=== PATIENT | female | born 1960 | race African-American/Black ===

== ENCOUNTER 2016-07-14 07:58 | Day surgery (SDC) | payer OTHER ==
[2016-07-14 08:46] LABS: BASOPHIL 0.7 % (0-2.0); EOSINOPHIL 5.3 % (0-4.5); MCH 37.6 pg (25.7-33.7); MCHC 36.9 g/dl (32.0-36.0); MEAN PLT VOLUME 8.5 fl (7.5-11.1); NEUTROPHILS 62.5 % (42.8-82.8); PLATELET COUNT 287 K/MM3 (134-434); RDW 28.5 % (11.6-15.6)
[2016-07-14 09:20] LABS: ALBUMIN 3.9 g/dl (3.4-5.0); BILIRUBIN,DIRECT 0.5 mg/dL (0.0-0.2); CALCIUM 9.2 mg/dL (8.5-10.1); CREATININE 0.9 mg/dL (0.55-1.02); TOT PROT 7.9 g/dl (6.4-8.2)
[2016-07-14 13:10] LABS: ANISOCYTOSIS 3+; MICROCYTOSIS 1+; POIKILOCYTOSIS 4+; POLYCHROMASIA 2+; TARGET CELLS 4+
--- NOTE | 2016-07-14 13:50 | HP ---
Satellite [facility] - Chief Complaint Chief Complaint: Here for f/u of sickkle cell. 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) Heme/Onc: Yes: Sickle Cell Disease Endocrine: Yes: Hypothyroidism - Current Medications Current Medications: Home Medications Medication Instructions Recorded Folic Acid - 1 mg PO DAILY 02/19/12 Levothyroxine [Synthroid -] 25 mcg PO DAILY 02/19/12 Ramipril [Altace] 5 mg PO DAILY 04/05/12 Spironolactone [Aldactone -] 25 mg PO DAILY 04/05/12 Hydroxyurea [Hydrea 500Mg Capsule 500 mg PO BID 04/18/13 -] Lansoprazole [Prevacid] 30 mg PO DAILY 08/29/13 Metoprolol Tartrate [Lopressor -] 50 mg PO BID 06/18/15 Oxycodone HCl/Acetaminophen 1 tab PO Q6H PRN #60 tablet 07/09/15 [Percocet 5-325 mg Tablet] Satellite Physical Exam - Physical Examination General Appearance: Well Nourished, Well Developed Lung: Clear to auscultation Heart: Regular rate & rhythm, Normal S1 Abdomen: No tenderness, Normal bowel sounds Extremities: No edema Neurological: Intact Satellite Impression/Plan - Impression/Plan Impression: Sickle cell anemia. will transfuse 2 unit PRBCs over 4hrs.- 8hrs. check CXR. start ceftin. If no improvement emmanuelle sheriff to ENT
--- NOTE | 2016-07-14 16:07 | CON.CARD ---
Consult Consult Specialty:: Cardiology Referred by:: Dr. Rodarte Reason for Consultation:: Resolved cardiomyopathy, palpitations - History of Present Illness Chief Complaint: Hoarse voice, anemia History of Present Illness: Patient is a 56 year old female with underlying history of nonischemic dilated cardiomyopathy with improvement in LV systolic function, in addition to sickle cell disease followed by Dr. Jaffe, left ankle fracture post repair, presented with hoarse voice, anemia planned for 2 U PRBC transfusion. She remains asymptomatic from CV-standpoint and denies chest pain, SOB or palpitations, near or true syncope, palpitations, PND, LE edema or orthopnea. 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) Endocrine: Yes: Hypothyroidism - Alcohol/Substance Use Hx Alcohol Use: No History of Substance Use: reports: None - Smoking History Smoking history: Never smoked Have you smoked in the past 12 months: No Aproximately how many cigarettes per day: 0 - Social History History of Recent Travel: No Home Medications - Allergies Allergies/Adverse Reactions: Allergies Allergy/AdvReac Type Severity Reaction Status Date / Time codeine [Codeine] Allergy Verified 10/01/15 08:49 - Home Medications Home Medications: Ambulatory Orders Folic Acid - 1 mg PO DAILY 02/19/12 Levothyroxine [Synthroid -] 25 mcg PO DAILY 02/19/12 Ramipril [Altace] 5 mg PO DAILY 04/05/12 Spironolactone [Aldactone -] 25 mg PO DAILY 04/05/12 Hydroxyurea [Hydrea 500Mg Capsule -] 500 mg PO BID 04/18/13 Lansoprazole [Prevacid] 30 mg PO DAILY 08/29/13 Metoprolol Tartrate [Lopressor -] 50 mg PO BID 06/18/15 Oxycodone HCl/Acetaminophen [Percocet 5-325 mg Tablet] 1 tab PO Q6H PRN #60 tablet 07/09/15 Review of Systems - Review of Systems HENT: reports: Other (Hoarse voice) Constitutional: Yes: No Distress, Calm Neck: Yes: Supple Respiratory: Yes: Regular, CTA Bilaterally Gastrointestinal: Yes: Normal Bowel Sounds, Soft Cardiovascular: Yes: Regular Rate and Rhythm JVD: No Carotid Bruit: No Heart Sounds: Yes: S1, S2 Edema: No - Other Data Labs, Other Data: CBC, BMP 07/14/16 08:35 07/14/16 08:35 Ejection Fraction %: LVEF > or = 40 % Problem List - Problems (1) Dilated cardiomyopathy Code(s): I42.0 - DILATED CARDIOMYOPATHY (2) Hypertension Code(s): I10 - ESSENTIAL (PRIMARY) HYPERTENSION Qualifiers: Hypertension type: essential hypertension Qualified Code(s): I10 - Essential (primary) hypertension (3) Hypothyroidism Code(s): E03.9 - HYPOTHYROIDISM, UNSPECIFIED Qualifiers: Hypothyroidism type: unspecified Qualified Code(s): E03.9 - Hypothyroidism, unspecified (4) Sickle cell anemia Code(s): D57.1 - SICKLE-CELL DISEASE WITHOUT CRISIS Qualifiers: Sickle-cell associated disorders: without crisis Qualified Code(s): D57.1 - Sickle-cell disease without crisis Assessment/Plan 1. Sickle cell disease with severe anemia 2. History of nonischemic dilated cardiomyopathy since resolved 3. Hypothyroidism PLAN: 1. Planned for transfusion with PRBC. Follow CBC 2. Continue Metoprolol ER 50 bid, Altace 5 qd, Aldactone 25 qd 3. Consider ENT referral as outpatient to [facility] if hoarse voice persists despite conservative therapy 4. Thank you for consultative opportunity, she has f/u to see me in ry
[2016-07-14] MEDS ORDERED: CEFUROXIME AXETIL 500 MG TABLET PO SCH ×2 (16:30→22:00)
[2016-07-14] MEDS ORDERED: FUROSEMIDE 40 MG/4 ML INJECTABLE VIAL IVPB ONE (16:48)
[2016-07-14 16:57] VITALS: BP 117/61; PULSE 91; TEMP 98.2; BMI 22.8
[2016-07-14] MEDS ORDERED: FUROSEMIDE 40 MG/4 ML INJECTABLE VIAL ONE (19:36)
== END 2016-07-14 22:28 | disposition home or self-care (01) ==
LOC: JBLOOD 07:58 → J7W 07:59 → JBLOOD 22:28
PROVIDERS: ATTEND Internal Medicine Hematology & Oncology
PROC: 30233N1 Transfusion of Nonautologous Red Blood Cells into Peripheral Vein, Percutaneous Approach (ICD-10-PCS; principal; 2016-07-14)
DX: D57.1 Sickle-cell disease without crisis (principal); E03.9 Hypothyroidism, unspecified; I50.9 Heart failure, unspecified; I10 Essential (primary) hypertension
CPT/HCPCS: 36415; 36430; 71010-TC; 80048; 80076; 85025; 86850; 86900; 86901; 86922; P9058

== ENCOUNTER 2016-08-25 08:23 | Day surgery (SDC) | payer OTHER ==
[2016-08-25 09:51] LABS: BASOPHIL 1.3 % (0-2.0); EOSINOPHIL 3.9 % (0-4.5); MCH 35.3 pg (25.7-33.7); MCHC 33.9 g/dl (32.0-36.0); MEAN CELL VOLUME 104.1 fl (80-96); MEAN PLT VOLUME 8.4 fl (7.5-11.1); NEUTROPHILS 71.9 % (42.8-82.8); PLATELET COUNT 504 K/MM3 (134-434); RDW 28.1 % (11.6-15.6); WHITE BLOOD COUNT 12.4 K/mm3 (4.0-10.0)
[2016-08-25 10:23] LABS: INR 1.07 (0.82-1.09); PROTHROMBIN TIME (PATIENT) 11.8 SEC (9.98-11.88)
[2016-08-25 11:46] LABS: ANISOCYTOSIS 4+; HYPOCHROMIA 2+; MICROCYTOSIS FEW; POIKILOCYTOSIS 2+; POLYCHROMASIA 4+
[2016-08-25 11:47] LABS: TEAR DROP CELLS FEW
--- NOTE | 2016-08-25 11:58 | PN ---
Progress Note (short form) - Note Progress Note: Initial Hospital Visit 56 year old with Sickle cell disease in for blood transfusion. On Hydrea- 500 mg daily. Transfusion dependent. Recent URI and trial of steroids for persistent cough resulted to increase bone pains. History of left ankle surgery with persistent pains. ROS No headaches, diplopia, epistaxis, dysphagia, SOB, GOLDEN , no nausea, emesis, diarrhea, melena, diffuse myalgias, arthralgias, left ankle pains Meds- Prednisone recently discontinued Hydrea-500 mg daily Last Vital Signs Temp Pulse Resp BP Pulse Ox 98.1 F 71 18 116/63 08/25/16 10:27 08/25/16 10:27 08/25/16 10:27 08/25/16 10:27 HEENT: TIANA, EOM Intact Oropharynx: No thrush, No mucositis Neck: Supple Nodes: Without adenopathy Cor: RSR, systolic murmur Lungs: Clear to P&A Abd: Soft, Normal bowel sounds, No organomegaly Ext:No significant edema Skin: No rashes, Integument intact CBC, BMP 08/25/16 09:22 Current Medications Generic Name Dose Route Start Last Admin Trade Name Freq PRN Reason Stop Dose Admin Furosemide 40 mg 08/25/16 13:00 Lasix - PO 08/25/16 13:01 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 Made aware that patient will still have significant anemia after one unit. Nonetheless requests only the one unit.
[2016-08-25] MEDS ORDERED: FUROSEMIDE 40 MG TABLET (FP) PO ONE ×2 (13:00→15:30)
[2016-08-25] MEDS ORDERED: POTASSIUM CHLORIDE TABS 20 MEQ TABLET.ER (FP) PO ONE ×2 (13:00→15:30)
[2016-08-25 15:45] VITALS: BP 130/78; PULSE 77; TEMP 97.1
== END 2016-08-25 15:48 | disposition home or self-care (01) ==
LOC: JBLOOD 08:23 → J7W 08:29 → JBLOOD 15:48
PROVIDERS: ATTEND Internal Medicine Hematology & Oncology
PROC: 30233N1 Transfusion of Nonautologous Red Blood Cells into Peripheral Vein, Percutaneous Approach (ICD-10-PCS; principal; 2016-08-25)
DX: D57.80 Other sickle-cell disorders without crisis (principal)
CPT/HCPCS: 36415; 36430; 83735; 85025; 85027; 85610; 86850; 86900; 86901; 86922; P9038; P9058

== ENCOUNTER 2016-09-21 08:48 | Emergency (ER) | payer OTHER ==
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
[2016-09-21] MEDS ORDERED: METOCLOPRAMIDE HCL INJECTION 10 MG/2 ML VIAL ONE (09:11)
[2016-09-21] MEDS ORDERED: morphine CARPU-JECT 2 MG/1 ML DISP.SYRIN ONE (09:12)
[2016-09-21] MEDS: METOCLOPRAMIDE HCL INJECTION 10 MG/2 ML VIAL IVPUSH ONE (09:18)
[2016-09-21] MEDS: morphine CARPU-JECT 2 MG/1 ML DISP.SYRIN IVPUSH ONE (09:18)
[2016-09-21 10:13] VITALS: BMI 22.8
[2016-09-21 10:27] LABS: BASOPHIL 0.6 % (0-2.0); EOSINOPHIL 1.7 % (0-4.5); MCH 35.1 pg (25.7-33.7); MCHC 34.1 g/dl (32.0-36.0); MEAN CELL VOLUME 102.9 fl (80-96); MEAN PLT VOLUME 8.6 fl (7.5-11.1); NEUTROPHILS 77.1 % (42.8-82.8); PLATELET COUNT 229 K/MM3 (134-434); RDW 27.3 % (11.6-15.6); WHITE BLOOD COUNT 17.2 K/mm3 (4.0-10.0)
[2016-09-21] MEDS ORDERED: levETIRAcetam 500 MG/5 ML INJECTION VIAL IVPB ONE (10:30)
[2016-09-21] MEDS ORDERED: morphine CARPU-JECT 4 MG/1 ML DISP.SYRIN ONE (10:30)
[2016-09-21] MEDS: morphine CARPU-JECT 4 MG/1 ML DISP.SYRIN IVPUSH ONE (10:38)
[2016-09-21] MEDS: levETIRAcetam 500 MG/5 ML INJECTION VIAL IVPB ONE (10:40)
[2016-09-21 10:48] LABS: ALBUMIN 4.1 g/dl (3.4-5.0); ALK PHOS 119 U/L (45-117); ANION GAP 10 (8-16); BILIRUBIN,TOTAL 4.9 mg/dL (0.2-1.0); CALCIUM 8.6 mg/dL (8.5-10.1); CO2 23 mmol/L (21-32); COCKROFT - GAULT 81.685; CREATININE 0.8 mg/dL (0.55-1.02); GLUCOSE,RANDOM 136 mg/dL (74-106); SGOT/AST 54 U/L (15-37); SGPT/ALT 28 U/L (12-78); TOT PROT 7.9 g/dl (6.4-8.2)
[2016-09-21 10:53] LABS: INR 1.12 (0.82-1.09); PROTHROMBIN TIME (PATIENT) 12.3 SEC (9.98-11.88)
[2016-09-21 11:04] VITALS: BP 149/71
[2016-09-21 11:23] VITALS: PULSE 71; TEMP 98.2
--- NOTE | 2016-09-21 11:35 | EKG ---
Test Reason : Blood Pressure : / mmHG Vent. Rate : 085 BPM Atrial Rate : 085 BPM P-R Int : 146 ms QRS Dur : 090 ms QT Int : 364 ms P-R-T Axes : 078 065 083 degrees QTc Int : 433 ms NORMAL SINUS RHYTHM NORMAL ECG WHEN COMPARED WITH ECG OF 08-JUL-2015 10:21, PREMATURE VENTRICULAR COMPLEXES ARE NO LONGER PRESENT NONSPECIFIC T WAVE ABNORMALITY NOW EVIDENT IN LATERAL LEADS Confirmed by GEORGE BELL, JATINDER ([id number]) on 09/21/2016 11:35:24 AM Referred By: Confirmed By:JATINDER VAZQUEZ MD
[2016-09-21 13:46] LABS: ANISOCYTOSIS 3+; MICROCYTOSIS FEW; POIKILOCYTOSIS 4+; TARGET CELLS 1+
[2016-09-21 13:47] LABS: POLYCHROMASIA 2+
== END 2016-09-21 11:23 | disposition short-term general hospital (02) ==
LOC: JER 08:48
DX: I60.8 Other nontraumatic subarachnoid hemorrhage (principal); I25.10 Atherosclerotic heart disease of native coronary artery without angina pectoris; I11.0 Hypertensive heart disease with heart failure; E03.9 Hypothyroidism, unspecified; D57.1 Sickle-cell disease without crisis; V47.5XXA Car driver injured in collision with fixed or stationary object in traffic accident, initial encounter; Y92.414 Local residential or business street as the place of occurrence of the external cause; W22.11XA Striking against or struck by driver side automobile airbag, initial encounter; Y93.89 Activity, other specified; Y99.8 Other external cause status
CPT/HCPCS: 36415; 70450-TC; 72125-TC; 80053; 85025; 85610; 86850; 86900; 86901; 93005; 93010; 99285-25

== ENCOUNTER 2016-12-22 08:08 | Day surgery (SDC) | payer OTHER ==
[2016-12-22 08:42] LABS: MCH 35.1 pg (25.7-33.7); MCHC 35.6 g/dl (32.0-36.0); MEAN CELL VOLUME 98.5 fl (80-96); MEAN PLT VOLUME 8.4 fl (7.5-11.1); PLATELET COUNT 288 K/MM3 (134-434); RDW 33.3 % (11.6-15.6); WHITE BLOOD COUNT 13.6 K/mm3 (4.0-10.0)
[2016-12-22] MEDS ORDERED: FUROSEMIDE 40 MG/4 ML INJECTABLE VIAL IVPUSH ONE (09:00)
[2016-12-22 09:05] LABS: ALBUMIN 3.8 g/dl (3.4-5.0); ALK PHOS 131 U/L (45-117); ANION GAP 7 (8-16); BILIRUBIN,TOTAL 4.7 mg/dL (0.2-1.0); CALCIUM 8.7 mg/dL (8.5-10.1); CO2 22 mmol/L (21-32); CREATININE 1.1 mg/dL (0.55-1.02); GLUCOSE,RANDOM 87 mg/dL (74-106); SGOT/AST 67 U/L (15-37); SGPT/ALT 42 U/L (12-78); TOT PROT 7.5 g/dl (6.4-8.2)
[2016-12-22 11:40] LABS: ANISOCYTOSIS 3+; PLATELET ESTIMATE ADEQUATE (NORMAL)
[2016-12-22 12:41] VITALS: TEMP 98.6
--- NOTE | 2016-12-22 13:37 | HP ---
Satellite [facility] - Chief Complaint Chief Complaint: Satellite visit for PRBC transfusion History of Present Illness: is a 56 year old Female with Sickle cell Disease On hydrea. She is transfusion dependent. She is here for transfusion of PRBC.She denies any complains. She feels well. She also has H/O cardiomyopathy , she follows up with Cardiology as an OP History Source: Patient Limitations to Obtaining History: No Limitations - Past Medical History Allergies/Adverse Reactions: Allergies Allergy/AdvReac Type Severity Reaction Status Date / Time codeine [Codeine] Allergy Verified 09/21/16 09:08 SENIOR PROJECT COORDINATOR: No: Peripheral Neuropathy, Syncope Cardiovascular: Yes: CHF, HTN, Other (Nonischemic dilated cardiomyopathy now with normal LV function) Pulmonary: No: Asthma Gastrointestinal: No: Ascites Hepatobiliary: No: Cirrhosis, Cholelithiasis, Cholecystitis Heme/Onc: Yes: Sickle Cell Disease Endocrine: Yes: Hypothyroidism - Current Medications Current Medications: Home Medications Medication Instructions Recorded Folic Acid - 1 mg PO DAILY 02/19/12 Levothyroxine [Synthroid -] 25 mcg PO DAILY 02/19/12 Ramipril [Altace] 5 mg PO DAILY 04/05/12 Spironolactone [Aldactone -] 25 mg PO DAILY 04/05/12 Hydroxyurea [Hydrea 500Mg Capsule 500 mg PO BID 04/18/13 -] Lansoprazole [Prevacid] 30 mg PO DAILY 08/29/13 Metoprolol Tartrate [Lopressor -] 50 mg PO BID 06/18/15 Satellite Physical Exam - Physical Examination Vital Signs: Vital Signs Period Temp Pulse Resp BP Sys/Avila Pulse Ox Last 24 Hr 98.0 F-98.6 F 64-64 18-20 99-108/64-69 96 General Appearance: Well Nourished, Well Developed, Alert & Oriented x3 ENT: No Discharge Lung: Clear to auscultation Heart: Regular rate & rhythm Abdomen: Soft, No tenderness Extremities: No edema Satellite Impression/Plan - Impression/Plan Impression: Sickle cell anemia. will transfuse 1 unit PRBC. Hyper Kalemia of 5.3 - given kayexalate and also lasic ordered. Patient has follow-up with of Cardiology
[2016-12-22] MEDS ORDERED: FUROSEMIDE 40 MG/4 ML INJECTABLE VIAL ONE (14:57)
[2016-12-22 16:34] VITALS: BP 117/56; PULSE 67
[2016-12-22 17:06] LABS: MCH 32.7 pg (25.7-33.7); MCHC 34.7 g/dl (32.0-36.0); MEAN CELL VOLUME 94.2 fl (80-96); MEAN PLT VOLUME 8.7 fl (7.5-11.1); PLATELET COUNT 298 K/MM3 (134-434); RDW 31.5 % (11.6-15.6); WHITE BLOOD COUNT 11.4 K/mm3 (4.0-10.0)
== END 2016-12-22 16:37 | disposition home or self-care (01) ==
LOC: JONCBLOOD 08:08 → J7W 08:10 → JONCBLOOD 16:37
PROVIDERS: ATTEND Internal Medicine Hematology & Oncology
PROC: 30233N1 Transfusion of Nonautologous Red Blood Cells into Peripheral Vein, Percutaneous Approach (ICD-10-PCS; principal; 2016-12-22)
PROC: 3E033GC Introduction of Other Therapeutic Substance into Peripheral Vein, Percutaneous Approach (ICD-10-PCS; 2016-12-22)
DX: D57.80 Other sickle-cell disorders without crisis (principal)
CPT/HCPCS: 36415; 36430; 80053; 85025; 85027; 85044; 86850; 86900; 86901; 86922; P9038; P9058

== ENCOUNTER 2017-02-02 08:07 | Day surgery (SDC) | payer OTHER ==
[2017-02-02 09:16] LABS: MCHC 35.9 g/dl (32.0-36.0); MEAN CELL VOLUME 103.1 fl (80-96); MEAN PLT VOLUME 8.4 fl (7.5-11.1); PLATELET COUNT 316 K/MM3 (134-434); RDW 29.7 % (11.6-15.6); WHITE BLOOD COUNT 11.2 K/mm3 (4.0-10.0)
[2017-02-02 10:26] LABS: ANISOCYTOSIS 3+; POLYCHROMASIA 2+
[2017-02-02 10:27] LABS: MACROCYTOSIS 2+; MICROCYTOSIS FEW; TARGET CELLS 2+
--- NOTE | 2017-02-02 14:41 | HP ---
Satellite [facility] - Chief Complaint Chief Complaint: PAtient seen and examined. 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) Heme/Onc: Yes: Sickle Cell Disease Endocrine: Yes: Hypothyroidism - Current Medications Current Medications: Home Medications Medication Instructions Recorded Folic Acid - 1 mg PO DAILY 02/19/12 Levothyroxine [Synthroid -] 25 mcg PO DAILY 02/19/12 Ramipril [Altace] 5 mg PO DAILY 04/05/12 Spironolactone [Aldactone -] 25 mg PO DAILY 04/05/12 Hydroxyurea [Hydrea 500Mg Capsule 500 mg PO BID 04/18/13 -] Lansoprazole [Prevacid] 30 mg PO DAILY 08/29/13 Metoprolol Tartrate [Lopressor -] 50 mg PO BID 06/18/15 Satellite Physical Exam - Physical Examination Vital Signs: Vital Signs Period Temp Pulse Resp BP Sys/Avila Pulse Ox Last 24 Hr 97.2 F 63 16 127/67 General Appearance: Well Nourished, Alert & Oriented x3 Lung: Clear to auscultation, Normal air movement Heart: Regular rate & rhythm, Normal S1, Normal S2 Abdomen: Soft, No tenderness Extremities: No edema Neurological: Intact Satellite Impression/Plan - Impression/Plan Impression: Sickle cell anemia. transfuse 1 unit PRBCs
[2017-02-02 16:21] VITALS: BP 140/68; PULSE 80; TEMP 98.6
[2017-02-02 16:46] LABS: MCH 36.6 pg (25.7-33.7); MCHC 36.2 g/dl (32.0-36.0); MEAN CELL VOLUME 101.2 fl (80-96); MEAN PLT VOLUME 8.8 fl (7.5-11.1); PLATELET COUNT 316 K/MM3 (134-434); RDW 27.4 % (11.6-15.6); WHITE BLOOD COUNT 10.2 K/mm3 (4.0-10.0)
[2017-02-02 17:37] LABS: ANISOCYTOSIS 3+; MACROCYTOSIS 1+; PLATELET ESTIMATE ADEQUATE (NORMAL); POIKILOCYTOSIS 1+; POLYCHROMASIA 1+
[2017-02-02 17:38] LABS: TARGET CELLS 1+
[2017-02-02 17:42] LABS: HOWELL-JOLLY BODIES SEEN
== END 2017-02-02 16:22 | disposition home or self-care (01) ==
LOC: J7W 08:07 → JONCBLOOD 08:07
PROVIDERS: ATTEND Internal Medicine Hematology & Oncology
PROC: 30233N1 Transfusion of Nonautologous Red Blood Cells into Peripheral Vein, Percutaneous Approach (ICD-10-PCS; principal; 2017-02-02)
DX: D57.80 Other sickle-cell disorders without crisis (principal)
CPT/HCPCS: 36415; 36430; 85027; 86850; 86900; 86901; 86922; P9038; P9058

== ENCOUNTER 2017-03-16 08:14 | Day surgery (SDC) | payer OTHER ==
[2017-03-16 08:59] LABS: BASOPHIL 1.1 % (0-2.0); EOSINOPHIL 7.5 % (0-4.5); MCH 37.7 pg (25.7-33.7); MCHC 34.9 g/dl (32.0-36.0); MEAN PLT VOLUME 8.4 fl (7.5-11.1); NEUTROPHILS 73.1 % (42.8-82.8); PLATELET COUNT 302 K/MM3 (134-434); RDW 29.3 % (11.6-15.6); WHITE BLOOD COUNT 11.6 K/mm3 (4.0-10.0)
[2017-03-16 09:15] LABS: ALBUMIN 3.7 g/dl (3.4-5.0); ALK PHOS 131 U/L (45-117); ANION GAP 9 (8-16); BILIRUBIN,TOTAL 4.9 mg/dL (0.2-1.0); CALCIUM 8.8 mg/dL (8.5-10.1); CO2 23 mmol/L (21-32); CREATININE 0.8 mg/dL (0.55-1.02); GLUCOSE,RANDOM 84 mg/dL (74-106); SGOT/AST 50 U/L (15-37); SGPT/ALT 29 U/L (12-78); TOT PROT 7.5 g/dl (6.4-8.2)
[2017-03-16 10:53] VITALS: BMI 23.2
[2017-03-16 12:57] LABS: MACROCYTOSIS 2+; POLYCHROMASIA 2+
[2017-03-16 12:58] LABS: ANISOCYTOSIS 2+; MICROCYTOSIS 1+; OVALOCYTE 2+; TARGET CELLS 2+
--- NOTE | 2017-03-16 14:53 | HP ---
Satellite [facility] - Chief Complaint Chief Complaint: Patient here for f/u of sickle cell disease. 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) Heme/Onc: Yes: Sickle Cell Disease Endocrine: Yes: Hypothyroidism - Current Medications Current Medications: Home Medications Medication Instructions Recorded Folic Acid - 1 mg PO DAILY 02/19/12 Levothyroxine [Synthroid -] 25 mcg PO DAILY 02/19/12 Ramipril [Altace] 5 mg PO DAILY 04/05/12 Spironolactone [Aldactone -] 25 mg PO DAILY 04/05/12 Hydroxyurea [Hydrea 500Mg Capsule 500 mg PO BID 04/18/13 -] Lansoprazole [Prevacid] 30 mg PO DAILY 08/29/13 Metoprolol Tartrate [Lopressor -] 50 mg PO BID 06/18/15 Satellite Physical Exam - Physical Examination Vital Signs: Vital Signs Period Temp Pulse Resp BP Sys/Avila Pulse Ox Last 24 Hr 98.5 F 68 18 123/65 General Appearance: Well Nourished, Alert & Oriented x3 Lung: Clear to auscultation, Normal air movement Heart: Regular rate & rhythm, Normal S1, Normal S2 Abdomen: Soft, No tenderness Extremities: No edema Neurological: Intact Satellite Impression/Plan - Impression/Plan Impression: Sickle cell disease. Here for blood transfusion. discontinue Kayexalate. K4.6. to f/u with Dr. Swanson after reepeat CMP next week
[2017-03-16 15:41] VITALS: BP 128/75; PULSE 61; TEMP 98.4
== END 2017-03-16 15:55 | disposition home or self-care (01) ==
LOC: JONCBLOOD 08:14 → J7W 08:15 → JONCBLOOD 15:55
PROVIDERS: ATTEND Internal Medicine Hematology & Oncology
PROC: 30233N1 Transfusion of Nonautologous Red Blood Cells into Peripheral Vein, Percutaneous Approach (ICD-10-PCS; principal; 2017-03-16)
DX: D57.80 Other sickle-cell disorders without crisis (principal)
CPT/HCPCS: 36415; 36430; 80053; 83735; 85025; 86850; 86900; 86901; 86922; P9038; P9058

== ENCOUNTER 2017-06-14 08:04 | Day surgery (SDC) | payer OTHER ==
--- NOTE | 2017-06-14 09:15 | HP ---
Satellite [facility] - Chief Complaint Chief Complaint: Patient with sickle cell anemia. 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) Heme/Onc: Yes: Sickle Cell Disease Endocrine: Yes: Hypothyroidism - Current Medications Current Medications: Home Medications Medication Instructions Recorded Folic Acid - 1 mg PO DAILY 02/19/12 Levothyroxine [Synthroid -] 25 mcg PO DAILY 02/19/12 Ramipril [Altace] 5 mg PO DAILY 04/05/12 Spironolactone [Aldactone -] 25 mg PO DAILY 04/05/12 Hydroxyurea [Hydrea 500Mg Capsule 500 mg PO BID 04/18/13 -] Lansoprazole [Prevacid] 30 mg PO DAILY 08/29/13 Metoprolol Tartrate [Lopressor -] 50 mg PO BID 06/18/15 Aspirin [Aspirin EC] 81 mg PO 03/16/17 Clopidogrel Bisulfate [Plavix -] 75 mg PO DAILY 03/16/17 Satellite Physical Exam - Physical Examination General Appearance: Well Nourished, Alert & Oriented x3 Lung: Clear to auscultation, Normal air movement Heart: Regular rate & rhythm, Normal S1, Normal S2 Abdomen: Soft, No tenderness, Normal bowel sounds Extremities: No edema Neurological: Intact Satellite Impression/Plan - Impression/Plan Impression: 57 y/o patient with sickle cell anemia. Here for elective blood transfusion. Getting 1 unit Packed Red blood Cells over 4 hrs. check CBC prior to transfusion. for cerebral angiogam at [facility] on 06/19
[2017-06-14 10:04] LABS: ALBUMIN 3.8 g/dl (3.4-5.0); ALK PHOS 125 U/L (45-117); ANION GAP 7 (8-16); BILIRUBIN,DIRECT 0.7 mg/dL (0.0-0.2); BILIRUBIN,TOTAL 6.7 mg/dL (0.2-1.0); BLOOD UREA NITROGEN 12 mg/dL (7-18); CALCIUM 8.5 mg/dL (8.5-10.1); CHLORIDE 112 mmol/L (98-107); CO2 24 mmol/L (21-32); CREATININE 0.9 mg/dL (0.55-1.02); GLUCOSE,RANDOM 86 mg/dL (74-106); POTASSIUM 4.4 mmol/L (3.5-5.1); SGOT/AST 66 U/L (15-37); SGPT/ALT 45 U/L (12-78); SODIUM 143 mmol/L (136-145); TOT PROT 7.3 g/dl (6.4-8.2)
[2017-06-14 10:20] LABS: BASO % 1.1 % (0-2.0); EOS % 5.2 % (0-4.5); HEMATOCRIT 18.4 % (32.4-45.2); MCHC 35.4 g/dl (32.0-36.0); MEAN CELL VOLUME 107.6 fl (80-96); MEAN PLT VOLUME 9.1 fl (7.5-11.1); MONO % 8.3 % (3.8-10.2); NEUT % 70.4 % (42.8-82.8); PLATELET COUNT 243 K/MM3 (134-434); RBC 1.71 M/mm3 (3.60-5.2); RDW 29.4 % (11.6-15.6); WHITE BLOOD COUNT 8.8 K/mm3 (4.0-10.0)
[2017-06-14 10:30] LABS: HEMOGLOBIN 6.5 GM/dL (10.7-15.3)
[2017-06-14 13:58] VITALS: TEMP 98
[2017-06-14 15:59] VITALS: BP 138/79; PULSE 76
== END 2017-06-14 15:45 | disposition home or self-care (01) ==
LOC: JONCBLOOD 08:04 → J7W 08:51 → JONCBLOOD 15:45
PROVIDERS: ATTEND Internal Medicine Hematology & Oncology
PROC: 30233N1 Transfusion of Nonautologous Red Blood Cells into Peripheral Vein, Percutaneous Approach (ICD-10-PCS; principal; 2017-06-14)
DX: D57.80 Other sickle-cell disorders without crisis (principal)
CPT/HCPCS: 36415; 36430; 80053; 80076; 85025; 86850; 86900; 86901; 86922; P9038; P9058

== ENCOUNTER 2017-08-02 08:12 | Day surgery (SDC) | payer OTHER ==
[2017-08-02 09:11] LABS: HEMATOCRIT 18.4 % (32.4-45.2); MEAN CELL VOLUME 109.6 fl (80-96); MEAN PLT VOLUME 8.7 fl (7.5-11.1); PLATELET COUNT 299 K/MM3 (134-434); RBC 1.68 M/mm3 (3.60-5.2); RDW 26.9 % (11.6-15.6); WHITE BLOOD COUNT 9.7 K/mm3 (4.0-10.0)
[2017-08-02 09:18] LABS: MCH 40.5 pg (25.7-33.7)
[2017-08-02 09:20] LABS: HEMOGLOBIN 6.8 GM/dL (10.7-15.3)
[2017-08-02 09:35] LABS: ALBUMIN 3.9 g/dl (3.4-5.0); ANION GAP 5 (8-16); BILIRUBIN,TOTAL 7.2 mg/dL (0.2-1.0); BLOOD UREA NITROGEN 13 mg/dL (7-18); CALCIUM 8.3 mg/dL (8.5-10.1); CHLORIDE 111 mmol/L (98-107); CO2 25 mmol/L (21-32); CREATININE 0.7 mg/dL (0.55-1.02); GLUCOSE,RANDOM 94 mg/dL (74-106); POTASSIUM 4.3 mmol/L (3.5-5.1); SGOT/AST 65 U/L (15-37); SGPT/ALT 41 U/L (12-78); SODIUM 141 mmol/L (136-145); TOT PROT 7.5 g/dl (6.4-8.2)
[2017-08-02 09:36] LABS: ALK PHOS 155 U/L (45-117)
--- NOTE | 2017-08-02 12:40 | HP ---
Satellite [facility] - Chief Complaint History of Present Illness: Here for PRBCs. pt seen and examined. 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) Heme/Onc: Yes: Sickle Cell Disease Endocrine: Yes: Hypothyroidism - Current Medications Current Medications: Home Medications Medication Instructions Recorded Folic Acid - 1 mg PO DAILY 02/19/12 Levothyroxine [Synthroid -] 25 mcg PO DAILY 02/19/12 Ramipril [Altace] 5 mg PO DAILY 04/05/12 Spironolactone [Aldactone -] 25 mg PO DAILY 04/05/12 Hydroxyurea [Hydrea 500Mg Capsule 500 mg PO BID 04/18/13 -] Lansoprazole [Prevacid] 30 mg PO DAILY 08/29/13 Metoprolol Tartrate [Lopressor -] 50 mg PO BID 06/18/15 Aspirin [Aspirin EC] 81 mg PO 03/16/17 Clopidogrel Bisulfate [Plavix -] 75 mg PO DAILY 03/16/17 Satellite Physical Exam - Physical Examination General Appearance: Well Nourished, Well Developed, Alert & Oriented x3, No Distress Lung: Clear to auscultation, Normal air movement Heart: Regular rate & rhythm, Normal S1, Normal S2 Abdomen: Soft, No tenderness, No masses Extremities: No edema Neurological: Alert, Oriented Satellite Impression/Plan - Impression/Plan Impression: Hgb6.8. for one unit of PRBC
[2017-08-02 16:33] LABS: HEMATOCRIT 21.8 % (32.4-45.2); MCH 37.8 pg (25.7-33.7); MCHC 36.8 g/dl (32.0-36.0); MEAN CELL VOLUME 102.8 fl (80-96); MEAN PLT VOLUME 9.2 fl (7.5-11.1); PLATELET COUNT 290 K/MM3 (134-434); RBC 2.12 M/mm3 (3.60-5.2); RDW 27.8 % (11.6-15.6); WHITE BLOOD COUNT 8.1 K/mm3 (4.0-10.0)
[2017-08-02 16:47] LABS: ADD RBC MORPHOLOGY YES
[2017-08-02 17:06] VITALS: BP 117/62; PULSE 75; TEMP 98
[2017-08-02 17:16] LABS: ANISOCYTOSIS 3+; OVALOCYTE 2+
== END 2017-08-02 17:08 | disposition home or self-care (01) ==
LOC: JONCBLOOD 08:12 → J7W 08:26 → JONCBLOOD 17:08
PROVIDERS: ATTEND Internal Medicine Hematology & Oncology
PROC: 30233N1 Transfusion of Nonautologous Red Blood Cells into Peripheral Vein, Percutaneous Approach (ICD-10-PCS; principal; 2017-08-02)
DX: D57.1 Sickle-cell disease without crisis (principal); I10 Essential (primary) hypertension; I50.9 Heart failure, unspecified; E03.9 Hypothyroidism, unspecified
CPT/HCPCS: 36415; 36430; 36511; 80048; 80076; 85027; 86850; 86900; 86901; 86922; P9054

== ENCOUNTER 2017-08-21 20:07 | Emergency (ER) | payer OTHER ==
[2017-08-21 20:17] VITALS: BP 155/81; PULSE 95; TEMP 98.4; BMI 23.2
--- NOTE | 2017-08-21 20:19 | PDOC ---
Rapid Medical Evaluation Chief Complaint: Toothache Time Seen by Provider: 08/21/17 20:15 Medical Evaluation: Allergies Allergy/AdvReac Type Severity Reaction Status Date / Time codeine [Codeine] Allergy Verified 09/21/16 09:08 08/21/17 20:15 57 year old female with history of SCD on hydroxyurea, cerebral aneurysm/SAH stroke s/p coiling at [facility] 2017 who presents with right jaw pain and swelling. No fevers/chills. No dental pain. -To FT for further evaluation.
--- NOTE | 2017-08-21 20:40 | PDOC ---
History of Present Illness <Bebe Odom - Last Filed: 08/21/17 21:22> - History of Present Illness Initial Comments: 08/21/17 21:48 The patient is a 57F, with PMHx of sickle cell disease, hypothyroidism, CHF, HTN , 9.5 cm ruptured aneurysm (September 2016), who presents with right jaw pain and swelling since earlier today. Patient states that last night she was chewing and she felt a pop in her jaw. She states that she didnt think much of it until this morning when she noticed some pain and swelling to the area. She went to urgent care and was referred to the ER. She denies any bleeding or purulent discharge from the mouth/gums. She denies any recent changes in soaps or perfumes. She describes her pain as a tingling feeling that is painful to the touch. PCP: Dickson Au World Language Teacher: Slava Jaffe <Fior Jay - Last Filed: 08/21/17 21:53> - General Chief Complaint: Pain Stated Complaint: PAIN Time Seen by Provider: 08/21/17 20:15 Past History - Past Medical History Anemia: Yes (sickle cell) Asthma: No Cancer: No Cardiac Disorders: Yes (CARDIOMYOPATHY) CVA: No COPD: No CHF: Yes Dementia: No Diabetes: No GI Disorders: No Disorders: No HTN: Yes Hypercholesterolemia: No Liver Disease: No Seizures: No Thyroid Disease: Yes (HYPOTHYROIDISM) - Surgical History Abdominal Surgery: No Appendectomy: No Cardiac Surgery: No Cholecystectomy: No Lung Surgery: No Neurologic Surgery: No Orthopedic Surgery: Yes (fracture of left ankle) - Suicide/Smoking/Psychosocial Hx Smoking Status: No Smoking History: Never smoked Have you smoked in the past 12 months: No Number of Cigarettes Smoked Daily: 0 Information on smoking cessation initiated: No Hx Alcohol Use: No Drug/Substance Use Hx: No Substance Use Type: None Hx Substance Use Treatment: No <Bebe Odom - Last Filed: 08/21/17 21:22> <Fior Jay - Last Filed: 08/21/17 21:53> - Past Medical History Allergies/Adverse Reactions: Allergies Allergy/AdvReac Type Severity Reaction Status Date / Time codeine [Codeine] Allergy Verified 08/21/17 20:17 Home Medications: Ambulatory Orders Folic Acid - 1 mg PO DAILY 02/19/12 Levothyroxine [Synthroid -] 25 mcg PO DAILY 02/19/12 Ramipril [Altace] 5 mg PO DAILY 04/05/12 Spironolactone [Aldactone -] 25 mg PO DAILY 04/05/12 Hydroxyurea [Hydrea 500Mg Capsule -] 500 mg PO BID 04/18/13 Lansoprazole [Prevacid] 30 mg PO DAILY 08/29/13 Metoprolol Tartrate [Lopressor -] 50 mg PO BID 06/18/15 Aspirin [Aspirin EC] 81 mg PO ASDIR 03/16/17 Clopidogrel Bisulfate [Plavix -] 75 mg PO DAILY 03/16/17 Amoxicillin/Potassium Clav [Augmentin 875-125 Tablet] 1 each PO BID #14 tablet 08/21/17 Review of Systems - Review of Systems Comments:: 08/21/17 21:49 GENERAL/CONSTITUTIONAL: No fever or chills. No weakness. HEAD, EYES, EARS, NOSE AND THROAT: No change in vision. No ear pain or discharge. No sore throat. GASTROINTESTINAL: No nausea, vomiting, diarrhea or constipation. GENITOURINARY: No dysuria, frequency, or change in urination. CARDIOVASCULAR: No chest pain or shortness of breath. RESPIRATORY: No cough, wheezing, or hemoptysis. MUSCULOSKELETAL: + right sided jaw pain and swelling. No neck or back pain. SKIN: No rash NEUROLOGIC: No headache, vertigo, loss of consciousness, or change in strength/ sensation. ENDOCRINE: No increased thirst. No abnormal weight change. ALLERGIC/IMMUNOLOGIC: No hives or skin allergy. <Fior Jay - Last Filed: 08/21/17 21:53> *Physical Exam - Vital Signs Last Vital Signs Temp Pulse Resp BP Pulse Ox 98.4 F 95 H 19 155/81 93 L 08/21/17 20:15 08/21/17 20:15 08/21/17 20:15 08/21/17 20:15 08/21/17 20:15 <Bebe Odom - Last Filed: 08/21/17 21:22> - Vital Signs Last Vital Signs Temp Pulse Resp BP Pulse Ox 98.4 F 95 H 19 155/81 93 L 08/21/17 20:15 08/21/17 20:15 08/21/17 20:15 08/21/17 20:15 08/21/17 20:15 - Physical Exam Comments: 08/21/17 21:50 GENERAL: Awake, alert, and fully oriented, in no acute distress HEAD: No signs of trauma. Right sided non-pulsating swelling on chin, no errythema, some flucatant. No gum infections. EYES: PERRLA, EOMI, sclera anicteric, conjunctiva clear ENT: Auricles normal inspection, hearing grossly normal, nares patent, oropharynx clear without exudates. Moist mucosa NECK: Normal ROM, supple, no lymphadenopathy, JVD. LUNGS: Breath sounds equal, clear to auscultation bilaterally. No wheezes, and no crackles HEART: Regular rate and rhythm, normal S1 and S2, no murmurs, rubs or gallops ABDOMEN: Soft, nontender, normoactive bowel sounds. No guarding, no rebound. No masses EXTREMITIES: Normal range of motion, no edema. No clubbing or cyanosis. No cords, erythema, or tenderness NEUROLOGICAL: Cranial nerves II through XII grossly intact. Normal speech, normal gait SKIN: Warm, Dry, normal turgor, no rashes or lesions noted. <Fior Jay - Last Filed: 08/21/17 21:53> ED Treatment Course - Medications Given in the ED: ED Medications Discontinued Medications Generic Name Dose Route Start Last Admin Trade Name Freq PRN Reason Stop Dose Admin Acetaminophen 650 mg 08/21/17 20:57 08/21/17 21:05 Tylenol - PO 08/21/17 20:58 Not Given ONCE ONE Amoxicillin/Clavulanate Potassium 1 tab 08/21/17 21:40 08/21/17 21:42 Augmentin - 875mg Tablet PO 08/21/17 21:41 1 tab ONCE ONE Administration <Fior Jay - Last Filed: 08/21/17 21:53> Medical Decision Making - Medical Decision Making 08/21/17 20:57 A portion of this note was documented by scribe services under my direction. I have reviewed the details of the note, within reason, and agree with the documentation with the following case summary and management plan written by me. Patient is a 57-year-old female past medical history of SCD, aneurysm status post repair 2017, who presents to the emergency department today with swelling to her right chin/jaw. Patient states that she felt a pop yesterday and the swelling happened overnight. She states that the swelling has not changed in size she noticed it. It is nonpulsating. Possible early infection. X-ray obtained of the mandible with no obvious evidence of osteomyelitis on wet read. We'll discharge home on antibiotics. Instructed patient to take her tramadol. Patient is to follow-up with her primary care doctor tomorrow. Strict return precautions given. Patient understands all discharge instructions and all questions were answered. <Bebe Odom - Last Filed: 08/21/17 21:22> *DC/Admit/Observation/Transfer - Discharge Dispostion Admit: No <Bebe Odom - Last Filed: 08/21/17 21:22> - Attestations Scribe Attestion: 08/21/17 21:52 Documentation prepared by Fior Jay, acting as medical appliance maker for JARVIS Hanna. <Fior Jay - Last Filed: 08/21/17 21:53> Diagnosis at time of Disposition: Swelling of gums - Discharge Dispostion Disposition: HOME - Prescriptions Prescriptions: Amoxicillin/Potassium Clav [Augmentin 875-125 Tablet] 1 each PO BID #14 tablet - Referrals Referrals: Dickson Au MD [Primary Care Provider] - - Patient Instructions Printed Discharge Instructions: DI for Tooth Abscess Additional Instructions: You have swelling to your chin and gums. Please take the Augmentin twice a day for one week as prescribed. Please continue to follow-up with your primary care doctor on Sunday. You may use warm water gargles to help with the swelling. Please take the tramadol as prescribed for your pain. Return to the emergency department immediately if the swelling gets worse, if the pain gets worse, if he noticed redness around the site, if you cannot swallow, or if you have any changes in your symptoms. - Post Discharge Activity
[2017-08-21] MEDS ORDERED: ACETAMINOPHEN 325 MG TABLET (FP) PO ONE (20:57)
[2017-08-21] MEDS ORDERED: ACETAMINOPHEN 325 MG TABLET (FP) ONE (20:57)
[2017-08-21] MEDS ORDERED: AMOX TR/POT CLAV 875MG/125MG TABLETS (FP) PO ONE (21:40)
[2017-08-21] MEDS ORDERED: AMOX TR/POT CLAV 875MG/125MG TABLETS (FP) ONE (21:42)
== END 2017-08-21 21:51 | disposition home or self-care (01) ==
LOC: JERFT 20:07
DX: K06.8 Other specified disorders of gingiva and edentulous alveolar ridge (principal); I25.10 Atherosclerotic heart disease of native coronary artery without angina pectoris; I11.0 Hypertensive heart disease with heart failure; E03.9 Hypothyroidism, unspecified; D57.1 Sickle-cell disease without crisis; Z86.73 Personal history of transient ischemic attack (TIA), and cerebral infarction without residual deficits
CPT/HCPCS: 70100-TC-FY; 99281-25

== ENCOUNTER 2017-09-20 07:33 | Day surgery (SDC) | payer OTHER ==
[2017-09-20] MEDS ORDERED: FUROSEMIDE 20 MG TABLET (FP) PO SCH (08:45)
[2017-09-20 09:22] LABS: HEMATOCRIT 17.8 % (32.4-45.2); MCH 39.7 pg (25.7-33.7); MCHC 36.9 g/dl (32.0-36.0); MEAN CELL VOLUME 107.6 fl (80-96); MEAN PLT VOLUME 8.8 fl (7.5-11.1); PLATELET COUNT 257 K/MM3 (134-434); RBC 1.65 M/mm3 (3.60-5.2); RDW 25.8 % (11.6-15.6); WHITE BLOOD COUNT 9.2 K/mm3 (4.0-10.0)
[2017-09-20 09:29] LABS: HEMOGLOBIN 6.6 GM/dL (10.7-15.3)
[2017-09-20 09:53] LABS: ALBUMIN 3.6 g/dl (3.4-5.0); ANION GAP 6 (8-16); BILIRUBIN,TOTAL 5.8 mg/dL (0.2-1.0); BLOOD UREA NITROGEN 10 mg/dL (7-18); CALCIUM 8.4 mg/dL (8.5-10.1); CHLORIDE 111 mmol/L (98-107); CO2 25 mmol/L (21-32); CREATININE 0.7 mg/dL (0.55-1.02); GLUCOSE,RANDOM 84 mg/dL (74-106); MAGNESIUM 1.5 mg/dL (1.8-2.4); POTASSIUM 4.2 mmol/L (3.5-5.1); SGOT/AST 61 U/L (15-37); SGPT/ALT 37 U/L (12-78); SODIUM 142 mmol/L (136-145); TOT PROT 7.3 g/dl (6.4-8.2)
[2017-09-20 09:54] LABS: ALK PHOS 138 U/L (45-117); LDH 909 U/L (84-246)
--- NOTE | 2017-09-20 10:20 | HP ---
Satellite [facility] - Chief Complaint History of Present Illness: Sickle cell disease, here for elective PRBCs transfusion. pt seen and examined. 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 (cerebral aneurysm repair) Cardiovascular: Yes: CHF, HTN, Other (Nonischemic dilated cardiomyopathy now with normal LV function) Heme/Onc: Yes: Sickle Cell Disease Endocrine: Yes: Hypothyroidism - Current Medications Current Medications: Home Medications Medication Instructions Recorded Folic Acid - 1 mg PO DAILY 02/19/12 Levothyroxine [Synthroid -] 25 mcg PO DAILY 02/19/12 Ramipril [Altace] 5 mg PO DAILY 04/05/12 Spironolactone [Aldactone -] 25 mg PO DAILY 04/05/12 Hydroxyurea [Hydrea 500Mg Capsule 500 mg PO BID 04/18/13 -] Lansoprazole [Prevacid] 30 mg PO DAILY 08/29/13 Metoprolol Tartrate [Lopressor -] 50 mg PO BID 06/18/15 Aspirin [Aspirin EC] 81 mg PO ASDIR 03/16/17 Clopidogrel Bisulfate [Plavix -] 75 mg PO DAILY 03/16/17 Amoxicillin/Potassium Clav 1 each PO BID #14 tablet 08/21/17 [Augmentin 875-125 Tablet] Satellite Physical Exam - Physical Examination General Appearance: Well Nourished, Well Developed, Alert & Oriented x3 Lung: Clear to auscultation Heart: Regular rate & rhythm Abdomen: No tenderness Extremities: No edema Satellite Impression/Plan - Impression/Plan Impression: for PRBCs. to f/u in office post d/c
[2017-09-20] MEDS ORDERED: MAGNESIUM SULFATE IN WATER 2 GM/50 ML IVPB IVPB ONE (11:15)
[2017-09-20 16:49] LABS: HEMATOCRIT 20.8 % (32.4-45.2); HEMOGLOBIN 7.5 GM/dL (10.7-15.3); MCHC 36.2 g/dl (32.0-36.0); MEAN PLT VOLUME 9.1 fl (7.5-11.1); PLATELET COUNT 270 K/MM3 (134-434); RBC 2.04 M/mm3 (3.60-5.2); RDW 27.6 % (11.6-15.6); WHITE BLOOD COUNT 8.3 K/mm3 (4.0-10.0)
[2017-09-20 17:10] VITALS: TEMP 98.4
[2017-09-20 17:12] VITALS: BP 128/71; PULSE 77
== END 2017-09-20 16:00 | disposition home or self-care (01) ==
LOC: JONCBLOOD 07:33 → J7W 08:12 → JONCBLOOD 16:00
PROVIDERS: ATTEND Internal Medicine Hematology & Oncology
PROC: 30233N1 Transfusion of Nonautologous Red Blood Cells into Peripheral Vein, Percutaneous Approach (ICD-10-PCS; principal; 2017-09-20)
DX: D57.1 Sickle-cell disease without crisis (principal)
CPT/HCPCS: 36415; 36430; 80053; 83615; 83735; 85027; 85044; 86850; 86900; 86901; 86922; P9058

== ENCOUNTER 2017-11-01 08:11 | Day surgery (SDC) | payer OTHER ==
[2017-11-01 09:26] LABS: EOS % 5.5 % (0-4.5); HEMATOCRIT 15.1 % (32.4-45.2); LYMPH % 15.6 % (8-40); MCH 36.3 pg (25.7-33.7); MCHC 34.8 g/dl (32.0-36.0); MEAN CELL VOLUME 104.2 fl (80-96); MEAN PLT VOLUME 8.9 fl (7.5-11.1); MONO % 11.5 % (3.8-10.2); NEUT % 66.4 % (42.8-82.8); PLATELET COUNT 644 K/MM3 (134-434); RBC 1.45 M/mm3 (3.60-5.2); RDW 24.9 % (11.6-15.6); WHITE BLOOD COUNT 10.7 K/mm3 (4.0-10.0)
[2017-11-01 09:31] LABS: HEMOGLOBIN 5.2 GM/dL (10.7-15.3)
[2017-11-01 09:55] LABS: ALBUMIN 3.3 g/dl (3.4-5.0); ALK PHOS 252 U/L (45-117); ANION GAP 10 (8-16); BLOOD UREA NITROGEN 15 mg/dL (7-18); CALCIUM 8.5 mg/dL (8.5-10.1); CHLORIDE 112 mmol/L (98-107); CO2 19 mmol/L (21-32); CREATININE 0.9 mg/dL (0.55-1.02); GLUCOSE,RANDOM 89 mg/dL (74-106); MAGNESIUM 1.6 mg/dL (1.8-2.4); POTASSIUM 3.7 mmol/L (3.5-5.1); SGOT/AST 55 U/L (15-37); SGPT/ALT 44 U/L (12-78); SODIUM 141 mmol/L (136-145); TOT PROT 8.3 g/dl (6.4-8.2)
[2017-11-01 10:45] VITALS: TEMP 97.6
[2017-11-01] MEDS ORDERED: FUROSEMIDE 100 MG/10 ML INJECTABLE VIAL IVPUSH ONE (10:45)
--- NOTE | 2017-11-01 11:34 | HP ---
Satellite [facility] - Chief Complaint History of Present Illness: Here for PRBCs. ROS+fatigue. weakness. feelscold. 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) Cardiovascular: Yes: CHF, HTN, Other (Nonischemic dilated cardiomyopathy now with normal LV function) Heme/Onc: Yes: Sickle Cell Disease Endocrine: Yes: Hypothyroidism - Current Medications Current Medications: Home Medications Medication Instructions Recorded Folic Acid - 1 mg PO DAILY 02/19/12 Levothyroxine [Synthroid -] 25 mcg PO DAILY 02/19/12 Ramipril [Altace] 5 mg PO DAILY 04/05/12 Spironolactone [Aldactone -] 25 mg PO DAILY 04/05/12 Hydroxyurea [Hydrea 500Mg Capsule 500 mg PO BID 04/18/13 -] Lansoprazole [Prevacid] 30 mg PO DAILY 08/29/13 Metoprolol Tartrate [Lopressor -] 50 mg PO BID 06/18/15 Aspirin [Aspirin EC] 81 mg PO ASDIR 03/16/17 Clopidogrel Bisulfate [Plavix -] 75 mg PO DAILY 03/16/17 Amoxicillin/Potassium Clav 1 each PO BID #14 tablet 08/21/17 [Augmentin 875-125 Tablet] Satellite Physical Exam - Physical Examination Vital Signs: Vital Signs Period Temp Pulse Resp BP Sys/Avila Pulse Ox Last 24 Hr 97.6 F 69 16 113/57 General Appearance: Well Developed, Alert & Oriented x3 Lung: Clear to auscultation Heart: Regular rate & rhythm Abdomen: Soft Extremities: No edema Neurological: Alert, Oriented Satellite Impression/Plan - Impression/Plan Impression: CBC reviewed today. for 2U PRBCS. lasix in between. discussed with pt. close monitoring of vitals
[2017-11-01] MEDS ORDERED: FUROSEMIDE 40 MG/4 ML INJECTABLE VIAL ONE (14:44)
[2017-11-01 18:21] VITALS: BP 122/68; PULSE 80
== END 2017-11-01 18:22 | disposition home or self-care (01) ==
LOC: JONCBLOOD 08:11 → J7W 08:13 → JONCBLOOD 18:22
PROVIDERS: ATTEND Internal Medicine Hematology & Oncology
PROC: 30233N1 Transfusion of Nonautologous Red Blood Cells into Peripheral Vein, Percutaneous Approach (ICD-10-PCS; principal; 2017-11-01)
DX: D57.1 Sickle-cell disease without crisis (principal); I10 Essential (primary) hypertension; I50.9 Heart failure, unspecified; E03.9 Hypothyroidism, unspecified
CPT/HCPCS: 36415; 36430; 80053; 83735; 85025; 86850; 86900; 86901; 86922; P9038; P9058

== ENCOUNTER 2018-01-10 07:32 | Day surgery (SDC) | payer OTHER ==
[2018-01-10 17:29] VITALS: BP 134/76; PULSE 77; TEMP 98.6
[2018-01-10 17:30] LABS: HEMATOCRIT 19.8 % (32.4-45.2); HEMOGLOBIN 7.1 GM/dL (10.7-15.3); MCH 35.2 pg (25.7-33.7); MEAN CELL VOLUME 97.8 fl (80-96); MEAN PLT VOLUME 8.5 fl (7.5-11.1); PLATELET COUNT 443 K/MM3 (134-434); RBC 2.03 M/mm3 (3.60-5.2); WHITE BLOOD COUNT 12.7 K/mm3 (4.0-10.0)
== END 2018-01-10 17:00 | disposition home or self-care (01) ==
LOC: JONCBLOOD 07:32 → J7W 08:03 → JONCBLOOD 17:00
PROVIDERS: ATTEND Internal Medicine Hematology & Oncology
PROC: 30233N1 Transfusion of Nonautologous Red Blood Cells into Peripheral Vein, Percutaneous Approach (ICD-10-PCS; principal; 2018-01-10)
DX: D57.1 Sickle-cell disease without crisis (principal)
CPT/HCPCS: 36415; 36430; 85027; 86850; 86900; 86901; 86922; P9038; P9058

== ENCOUNTER 2018-03-07 07:28 | Day surgery (SDC) | payer OTHER ==
[2018-03-07 08:47] LABS: BASO % 0.7 % (0-2.0); EOS % 6.8 % (0-4.5); HEMATOCRIT 17.3 % (32.4-45.2); LYMPH % 8.5 % (8-40); MCH 32.4 pg (25.7-33.7); MEAN CELL VOLUME 95.3 fl (80-96); MEAN PLT VOLUME 8.4 fl (7.5-11.1); PLATELET COUNT 574 K/MM3 (134-434); RBC 1.81 M/mm3 (3.60-5.2); RDW 21.9 % (11.6-15.6); WHITE BLOOD COUNT 17.9 K/mm3 (4.0-10.0)
[2018-03-07 08:54] LABS: HEMOGLOBIN 5.9 GM/dL (10.7-15.3)
[2018-03-07 09:12] LABS: ALBUMIN 3.1 g/dl (3.4-5.0); ALK PHOS 224 U/L (45-117); ANION GAP 6 MMOL/L (8-16); BILIRUBIN,TOTAL 2.6 mg/dL (0.2-1); BLOOD UREA NITROGEN 17 mg/dL (7-18); CALCIUM 8.7 mg/dL (8.5-10.1); CHLORIDE 107 mmol/L (98-107); CO2 24 mmol/L (21-32); CREATININE 0.9 mg/dL (0.55-1.3); GLUCOSE,RANDOM 98 mg/dL (74-106); POTASSIUM 4.1 mmol/L (3.5-5.1); SGOT/AST 55 U/L (15-37); SGPT/ALT 36 U/L (13-61); SODIUM 136 mmol/L (136-145); TOT PROT 9.6 g/dl (6.4-8.2)
[2018-03-07 11:52] LABS: ANISOCYTOSIS 1+; MACROCYTOSIS 1+; TARGET CELLS 1+
[2018-03-07] MEDS ORDERED: FUROSEMIDE 40 MG/4 ML INJECTABLE VIAL IVPUSH SCH (12:15)
[2018-03-07 15:23] VITALS: TEMP 97.7
[2018-03-07 18:23] LABS: HEMOGLOBIN 8.6 GM/dL (10.7-15.3); MCH 31.7 pg (25.7-33.7); MCHC 34.2 g/dl (32.0-36.0); MEAN CELL VOLUME 92.8 fl (80-96); PLATELET COUNT 549 K/MM3 (134-434); RDW 17.8 % (11.6-15.6); WHITE BLOOD COUNT 14.7 K/mm3 (4.0-10.0)
[2018-03-07 18:50] VITALS: BP 151/79; PULSE 72
== END 2018-03-07 18:52 | disposition home or self-care (01) ==
LOC: JONCBLOOD 07:28 → J7W 07:53 → JONCBLOOD 18:52
PROVIDERS: ATTEND Internal Medicine Hematology & Oncology
PROC: 30233N1 Transfusion of Nonautologous Red Blood Cells into Peripheral Vein, Percutaneous Approach (ICD-10-PCS; principal; 2018-03-07)
DX: D57.1 Sickle-cell disease without crisis (principal)
CPT/HCPCS: 36415; 36430; 80053; 85025; 85027; 86850; 86900; 86901; 86922; P9038; P9058

== ENCOUNTER 2018-04-20 08:55 | Day surgery (SDC) | payer OTHER ==
[2018-04-20] MEDS ORDERED: FUROSEMIDE 20 MG TABLET (FP) PO ONE ×2 (10:00→16:15)
[2018-04-20 10:04] LABS: BASO % 0.9 % (0-2.0); EOS % 5.7 % (0-4.5); HEMATOCRIT 16.7 % (32.4-45.2); LYMPH % 7.7 % (8-40); MCH 32.7 pg (25.7-33.7); MCHC 34.8 g/dl (32.0-36.0); MEAN PLT VOLUME 8.5 fl (7.5-11.1); MONO % 8.6 % (3.8-10.2); NEUT % 77.1 % (42.8-82.8); PLATELET COUNT 650 K/MM3 (134-434); RBC 1.77 M/mm3 (3.60-5.2); RDW 19.7 % (11.6-15.6)
[2018-04-20 10:29] LABS: HEMOGLOBIN 5.8 GM/dL (10.7-15.3)
[2018-04-20 10:48] LABS: ALBUMIN 2.7 g/dl (3.4-5.0); ALK PHOS 214 U/L (45-117); ANION GAP 8 MMOL/L (8-16); BLOOD UREA NITROGEN 19 mg/dL (7-18); CALCIUM 8.4 mg/dL (8.5-10.1); CHLORIDE 105 mmol/L (98-107); CO2 20 mmol/L (21-32); CREATININE 0.9 mg/dL (0.55-1.3); GLUCOSE,RANDOM 80 mg/dL (74-106); LDH 303 U/L (84-246); POTASSIUM 4.8 mmol/L (3.5-5.1); SGOT/AST 32 U/L (15-37); SGPT/ALT 23 U/L (13-61); SODIUM 133 mmol/L (136-145); TOT PROT 9.7 g/dl (6.4-8.2); URIC ACID 7.1 mg/dL (2.6-7.2)
[2018-04-20 16:20] VITALS: BP 118/70; PULSE 73; TEMP 98.5
[2018-04-20 17:11] LABS: EOS % 5.9 % (0-4.5); HEMATOCRIT 19.5 % (32.4-45.2); LYMPH % 9.9 % (8-40); MCH 33.2 pg (25.7-33.7); MCHC 35.5 g/dl (32.0-36.0); MEAN CELL VOLUME 93.6 fl (80-96); MEAN PLT VOLUME 8.5 fl (7.5-11.1); MONO % 9.5 % (3.8-10.2); NEUT % 73.7 % (42.8-82.8); PLATELET COUNT 630 K/MM3 (134-434); RBC 2.08 M/mm3 (3.60-5.2); RDW 17.6 % (11.6-15.6); WHITE BLOOD COUNT 17.2 K/mm3 (4.0-10.0)
[2018-04-20 17:18] LABS: HEMOGLOBIN 6.9 GM/dL (10.7-15.3)
== END 2018-04-20 16:26 | disposition home or self-care (01) ==
LOC: J7W 08:55 → JONCBLOOD 08:55
PROVIDERS: ATTEND Internal Medicine Hematology & Oncology
PROC: 30233N1 Transfusion of Nonautologous Red Blood Cells into Peripheral Vein, Percutaneous Approach (ICD-10-PCS; principal; 2018-04-20)
DX: D57.1 Sickle-cell disease without crisis (principal)
CPT/HCPCS: 36415; 36430; 80053; 83615; 84550; 85025; 86850; 86900; 86901; 86922; P9038; P9058

== ENCOUNTER 2018-05-29 08:51 | Emergency (ER) | payer OTHER ==
[2018-05-29 09:02] VITALS: BP 150/70; PULSE 73; TEMP 98.4; BMI 22.6
[2018-05-29] MEDS ORDERED: KETOROLAC TROMETHAMINE 60 MG/2 ML VIAL IM ONE (09:33)
[2018-05-29] MEDS ORDERED: KETOROLAC TROMETHAMINE 60 MG/2 ML VIAL ONE (09:36)
--- NOTE | 2018-05-29 09:42 | PDOC ---
History of Present Illness - General Chief Complaint: Back Pain Stated Complaint: BACK PAIN Time Seen by Provider: 05/29/18 09:24 History Source: Patient Exam Limitations: No Limitations - History of Present Illness Initial Comments: 05/29/18 09:47 58 yr female with low back pain after helping lift her elderly mother off the floor last night. Pt states she pulled her low back and now "feels stuck" . pt denies numbness or tingling , neg urine or bowel dysfunction. Past History - Past Medical History Allergies/Adverse Reactions: Allergies Allergy/AdvReac Type Severity Reaction Status Date / Time codeine [Codeine] Allergy Verified 05/29/18 09:02 Home Medications: Ambulatory Orders Folic Acid - 1 mg PO DAILY 02/19/12 Levothyroxine [Synthroid -] 25 mcg PO DAILY 02/19/12 Ramipril [Altace] 5 mg PO DAILY 04/05/12 Spironolactone [Aldactone -] 25 mg PO DAILY 04/05/12 Hydroxyurea [Hydrea 500Mg Capsule -] 500 mg PO BID 04/18/13 Lansoprazole [Prevacid] 30 mg PO DAILY 08/29/13 Metoprolol Tartrate [Lopressor -] 50 mg PO BID 06/18/15 Aspirin [Aspirin EC] 81 mg PO ASDIR 03/16/17 Diazepam [Valium] 5 mg PO Q8H PRN #12 tablet MDD 15mg 05/29/18 Oxycodone HCl/Acetaminophen [Percocet 5-325 mg Tablet] 1 tab PO Q6H PRN #12 tablet MDD 4 tabs 05/29/18 Anemia: Yes (sickle cell) Asthma: No Cancer: No Cardiac Disorders: Yes (CARDIOMYOPATHY) CVA: No COPD: No CHF: Yes Dementia: No Diabetes: No GI Disorders: No Disorders: No HTN: Yes Hypercholesterolemia: No Liver Disease: No Seizures: No Thyroid Disease: Yes (HYPOTHYROIDISM) - Surgical History Abdominal Surgery: No Appendectomy: No Cardiac Surgery: No Cholecystectomy: No Lung Surgery: No Neurologic Surgery: No Orthopedic Surgery: Yes (fracture of left ankle) - Suicide/Smoking/Psychosocial Hx Smoking Status: No Smoking History: Never smoked Have you smoked in the past 12 months: No Number of Cigarettes Smoked Daily: 0 Information on smoking cessation initiated: No Hx Alcohol Use: No Drug/Substance Use Hx: No Substance Use Type: None Hx Substance Use Treatment: No *Physical Exam - Vital Signs Last Vital Signs Temp Pulse Resp BP Pulse Ox 98.4 F 73 18 150/70 98 05/29/18 08:59 05/29/18 08:59 05/29/18 08:59 05/29/18 08:59 05/29/18 08:59 - Physical Exam General Appearance: Yes: Nourished, Appropriately Dressed HEENT: positive: EOMI, WIN Neck: positive: Supple. negative: Tender Respiratory/Chest: positive: Lungs Clear, Normal Breath Sounds Cardiovascular: positive: Regular Rhythm, Regular Rate Musculoskeletal: positive: Normal Inspection, Muscle Spasm, Other (lumbar paraspinal soft tissue ttp ). negative: CVA Tenderness, CVA Tenderness (R), CVA Tenderness (L), Decreased Range of Motion, Vertebral Tenderness Extremity: positive: Normal Capillary Refill, Normal Inspection, Other (left side at 45 degrees ) Integumentary: positive: Normal Color, Dry, Warm. negative: Rash Neurologic: positive: Fully Oriented, Alert, Normal Mood/Affect, Normal Response , Motor Strength 5/5. negative: Numbness, Sensory Deficit, Babinski Moderate Sedation - Procedure Monitoring Vital Signs: Procedure Monitoring Vital Signs Temperature 98.4 F 05/29/18 08:59 Pulse Rate 73 05/29/18 08:59 Respiratory Rate 18 05/29/18 08:59 Blood Pressure 150/70 05/29/18 08:59 O2 Sat by Pulse Oximetry (%) 98 05/29/18 08:59 Medical Decision Making - Medical Decision Making 05/29/18 14:00 cc: low back pain for 2 days after lifting her mother up from the floor felt a pop to low back pt states she was stuck in one position non radiating no urine or bowel dysfunction neg abd pain neg saddle anesthesia, neg numbness or tingling pt ambulating with limp will give toradol now dc with percocet and valium, pt states she takes ASA daily is not on plavix at this time. dc inst verbally discussed *DC/Admit/Observation/Transfer Diagnosis at time of Disposition: Muscle spasm of back - Discharge Dispostion Disposition: HOME Condition at time of disposition: Good - Prescriptions Prescriptions: Diazepam [Valium] 5 mg PO Q8H PRN #12 tablet MDD 15mg PRN Reason: Muscle Spasms Oxycodone HCl/Acetaminophen [Percocet 5-325 mg Tablet] 1 tab PO Q6H PRN #12 tablet MDD 4 tabs PRN Reason: Back Pain - Referrals Referrals: Dickson Au MD [Primary Care Provider] - - Patient Instructions Printed Discharge Instructions: DI for Back Spasm Additional Instructions: follow with your orthopedist call today to make appointment take the medications as prescribed DO NOT TAKE THE PERCOCET AND VALIUM TOGETHER apply heating pad to lower back every 3-4hrs for 20 minutes - Post Discharge Activity Forms/Work/School Notes: Back to Work
== END 2018-05-29 09:52 | disposition home or self-care (01) ==
LOC: JERFT 08:51
PROC: 3E0233Z Introduction of Anti-inflammatory into Muscle, Percutaneous Approach (ICD-10-PCS; principal; 2018-05-29)
DX: M62.830 Muscle spasm of back (principal)
CPT/HCPCS: 99281-25

== ENCOUNTER 2018-06-22 09:22 | Day surgery (SDC) | payer OTHER ==
[2018-06-22] MEDS ORDERED: FUROSEMIDE 40 MG/4 ML INJECTABLE VIAL IVPUSH SCH (10:00)
[2018-06-22 10:35] LABS: BASO % 0.9 % (0-2.0); EOS % 11.3 % (0-4.5); HEMATOCRIT 17.8 % (32.4-45.2); LYMPH % 13.3 % (8-40); MCH 37.7 pg (25.7-33.7); MCHC 34.2 g/dl (32.0-36.0); MEAN CELL VOLUME 110.3 fl (80-96); MEAN PLT VOLUME 8.2 fl (7.5-11.1); MONO % 8.2 % (3.8-10.2); NEUT % 66.3 % (42.8-82.8); PLATELET COUNT 389 K/MM3 (134-434); RBC 1.62 M/mm3 (3.60-5.2); RDW 28.5 % (11.6-15.6); RETICULOCYTES 13.08 % (0.5-1.5)
[2018-06-22 10:40] LABS: HEMOGLOBIN 6.1 GM/dL (10.7-15.3)
[2018-06-22 11:09] LABS: ALK PHOS 171 U/L (45-117); ANION GAP 6 MMOL/L (8-16); BILIRUBIN,TOTAL 3.7 mg/dL (0.2-1); BLOOD UREA NITROGEN 19 mg/dL (7-18); CALCIUM 8.7 mg/dL (8.5-10.1); CHLORIDE 111 mmol/L (98-107); CO2 23 mmol/L (21-32); CREATININE 0.9 mg/dL (0.55-1.3); GLUCOSE,RANDOM 83 mg/dL (74-106); POTASSIUM 4.6 mmol/L (3.5-5.1); SGOT/AST 60 U/L (15-37); SGPT/ALT 23 U/L (13-61); SODIUM 140 mmol/L (136-145); TOT PROT 8.8 g/dl (6.4-8.2)
[2018-06-22 11:34] LABS: ANISOCYTOSIS 2+; MACROCYTOSIS 1+; PLATELET ESTIMATE NORMAL; ROULEAU 1+; SICKELED CELLS 3+; WHITE BLOOD COUNT 14.2 K/mm3 (4.0-10.0)
[2018-06-22 11:35] LABS: CORRECTED WBC 12.57 K/mm3
[2018-06-22 18:06] VITALS: BP 132/74; PULSE 81; TEMP 98.5
== END 2018-06-22 17:40 | disposition home or self-care (01) ==
LOC: JONCBLOOD 09:22 → J7W 09:29 → JONCBLOOD 17:40
PROVIDERS: ATTEND Internal Medicine Hematology & Oncology
PROC: 30233N1 Transfusion of Nonautologous Red Blood Cells into Peripheral Vein, Percutaneous Approach (ICD-10-PCS; principal; 2018-06-22)
DX: D57.1 Sickle-cell disease without crisis (principal)
CPT/HCPCS: 36415; 36430; 36511; 80053; 85025; 85044; 86850; 86900; 86901; 86922; P9038; P9058

== ENCOUNTER 2018-08-03 08:26 | Day surgery (SDC) | payer OTHER ==
[2018-08-03 12:54] VITALS: BP 133/64; PULSE 75
[2018-08-03 14:54] VITALS: TEMP 98.2
[2018-08-03 15:15] LABS: BASO % 1.3 % (0-2.0); EOS % 7.8 % (0-4.5); HEMATOCRIT 18.1 % (32.4-45.2); LYMPH % 14.5 % (8-40); MCHC 36.8 g/dl (32.0-36.0); MEAN PLT VOLUME 8.7 fl (7.5-11.1); MONO % 10.1 % (3.8-10.2); NEUT % 66.3 % (42.8-82.8); PLATELET COUNT 377 K/MM3 (134-434); RBC 1.62 M/mm3 (3.60-5.2); RDW 23.9 % (11.6-15.6); WHITE BLOOD COUNT 12.7 K/mm3 (4.0-10.0)
[2018-08-03 15:19] LABS: MCH 41.2 pg (25.7-33.7)
[2018-08-03 15:22] LABS: HEMOGLOBIN 6.7 GM/dL (10.7-15.3)
[2018-08-03] MEDS ORDERED: oxyCODONE HCL 5 MG TABLET PO PRN (15:24)
[2018-08-03] MEDS ORDERED: FUROSEMIDE 20 MG TABLET (FP) PO ONE (15:30)
[2018-08-03 17:09] LABS: ANISOCYTOSIS 3+; OVALOCYTE 2+; SICKELED CELLS 2+; TARGET CELLS 1+
[2018-08-03 17:10] LABS: PLATELET ESTIMATE ADEQUATE
[2018-08-03 17:18] LABS: BASO % 1.4 % (0-2.0); EOS % 9.8 % (0-4.5); HEMATOCRIT 22.5 % (32.4-45.2); HEMOGLOBIN 8.3 GM/dL (10.7-15.3); LYMPH % 18.5 % (8-40); MCH 39.2 pg (25.7-33.7); MCHC 36.8 g/dl (32.0-36.0); MEAN CELL VOLUME 106.6 fl (80-96); MEAN PLT VOLUME 8.6 fl (7.5-11.1); MONO % 13.1 % (3.8-10.2); NEUT % 57.2 % (42.8-82.8); PLATELET COUNT 397 K/MM3 (134-434); RBC 2.11 M/mm3 (3.60-5.2); WHITE BLOOD COUNT 11.6 K/mm3 (4.0-10.0)
[2018-08-03 17:50] LABS: ALK PHOS 210 U/L (45-117); ANION GAP 4 MMOL/L (8-16); BILIRUBIN,TOTAL 3.8 mg/dL (0.2-1); BLOOD UREA NITROGEN 20 mg/dL (7-18); CHLORIDE 108 mmol/L (98-107); CO2 26 mmol/L (21-32); CREATININE 0.9 mg/dL (0.55-1.3); GLUCOSE,RANDOM 96 mg/dL (74-106); POTASSIUM 4.6 mmol/L (3.5-5.1); SGOT/AST 66 U/L (15-37); SGPT/ALT 28 U/L (13-61); SODIUM 138 mmol/L (136-145); TOT PROT 8.5 g/dl (6.4-8.2)
== END 2018-08-03 17:00 | disposition home or self-care (01) ==
LOC: JONCBLOOD 08:26 → J7W 08:27 → JONCBLOOD 17:00
PROVIDERS: ATTEND Internal Medicine Hematology & Oncology
PROC: 30233N1 Transfusion of Nonautologous Red Blood Cells into Peripheral Vein, Percutaneous Approach (ICD-10-PCS; principal; 2018-08-03)
DX: D57.1 Sickle-cell disease without crisis (principal)
CPT/HCPCS: 36415; 36430; 36511; 80053; 85025; 86850; 86900; 86901; 86922; P9038; P9058

== ENCOUNTER 2018-09-07 08:35 | Day surgery (SDC) | payer OTHER ==
[2018-09-07 09:48] LABS: BASO % 0.6 % (0-2.0); EOS % 9.6 % (0-4.5); HEMATOCRIT 17.1 % (32.4-45.2); LYMPH % 13.9 % (8-40); MCH 38.7 pg (25.7-33.7); MCHC 35.6 g/dl (32.0-36.0); MEAN CELL VOLUME 108.6 fl (80-96); MEAN PLT VOLUME 9.2 fl (7.5-11.1); MONO % 8.9 % (3.8-10.2); PLATELET COUNT 444 K/MM3 (134-434); RBC 1.58 M/mm3 (3.60-5.2); RDW 27.2 % (11.6-15.6)
[2018-09-07 09:59] LABS: HEMOGLOBIN 6.1 GM/dL (10.7-15.3)
[2018-09-07 10:07] LABS: ALK PHOS 165 U/L (45-117); ANION GAP 7 MMOL/L (8-16); BILIRUBIN,TOTAL 3.1 mg/dL (0.2-1); BLOOD UREA NITROGEN 15 mg/dL (7-18); CALCIUM 8.6 mg/dL (8.5-10.1); CHLORIDE 111 mmol/L (98-107); CO2 21 mmol/L (21-32); CREATININE 0.9 mg/dL (0.55-1.3); GLUCOSE,RANDOM 111 mg/dL (74-106); MAGNESIUM 2.1 mg/dL (1.8-2.4); POTASSIUM 4.3 mmol/L (3.5-5.1); SGOT/AST 42 U/L (15-37); SGPT/ALT 22 U/L (13-61); SODIUM 139 mmol/L (136-145); TOT PROT 8.4 g/dl (6.4-8.2)
[2018-09-07 13:13] LABS: ANISOCYTOSIS 2+; HOWELL-JOLLY BODIES 2+; MACROCYTOSIS 1+; PLATELET ESTIMATE NORMAL; TARGET CELLS 2+; TEAR DROP CELLS 1+
[2018-09-07 13:44] LABS: CORRECTED WBC 13.81 K/mm3; WHITE BLOOD COUNT 18.5 K/mm3 (4.0-10.0)
[2018-09-07 15:39] VITALS: BP 137/76; PULSE 72; TEMP 98.2
[2018-09-07 16:57] LABS: BASO % 0.9 % (0-2.0); EOS % 9.5 % (0-4.5); HEMATOCRIT 20.6 % (32.4-45.2); HEMOGLOBIN 7.1 GM/dL (10.7-15.3); LYMPH % 15.7 % (8-40); MCH 35.4 pg (25.7-33.7); MCHC 34.4 g/dl (32.0-36.0); MEAN PLT VOLUME 8.9 fl (7.5-11.1); MONO % 10.7 % (3.8-10.2); NEUT % 63.2 % (42.8-82.8); PLATELET COUNT 459 K/MM3 (134-434); RDW 27.1 % (11.6-15.6)
[2018-09-07 19:14] LABS: ANISOCYTOSIS 2+; MACROCYTOSIS 1+; PLATELET ESTIMATE NORMAL; SICKELED CELLS 1+; TARGET CELLS 1+
[2018-09-07 19:41] LABS: WHITE BLOOD COUNT 17.4 K/mm3 (4.0-10.0)
[2018-09-07 19:42] LABS: CORRECTED WBC 11.52 K/mm3
== END 2018-09-07 16:02 | disposition home or self-care (01) ==
LOC: JONCBLOOD 08:35 → J7W 08:36 → JONCBLOOD 16:02
PROVIDERS: ATTEND Internal Medicine Hematology & Oncology
PROC: 30233N1 Transfusion of Nonautologous Red Blood Cells into Peripheral Vein, Percutaneous Approach (ICD-10-PCS; principal; 2018-09-07)
DX: D57.1 Sickle-cell disease without crisis (principal)
CPT/HCPCS: 36415; 36430; 36511; 80053; 83735; 85025; 86850; 86900; 86901; 86922; P9038; P9058

== ENCOUNTER 2018-10-27 08:26 | Emergency (ER) | payer OTHER ==
[2018-10-27 08:32] VITALS: BP 149/66; PULSE 82; TEMP 97.9; BMI 22.4
--- NOTE | 2018-10-27 08:40 | PDOC ---
History of Present Illness - General Chief Complaint: Back Pain Stated Complaint: BACK PAIN Time Seen by Provider: 10/27/18 08:38 History Source: Patient Exam Limitations: No Limitations Past History - Travel Traveled outside of the country in the last 30 days: No Close contact w/someone who was outside of country & ill: No - Past Medical History Allergies/Adverse Reactions: Allergies Allergy/AdvReac Type Severity Reaction Status Date / Time codeine [Codeine] Allergy Verified 10/27/18 08:32 Home Medications: Ambulatory Orders Folic Acid - 1 mg PO DAILY 02/19/12 Levothyroxine [Synthroid -] 25 mcg PO DAILY 02/19/12 Ramipril [Altace] 5 mg PO DAILY 04/05/12 Spironolactone [Aldactone -] 25 mg PO DAILY 04/05/12 Hydroxyurea [Hydrea 500Mg Capsule -] 500 mg PO BID 04/18/13 Lansoprazole [Prevacid] 30 mg PO DAILY 08/29/13 Metoprolol Tartrate [Lopressor -] 50 mg PO BID 06/18/15 Aspirin [Aspirin EC] 81 mg PO ASDIR 03/16/17 Diazepam [Valium] 5 mg PO Q8H PRN #12 tablet MDD 15mg 05/29/18 Oxycodone HCl/Acetaminophen [Percocet 5-325 mg Tablet] 1 tab PO Q6H PRN #12 tablet MDD 4 tabs 05/29/18 Cyclobenzaprine HCl [Flexeril -] 10 mg PO HS #10 tablet 10/27/18 Ibuprofen 600 mg PO Q6H #30 tablet 10/27/18 Oxycodone HCl/Acetaminophen [Percocet 5-325 mg Tablet] 1 tab PO Q6H #10 tablet MDD 4 10/27/18 Anemia: Yes (sickle cell) Asthma: No Cancer: No Cardiac Disorders: Yes (CARDIOMYOPATHY) CVA: No COPD: No CHF: Yes Dementia: No Diabetes: No GI Disorders: No Disorders: No HTN: Yes Hypercholesterolemia: No Liver Disease: No Seizures: No Thyroid Disease: Yes (HYPOTHYROIDISM) Other medical history: L 5 compression fx - Surgical History Abdominal Surgery: No Appendectomy: No Cardiac Surgery: No Cholecystectomy: No Lung Surgery: No Neurologic Surgery: No Orthopedic Surgery: Yes (fracture of left ankle) - Suicide/Smoking/Psychosocial Hx Smoking Status: No Smoking History: Never smoked Have you smoked in the past 12 months: No Number of Cigarettes Smoked Daily: 0 Hx Alcohol Use: No Drug/Substance Use Hx: No Substance Use Type: None Hx Substance Use Treatment: No Review of Systems - Review of Systems Able to Perform ROS?: Yes Comments:: 10/27/18 08:39 CONSTITUTIONAL: Absent: fever, chills, diaphoresis, generalized weakness, malaise, loss of appetite GASTROINTESTINAL: Absent: abdominal pain, abdominal distension, nausea, vomiting, diarrhea, constipation, melena, hematochezia GENITOURINARY: Absent: dysuria, frequency, urgency, hesitancy, hematuria, flank pain, genital pain MUSCULOSKELETAL: Present: upper back pain Absent: arthralgia, joint swelling SKIN: Absent: rash, itching, pallor NEUROLOGIC: Absent: headache, focal weakness or paresthesias, dizziness, unsteady gait, seizure, mental status changes, bladder or bowel incontinence PSYCHIATRIC: Absent: anxiety, depression, suicidal or homicidal ideation, hallucinations. Is the patient limited Slovak proficient: No *Physical Exam - Vital Signs Last Vital Signs Temp Pulse Resp BP Pulse Ox 97.9 F 82 18 149/66 99 10/27/18 08:29 10/27/18 08:29 10/27/18 08:29 10/27/18 08:29 10/27/18 08:29 - Physical Exam Comments: 10/27/18 08:40 GENERAL: Well developed, well nourished. Awake and alert. No acute distress. NECK: Supple. Full ROM. No JVD. Carotid pulses 2+ and symmetric, without bruits. No thyromegaly. No lymphadenopathy. PULMONARY: No evidence of respiratory distress. Lungs clear to auscultation bilaterally. No wheezing, rales or rhonchi. MUSCULOSKELETAL TTP of the paraspinous muscles Normal range of motion at all joints. No bony deformities or tenderness. No CVA tenderness. EXTREMITIES: No cyanosis. No clubbing. No edema. No calf tenderness. SKIN: Warm and dry. Normal capillary refill. No rashes. No jaundice. NEUROLOGICAL: Alert, awake, appropriate. Cranial nerves 2-12 intact. No deficits to light touch and temperature in face, upper extremities and lower extremities. No motor deficits in the in face, upper extremities and lower extremities. Normoreflexic in the upper and lower extremities. Normal speech. Toes are down- going bilaterally. Gait is normal without ataxia. Medical Decision Making - Medical Decision Making 10/27/18 08:40 -Pt with TTP of the L paraspinous muscles, L5-S1, with palpable knot consistent with muscle spasm. (+/-) straight leg raise. -No trauma, or fever. No saddle anesthesia or bladder/bowel incontinence. No CVA tenderness. -Pt is neurologically intact on exam with no focal findings. -Toradol given with relief of symptoms -DC home. Pt to f/u with her PCP. Ortho referral given. -I discussed the physical exam findings, ancillary test results and final diagnoses with the patient. I answered all of the patient's questions. The patient was satisfied with the care received and felt comfortable with the discharge plan and treatment plan. The Patient agrees to follow up with the primary care physician/specialist within 24-72 hours. Return precautions were given. *DC/Admit/Observation/Transfer Diagnosis at time of Disposition: Muscle spasm of back - Discharge Dispostion Disposition: HOME Condition at time of disposition: Stable Decision to Admit order: No - Prescriptions Prescriptions: Cyclobenzaprine HCl [Flexeril -] 10 mg PO HS #10 tablet Ibuprofen 600 mg PO Q6H #30 tablet Oxycodone HCl/Acetaminophen [Percocet 5-325 mg Tablet] 1 tab PO Q6H #10 tablet MDD 4 - Referrals Referrals: Hans Delacruz MD, FA[facility] [Staff Physician] - - Patient Instructions Printed Discharge Instructions: DI for Thoracic Back Pain Additional Instructions: You were evaluated for your mid back pain today. It is most likely due to a muscle spasm Please take the Motrin as directed Take the percocet as needed for break through pain as directed. Do not drink or drive after taking this medication as it may make you drowsy Take the Flexeril every 8 hours the first day. Then take the medication at night only. Do not drink or drive after taking this medication as it may make you drowsy. You may apply warm compresses to the area. Please follow up with orthopedics if your symptoms do not improve this week; a referral has been provided to you Return to the ER for worsening pain despite treatment, numbness/weakness down the extremities, changes in the way you walk, numbness/tingling to the groin, if you have bladder/bowel incontinence, or if you have any changes in your symptoms. - Post Discharge Activity
[2018-10-27] MEDS ORDERED: CYCLOBENZAPRINE HCL 10 MG TABLET (FP) PO ONE (08:52)
[2018-10-27] MEDS ORDERED: KETOROLAC TROMETHAMINE 30 MG/1 ML VIAL IM ONE (08:52)
[2018-10-27] MEDS ORDERED: LIDOCAINE 5% TOPICAL PATCH TP ONE (08:52)
[2018-10-27] MEDS ORDERED: KETOROLAC TROMETHAMINE 30 MG/1 ML VIAL ONE (08:55)
[2018-10-27] MEDS ORDERED: LIDOCAINE 5% TOPICAL PATCH ONE (08:55)
[2018-10-27] MEDS ORDERED: LIDOCAINE PATCH REMOVAL MC SCH (22:00)
== END 2018-10-27 09:08 | disposition home or self-care (01) ==
LOC: JERFT 08:26
DX: M62.830 Muscle spasm of back (principal); I11.0 Hypertensive heart disease with heart failure; I50.9 Heart failure, unspecified; I42.8 Other cardiomyopathies; E03.9 Hypothyroidism, unspecified
CPT/HCPCS: 99281-25

== ENCOUNTER 2018-11-02 08:02 | Day surgery (SDC) | payer OTHER | END 2018-11-02 17:12 | disposition home or self-care (01) | LOC: JONCBLOOD 08:02 → J7W 08:27 → JONCBLOOD 17:12 ==

== ENCOUNTER 2018-12-21 08:11 | Day surgery (SDC) | payer OTHER ==
[2018-12-21] MEDS ORDERED: FUROSEMIDE 20 MG TABLET (FP) PO ONE (15:00)
[2018-12-21 16:15] LABS: BASO % 0.5 % (0-2.0); EOS % 2.7 % (0-4.5); HEMATOCRIT 21.8 % (32.4-45.2); HEMOGLOBIN 7.7 GM/dL (10.7-15.3); LYMPH % 3.6 % (8-40); MCH 36.8 pg (25.7-33.7); MCHC 35.5 g/dl (32.0-36.0); MEAN CELL VOLUME 103.4 fl (80-96); MEAN PLT VOLUME 8.3 fl (7.5-11.1); MONO % 0.9 % (3.8-10.2); NEUT % 92.3 % (42.8-82.8); PLATELET COUNT 324 K/MM3 (134-434); RDW 23.1 % (11.6-15.6); WHITE BLOOD COUNT 16.9 K/mm3 (4.0-10.0)
[2018-12-21 17:33] LABS: ANISOCYTOSIS 3+; MACROCYTOSIS 2+; SICKELED CELLS 2+; TARGET CELLS 1+
[2018-12-21 18:13] VITALS: TEMP 98
[2018-12-21 18:14] VITALS: BP 127/86; PULSE 66
== END 2018-12-21 15:30 | disposition home or self-care (01) ==
LOC: JONCBLOOD 08:11 → J7W 08:13 → JONCBLOOD 15:30
PROVIDERS: ATTEND Internal Medicine Hematology & Oncology
PROC: 30233N1 Transfusion of Nonautologous Red Blood Cells into Peripheral Vein, Percutaneous Approach (ICD-10-PCS; principal; 2018-12-21)
DX: D57.1 Sickle-cell disease without crisis (principal)
CPT/HCPCS: 36415; 36430; 36511; 85025; 86850; 86900; 86901; 86922; P9038; P9058

== ENCOUNTER 2019-02-22 07:51 | Day surgery (SDC) | payer OTHER ==
[2019-02-22 12:28] LABS: BASO % 0.9 % (0-2.0); EOS % 10.3 % (0-4.5); HEMATOCRIT 15.9 % (32.4-45.2); LYMPH % 16.5 % (8-40); MCH 39.8 pg (25.7-33.7); MCHC 36.5 g/dl (32.0-36.0); MEAN CELL VOLUME 109.1 fl (80-96); MEAN PLT VOLUME 9.2 fl (7.5-11.1); MONO % 8.9 % (3.8-10.2); NEUT % 63.4 % (42.8-82.8); PLATELET COUNT 263 K/MM3 (134-434); RBC 1.46 M/mm3 (3.60-5.2); RDW 25.8 % (11.6-15.6); RETICULOCYTES 9.03 % (0.5-1.5)
[2019-02-22 12:42] LABS: HEMOGLOBIN 5.8 GM/dL (10.7-15.3)
[2019-02-22 13:39] LABS: ANISOCYTOSIS 2+; MACROCYTOSIS 1+; OVALOCYTE 1+; PLATELET ESTIMATE NORMAL; SICKELED CELLS 2+
[2019-02-22 16:56] VITALS: BP 136/88; PULSE 75; TEMP 98.6
== END 2019-02-22 18:04 | disposition home or self-care (01) ==
LOC: JONCBLOOD 07:51 → J7W 08:02 → JONCBLOOD 18:04
PROVIDERS: ATTEND Internal Medicine Hematology & Oncology
PROC: 30233N1 Transfusion of Nonautologous Red Blood Cells into Peripheral Vein, Percutaneous Approach (ICD-10-PCS; principal; 2019-02-22)
DX: D57.1 Sickle-cell disease without crisis (principal)
CPT/HCPCS: 36415; 36430; 36511; 85025; 85044; 86850; 86900; 86901; 86922; P9038; P9058

== ENCOUNTER 2019-03-21 07:40 | Day surgery (SDC) | payer OTHER ==
[2019-03-21 09:51] LABS: BASO % 0.9 % (0-2.0); EOS % 7.2 % (0-4.5); LYMPH % 16.1 % (8-40); MCH 36.6 pg (25.7-33.7); MCHC 35.8 g/dl (32.0-36.0); MEAN CELL VOLUME 102.2 fl (80-96); MEAN PLT VOLUME 9.2 fl (7.5-11.1); MONO % 10.6 % (3.8-10.2); NEUT % 65.2 % (42.8-82.8); PLATELET COUNT 307 K/MM3 (134-434); RBC 1.66 M/mm3 (3.60-5.2); RDW 30.1 % (11.6-15.6)
[2019-03-21 10:04] LABS: WHITE BLOOD COUNT 12.5 K/mm3 (4.0-10.0)
[2019-03-21 10:06] LABS: HEMOGLOBIN 6.1 GM/dL (10.7-15.3)
[2019-03-21 10:08] LABS: ALBUMIN 3.7 g/dl (3.4-5.0); BLOOD UREA NITROGEN 24.7 mg/dL (7-18); CALCIUM 8.4 mg/dL (8.5-10.1); CREATININE 1.1 mg/dL (0.55-1.3); POTASSIUM 4.7 mmol/L (3.5-5.1)
--- NOTE | 2019-03-21 15:51 | HP ---
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) Heme/Onc: Yes: Sickle Cell Disease Endocrine: Yes: Hypothyroidism - Smoking History Smoking history: Never smoked Have you smoked in the past 12 months: No Aproximately how many cigarettes per day: 0 - Alcohol/Substance Use Hx Alcohol Use: No History of Substance Use: reports: None - Social History History of Recent Travel: No Home Medications - Allergies Allergies/Adverse Reactions: Allergies Allergy/AdvReac Type Severity Reaction Status Date / Time codeine [Codeine] Allergy Verified 10/27/18 08:32 - Home Medications Home Medications: Ambulatory Orders Folic Acid - 1 mg PO DAILY 02/19/12 Levothyroxine [Synthroid -] 25 mcg PO DAILY 02/19/12 Ramipril [Altace] 5 mg PO DAILY 04/05/12 Spironolactone [Aldactone -] 25 mg PO DAILY 04/05/12 Hydroxyurea [Hydrea 500Mg Capsule -] 500 mg PO BID 04/18/13 Lansoprazole [Prevacid] 30 mg PO DAILY 08/29/13 Metoprolol Tartrate [Lopressor -] 50 mg PO BID 06/18/15 Aspirin [Aspirin EC] 81 mg PO ASDIR 03/16/17 Diazepam [Valium] 5 mg PO Q8H PRN #12 tablet MDD 15mg 05/29/18 Oxycodone HCl/Acetaminophen [Percocet 5-325 mg Tablet] 1 tab PO Q6H PRN #12 tablet MDD 4 tabs 05/29/18 Cyclobenzaprine HCl [Flexeril -] 10 mg PO HS #10 tablet 10/27/18 Ibuprofen 600 mg PO Q6H #30 tablet 10/27/18 Oxycodone HCl/Acetaminophen [Percocet 5-325 mg Tablet] 1 tab PO Q6H #10 tablet MDD 4 10/27/18 Physical Examination Vital Signs: Vital Signs Temperature 98.1 F 03/21/19 13:19 Pulse Rate 94 H 03/21/19 13:19 Respiratory Rate 18 03/21/19 13:19 Blood Pressure 140/86 03/21/19 13:19 O2 Sat by Pulse Oximetry (%) Labs: CBC, BMP 03/21/19 08:45 03/21/19 08:45 Assessment/Plan 58 year old with sickle cell disease admitted for transfusion Hb-6.1, HCT - 17% ON HYDREA. TRANSFUSION DEPENDENT, Has cardomyopathy - so receives only one unit of p.c. History of cerebral aneurysm s/p repair Last Vital Signs Temp Pulse Resp BP Pulse Ox 98.1 F 94 H 18 140/86 03/21/19 13:19 03/21/19 13:19 03/21/19 13:19 03/21/19 13:19 HEENT: TIANA, EOM Intact Oropharynx: No thrush, No mucositis Cor: RSR, No murmurs, No gallops Lungs: Clear to P&A Abd: Soft, Normal bowel sounds, No organomegaly Ext:No significant edema Skin: No rashes, Integument intact CBC, BMP 03/21/19 08:45 03/21/19 08:45 Impression SS disease Symptomatic anemia Plan- transfuse -1 packed cells.
[2019-03-21 17:45] LABS: BASO % 1.6 % (0-2.0); EOS % 7.7 % (0-4.5); HEMATOCRIT 21.9 % (32.4-45.2); HEMOGLOBIN 7.6 GM/dL (10.7-15.3); LYMPH % 17.7 % (8-40); MCH 33.5 pg (25.7-33.7); MCHC 34.7 g/dl (32.0-36.0); MEAN CELL VOLUME 96.7 fl (80-96); MEAN PLT VOLUME 9.3 fl (7.5-11.1); MONO % 9.9 % (3.8-10.2); NEUT % 63.1 % (42.8-82.8); PLATELET COUNT 315 K/MM3 (134-434); RBC 2.26 M/mm3 (3.60-5.2); RDW 29.8 % (11.6-15.6); WHITE BLOOD COUNT 11.1 K/mm3 (4.0-10.0)
[2019-03-21 18:39] LABS: ANISOCYTOSIS 2+; MACROCYTOSIS 1+; OVALOCYTE 1+; PLATELET ESTIMATE NORMAL
[2019-03-21 18:54] VITALS: BP 141/78; PULSE 82; TEMP 99
== END 2019-03-21 18:25 | disposition home or self-care (01) ==
LOC: JONCBLOOD 07:40 → J7W 07:44 → JONCBLOOD 17:45
PROVIDERS: ATTEND Internal Medicine Hematology & Oncology
CPT/HCPCS: 36415; 36430; 36511; 80053; 83735; 85025; 86850; 86900; 86901; 86922; P9038; P9058

== ENCOUNTER 2019-04-26 08:18 | Day surgery (SDC) | payer OTHER ==
[2019-04-26] MEDS ORDERED: oxyCODONE HCL 5 MG TABLET PO PRN (08:48)
[2019-04-26 10:19] LABS: PLATELET COUNT 250 K/MM3 (134-434)
[2019-04-26 10:51] LABS: ALBUMIN 3.4 g/dl (3.4-5.0); BILIRUBIN,TOTAL 6.1 mg/dL (0.2-1); BLOOD UREA NITROGEN 13.9 mg/dL (7-18); CALCIUM 8.8 mg/dL (8.5-10.1); CREATININE 0.9 mg/dL (0.55-1.3); MAGNESIUM 1.9 mg/dL (1.8-2.4); POTASSIUM 4.5 mmol/L (3.5-5.1); TOT PROT 7.5 g/dl (6.4-8.2); URIC ACID 9.7 mg/dL (2.6-7.2)
[2019-04-26 11:28] LABS: BASO % 0.9 % (0-2.0); EOS % 6.5 % (0-4.5); HEMATOCRIT 18.2 % (32.4-45.2); LYMPH % 12.8 % (8-40); MCH 36.7 pg (25.7-33.7); MCHC 36.5 g/dl (32.0-36.0); MEAN CELL VOLUME 100.6 fl (80-96); MEAN PLT VOLUME 8.6 fl (7.5-11.1); MONO % 12.2 % (3.8-10.2); NEUT % 67.6 % (42.8-82.8); PLATELET COUNT 260 K/MM3 (134-434); RBC 1.81 M/mm3 (3.60-5.2); RDW 33.3 % (11.6-15.6)
[2019-04-26 11:58] LABS: ERYTHROCYTE SEDIMENTATION RATE 25 mm/hr (0-30)
[2019-04-26 12:09] LABS: PLATELET ESTIMATE NORMAL
[2019-04-26 12:21] LABS: HEMOGLOBIN 6.7 GM/dL (10.7-15.3)
[2019-04-26 12:22] LABS: CORRECTED WBC 9.03 K/mm3; WHITE BLOOD COUNT 10.2 K/mm3 (4.0-10.0)
[2019-04-26 12:23] LABS: ADD RBC MORPHOLOGY YES
[2019-04-26 15:49] VITALS: BP 130/75; PULSE 75; TEMP 98
[2019-04-26 16:55] LABS: HEMOGLOBIN 8.1 GM/dL (10.7-15.3); MCHC 35.2 g/dl (32.0-36.0); MEAN CELL VOLUME 96.6 fl (80-96); MEAN PLT VOLUME 9.4 fl (7.5-11.1); PLATELET COUNT 268 K/MM3 (134-434); RBC 2.38 M/mm3 (3.60-5.2); RDW 32.2 % (11.6-15.6); WHITE BLOOD COUNT 9.9 K/mm3 (4.0-10.0)
== END 2019-04-26 15:09 | disposition home or self-care (01) ==
LOC: JINFUSION 08:18 → J7W 08:21 → JINFUSION 15:09
PROVIDERS: ATTEND Internal Medicine Hematology & Oncology
PROC: 30233N1 Transfusion of Nonautologous Red Blood Cells into Peripheral Vein, Percutaneous Approach (ICD-10-PCS; principal; 2019-04-26)
DX: D57.1 Sickle-cell disease without crisis (principal)
CPT/HCPCS: 36415; 36430; 36511; 80053; 83615; 83735; 84550; 85025; 85027; 85032; 85651; 86850; 86900; 86901; 86922; 96365; 96366; P9038; P9058

== ENCOUNTER 2019-06-28 08:06 | Day surgery (SDC) | payer OTHER ==
[2019-06-28 10:40] LABS: BASO % 1.6 % (0-2.0); EOS % 7.4 % (0-4.5); HEMATOCRIT 16.6 % (32.4-45.2); LYMPH % 16.7 % (8-40); MCH 38.2 pg (25.7-33.7); MCHC 35.6 g/dl (32.0-36.0); MEAN CELL VOLUME 107.3 fl (80-96); MEAN PLT VOLUME 8.8 fl (7.5-11.1); MONO % 10.1 % (3.8-10.2); NEUT % 64.2 % (42.8-82.8); PLATELET COUNT 260 K/MM3 (134-434); RBC 1.54 M/mm3 (3.60-5.2); RDW 30.6 % (11.6-15.6)
[2019-06-28 10:54] LABS: HEMOGLOBIN 5.9 GM/dL (10.7-15.3)
[2019-06-28 11:12] LABS: ALBUMIN 3.5 g/dl (3.4-5.0); BILIRUBIN,TOTAL 5.6 mg/dL (0.2-1); BLOOD UREA NITROGEN 15.4 mg/dL (7-18); CALCIUM 8.5 mg/dL (8.5-10.1); CREATININE 0.9 mg/dL (0.55-1.3); POTASSIUM 4.5 mmol/L (3.5-5.1); TOT PROT 7.3 g/dl (6.4-8.2); URIC ACID 9.8 mg/dL (2.6-7.2)
[2019-06-28 15:24] LABS: ANISOCYTOSIS 2+; MACROCYTOSIS 1+; OVALOCYTE 2+; PLATELET ESTIMATE NORMAL
[2019-06-28 15:38] LABS: WHITE BLOOD COUNT 9.8 K/mm3 (4.0-10.0)
[2019-06-28 18:33] VITALS: BP 149/86; PULSE 91; TEMP 98.8
== END 2019-06-28 18:34 | disposition home or self-care (01) ==
LOC: JONCBLOOD 08:06 → J7W 08:07 → JONCBLOOD 18:34
PROVIDERS: ATTEND Internal Medicine Hematology & Oncology
PROC: 30233N1 Transfusion of Nonautologous Red Blood Cells into Peripheral Vein, Percutaneous Approach (ICD-10-PCS; principal; 2019-06-28)
DX: D57.1 Sickle-cell disease without crisis (principal)
CPT/HCPCS: 36415; 36430; 36511; 80053; 83615; 84550; 85025; 86850; 86900; 86901; 86922; P9038; P9058

== ENCOUNTER 2019-08-09 07:15 | Day surgery (SDC) | payer OTHER ==
[2019-08-09 09:59] LABS: HEMATOCRIT 16.9 % (32.4-45.2); MCH 38.5 pg (25.7-33.7); MCHC 35.9 g/dl (32.0-36.0); MEAN CELL VOLUME 107.1 fl (80-96); MEAN PLT VOLUME 8.7 fl (7.5-11.1); PLATELET COUNT 381 K/MM3 (134-434); RBC 1.58 M/mm3 (3.60-5.2); RDW 28.9 % (11.6-15.6)
[2019-08-09 10:11] LABS: HEMOGLOBIN 6.1 GM/dL (10.7-15.3)
[2019-08-09 10:29] LABS: ALBUMIN 3.3 g/dl (3.4-5.0); BILIRUBIN,TOTAL 5.1 mg/dL (0.2-1); BLOOD UREA NITROGEN 18.1 mg/dL (7-18); CALCIUM 8.3 mg/dL (8.5-10.1); CREATININE 0.8 mg/dL (0.55-1.3); MAGNESIUM 1.8 mg/dL (1.8-2.4); POTASSIUM 4.6 mmol/L (3.5-5.1); TOT PROT 7.2 g/dl (6.4-8.2)
[2019-08-09 11:20] LABS: ANISOCYTOSIS 2+; MACROCYTOSIS 1+; PLATELET ESTIMATE NORMAL; SICKELED CELLS 2+
[2019-08-09 11:29] LABS: WHITE BLOOD COUNT 10.5 K/mm3 (4.0-10.0)
[2019-08-09 16:35] VITALS: BP 137/71; PULSE 86; TEMP 98.2
== END 2019-08-09 16:36 | disposition home or self-care (01) ==
LOC: JONCBLOOD 07:15 → J7W 07:16 → JONCBLOOD 16:36
PROVIDERS: ATTEND Internal Medicine Hematology & Oncology
PROC: 30233N1 Transfusion of Nonautologous Red Blood Cells into Peripheral Vein, Percutaneous Approach (ICD-10-PCS; principal; 2019-08-09)
DX: D57.1 Sickle-cell disease without crisis (principal)
CPT/HCPCS: 36415; 36430; 36511; 80053; 83735; 85025; 86850; 86900; 86901; 86922; P9038; P9058

== ENCOUNTER 2019-08-11 17:49 | Emergency (ER) | payer OTHER ==
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
[2019-08-11 18:06] VITALS: BP 149/72; PULSE 88; TEMP 97.5; BMI 20.8
[2019-08-11] MEDS ORDERED: KETOROLAC TROMETHAMINE 30 MG/1 ML VIAL IM ONE (18:37)
[2019-08-11] MEDS ORDERED: KETOROLAC TROMETHAMINE 30 MG/1 ML VIAL ONE (18:37)
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
== END 2019-08-11 18:55 | disposition home or self-care (01) ==
LOC: JERFT 17:49
PROC: 3E0233Z Introduction of Anti-inflammatory into Muscle, Percutaneous Approach (ICD-10-PCS; principal; 2019-08-11)
DX: Z04.1 Encounter for examination and observation following transport accident (principal); M54.5 Low back pain; V49.49XA Driver injured in collision with other motor vehicles in traffic accident, initial encounter; Y92.414 Local residential or business street as the place of occurrence of the external cause; Y93.89 Activity, other specified; Y99.8 Other external cause status; I25.10 Atherosclerotic heart disease of native coronary artery without angina pectoris; I10 Essential (primary) hypertension; I42.9 Cardiomyopathy, unspecified; Z87.39 Personal history of other diseases of the musculoskeletal system and connective tissue; Z86.79 Personal history of other diseases of the circulatory system
CPT/HCPCS: 99284-25

== ENCOUNTER 2020-02-25 05:03 | Day surgery (SDC) | payer OTHER ==
[2020-02-24 09:27] VITALS: BMI 20.5
[~2020-02-25 05:03] MED LIST: ACETAMINOPHEN 325 MG TABLET (FP) PO PRN; BSS (NA/CA/MG/K) BALANCED SALT SOLUTION OPHTH SOLN 15 ML BOTTLE OD ONE; CHONDROITIN SU A/HYALUR SOD 1 KIT IO ONE; EPINEPHrine/PF 1 MG/1 ML (1:1,000) AMPULE SQ ONE; LIDOCAINE HCL 1% PRESERVATIVE FREE - 30ML VIAL IO ONE; PHENYLEPHRINE/KETOROLAC 4 ML VIAL IO ONE; POVIDONE-IODINE 5% OPHTHALMIC PREP 30 ML SOLUTION OD ONE; TETRACAINE 0.5% OPHTH SOLN 2 ML BOTTLE OD ONE
--- OUTSIDE RECORDS SUMMARY | 2020-02-25 05:11 | XMS ---
:1960 Author Organization [facility] Care Team Providers Name Role Phone Dickson Au Unavailable Apmaxi, Eriberto Unavailable Roe, Eriberto Unavailable Apuzzo, Eriberto Unavailable Apuzzo, Eriberto Unavailable Cassiusuzzo, Eriberto Unavailable Apuzzo, Eriberto Unavailable Apuzzo, Eriberto Unavailable Apuzzo, Eriberto Unavailable Apuzzo, Eriberto Unavailable Re-disclosure Warning The records that you are about to access may contain information from federally- assisted alcohol or drug abuse programs. If such information is present, then the following federally mandated warning applies: This information has been disclosed to you from records protected by federal confidentiality rules (42 CFR part 2). The federal rules prohibit you from making any further disclosure of this information unless further disclosure is expressly permitted by the written consent of the person to whom it pertains or as otherwise permitted by 42 CFR part 2. A general authorization for the release of medical or other information is NOT sufficient for this purpose. The Federal rules restrict any use of the information to criminally investigate or prosecute any alcohol or drug abuse patient.The records that you are about to access may contain highly sensitive health information, the redisclosure of which is protected by Article 27-F of the [facility] Public Health law. If you continue you may haveaccess to information: Regarding HIV / AIDS; Provided by facilities licensed or operated by the [facility] Office of Mental Health; or Provided by the [facility] Office for People With Developmental Disabilities. If such information is present, then the following [facility] mandated warning applies: This information has been disclosed to you from confidential records which are protected by state law. State law prohibits you from making any further disclosure of this information without the specific written consent of the person to whom it pertains, or as otherwise permitted by law. Any unauthorized further disclosure in violation of state law may result in a fine or senior living sentence or both. A general authorization for the release of medical or other information is NOT sufficient authorization for further disclosure. Encounters Encounter Providers Location Date Indications Data Source(s ) Attender: Dickson [facility]19[facility]2020 [facility] Attender: Dickson Au 02/19/2020 12:00:00 AM EDT [facility] ([facility]) Office Attender: Dickson Au 02/19/2020 12:00:00 AM EDT [facility] ([facility]) Office Medications Medication Brand Start Product Dose Route Administrative Pharmacy [facility] Indications Reaction Description Data Name Date Form Instructions Instructions Source(s) apixaban 5 ELIQUI 02/19/ TABLET 30 complet ELIQU IS [facility] (St MG Oral S:1364 2019 ed [facility] Tablet 447 12:00: Medical, [Eliquis] 00 AM ) ELIQUIS:136 EDT 4447 tramadol TRAMAD 01/22/ TABLET 60 complet TRAMADO L [facility] (St hydrochlori OL:835 2019 ed [facility] de 50 MG 603 12:00: Medical, Oral Tablet 00 AM ) TRAMADOL:83 EDT 5603 Folic Acid FOLIC 01/11/ TABLET 270 complet FOLIC ACID [facility] (St 1 MG Oral ACID:3 2019 ed [facility] Tablet 94164 12:00: Medical, FOLIC 00 AM PC) ACID:[id number] EDT VOLTAREN 10/29/ 1 complet VOLTAREN [facility] (St TRANSDERMAL 2019 ed TRANSDERMAL J ohn's GEL: 12:00: GEL Medical, 00 AM PC) EDT Betamethaso BETAME 10/12/ CREAM 1 complet BETAM ETHASON [facility] (St ne 0.5 THASON 2019 ed E [facility] MG/ML E 12:00: DIPROPIONATE Medi maya, Topical DIPROP 00 AM PC) Cream IONATE EDT BETAMETHASO :66280 NE 0 DIPROPIONAT E:413329 FLUTICASONE 09/24/ SPRAY 1 complet FLUTICA SONE [facility] (St NASAL:05393 2019 ed NASAL [facility] 07 12:00: Medical, 00 AM PC) EDT Levothyroxi LEVOTH 08/31/ TABLET 90 complet LEVO THYROXIN [facility] (St ne Sodium YROXIN 2019 ed E [facility] 0.025 MG E:9662 12:00: Medical , Oral Tablet 20 00 AM PC) LEVOTHYROXI EDT NE:821517 Ursodiol URSODI 08/31/ TABLET 90 complet URSODIO L [facility] (St 250 MG Oral OL:858 2020 ed [facility] Tablet 751 12:00: Medical, URSODIOL:85 00 AM PC) 8751 EDT Sertraline SERTRA 08/31/ TABLET 90 complet SERTR INDERJIT [facility] (St 50 MG Oral LINE:3 2019 ed [facility] Tablet 56343 12:00: Medical, SERTRALINE: 00 AM PC) [id number] EDT Insurance Providers Payer name Policy type Policy ID Covered Covered libertarian's Policy P lalo / Coverage libertarian ID relationship to Garcia Inf ormation type garcia [facility] MEDICAID [id number] SP [id number] [facility] [id number] 1 [id number] PLANS [facility] HEALTH [id number] SP [id number] CARE PROGRESSIVE [id number] SP [id number] [facility] [id number] SP [id number] PLANS PROGRESSIVE [id number] SP [id number] H STATEFAR [id number] SP [id number] [facility] [id number] SP [id number] [facility] [id number] [place] [id number] PLANS PENDING WC/NF [id number] SP [id number] ONLY MEDICAID [id number] SP [id number] Dental [id number] S [id number]-0 [employer] MKD MVP Medicaid [id number] S [id number] Managed Care [place] [id number] S [id number] Vision MKD [facility] [id number] S [id number] Options MKD Medicaid [id number] S [id number] Regular Clinic Visit Dental [id number] S [id number] [employer] MKD [facility] Medicaid [id number] S [id number] Managed Care [facility] [id number] SP [id number] PLANS [facility] MEDICAID [id number] SP [id number] HMO [facility] MEDICAID [id number] SP [id number] [employer] [facility] [employer] Problems, Conditions, and Diagnoses Code Display Name Description Problem Type Effective Data Sour ce(s) Dates I82.5Y1 Chronic embolism CHRONIC EMBOLISM Problem 02/19/2020 [facility] (St and thrombosis of AND THROMBOSIS OF 12:00:00 AM [facility] unspecified deep UNSPECIFIED DEEP EDT [facility] [place]) veins of right VEINS OF RIGHT proximal lower PROXIMAL LOWER extremity EXTREMITY Z01.818 Encounter for other ENCOUNTER FOR Problem 02/19/2020 [facility] (St preprocedural OTHER 12:00:00 AM [facility] examination PREPROCEDURAL EDT Medical, P C) EXAMINATION D57.1 Sickle-cell disease SICKLE-CELL Problem 10/30/2019 MED[facility] EN (St without crisis DISEASE WITHOUT 12:00:00 AM [facility] CRISIS EDT Medical, PC) M19.119 Post-traumatic POST-TRAUMATIC Problem 10/30/2019 [facility] (St osteoarthritis, OSTEOARTHRITIS, 12:00:00 AM [facility] unspecified UNSPECIFIED EDT Medical, PC) shoulder SHOULDER Surgeries/Procedures Procedure Description Date Indications Data Source(s) Documentation of current 02/19/2020 [facility] ([facility] medications (procedure) 12:00:00 AM EDT [facility] bhakta) OFFICE OUTPATIENT VISIT 02/19/2020 [facility] ([facility] 25 MINUTES 12:00:00 AM [facility], ) ECG ROUTINE ECG W/LEAST 02/19/2020 [facility] ([facility] 12 LDS W/I&R 12:00:00 AM [facility], ) COLLECTION VENOUS BLOOD 02/19/2020 [facility] ([facility] VENIPUNCTURE 12:00:00 AM [facility], ) OFFICE OUTPATIENT VISIT 10/30/2019 [facility] ([facility] 10 MINUTES 12:00:00 AM [facility], ) Results ID Date Data Source [id number] 02/20/2020 05:10:00 PM EDT [facility] Name Value Range Interpretation Description Data Sup porting Code Source(s) Document(s ) SARS [facility] coronavirus 2 RNA This lab was ordered by [facility] and reported by [facility]. ID Date Data Source [id number] 02/19/2020 12:00:00 AM EDT [facility] ([facility], ) Name Value Range Interpretation Description Data Sup porting Code Source(s) Document(s ) Prothrombin 13.5 sec Above high normal [facility] ([facility], ) INR 1.3 Above high normal [facility] ([facility], ) aPTT 30 sec Normal (applies [facility] (St to non-numeric [facility] results) Medical, ) ID Date Data Source [id number] 02/19/2020 12:00:00 AM EDT [facility] ([facility], ) Name Value Range Interpretation Description Data Sup porting Code Source(s) Document(s ) Urea nitrogen 20 mg/dL Normal (applies [facility] (St [Mass/volume] in to non-numeric [facility] Serum or Plasma results) Medical, ) Glucose 97 mg/dL Normal (applies [facility] (St [Mass/volume] in to non-numeric [facility] Urine collected for results) Medical, unspecified ) duration eGFR If NonAfricn 63 Normal (applies [facility] (St Am mL/min/1 to non-numeric [facility] .73 results) Medical, PC) Creatinine 1.00 Normal (applies [facility] (St [Interpretation] in mg/dL to non-numeric [facility] s Urine results) Medical, ) Sodium 140 Normal (applies [facility] (St [Moles/volume] in mmol/L to non-numeric [facility] Serum or Plasma results) Medical, ) eGFR If Africn Am 72 Normal (applies [facility] (St mL/min/1 to non-numeric [facility] .73 results) Medical, PC) BUN/Creatinine 20 Normal (applies [facility] (S t Ratio to non-numeric [facility] results) Medical, ) Potassium 4.4 Normal (applies [facility] (St [Mass/volume] in mmol/L to non-numeric [facility] Blood results) Medical, PC) Chloride 110 Above high [facility] (St [Moles/volume] in mmol/L normal [facility] Serum or Plasma Medical, ) Carbon dioxide, 16 Below low normal [facility] (St total mmol/L [facility] [Moles/volume] in Medical, Serum or Plasma PC) Protein 7.3 g/dL Normal (applies [facility] (St [Mass/volume] in to non-numeric [facility] Serum or Plasma results) Medical, ) Calcium 8.6 Below low normal [facility] (St [Moles/volume] in mg/dL [facility] Urine collected for Medical, unspecified PC) duration A/G Ratio 0.9 Below low normal [facility] ([facility], ) Microalbumin 3.5 g/dL Below low normal [facility] (St [Mass/time] in [facility] Urine collected for Medical, unspecified PC) duration Globulin, Total 3.8 g/dL Normal (applies [facility] ( St to non-numeric [facility] results) Medical, ) Bilirubin.total 7.7 Above high [facility] (St [Mass/volume] in mg/dL normal [facility] Serum or Plasma Medical, ) Alkaline 183 IU/L Above high [facility] (St phosphatase normal [facility] [Enzymatic Medical, activity/volume] in PC) Serum, Plasma or Blood Aspartate 54 IU/L Above high [facility] (St aminotransferase normal [facility] [Enzymatic Medical, activity/volume] in PC) Serum or Plasma Alanine 22 IU/L Normal (applies [facility] (St aminotransferase to non-numeric [facility] [Enzymatic results) Medical, activity/volume] in ) Serum or Plasma ID Date Data Source [id number] 02/19/2020 12:00:00 AM EDT [facility] ([facility], ) Name Value Range Interpretation Description Data Sup porting Code Source(s) Document(s ) Leukocytes 6.5 Normal (applies [facility] (St [#/volume] in x10E3/uL to non-numeric [facility] Blood by results) [facility], ) Automated count Hemoglobin 6.4 g/dL Below lower panic [facility] (St [Mass/volume] in limits [facility] Blood [facility], ) Hematocrit 18.0 % Below absolute [facility] (St [Volume low-off [facility] Fraction] of instrument scale Medical, P C) Blood by Automated count Erythrocytes 1.67 Below lower panic [facility] (S t [#/volume] in x10E6/uL limits [facility] Blood by [facility], ) Automated count MCH 38.3 pg Above high normal [facility] ([facility], ) MCV 108 fL Above high normal [facility] ([facility], ) MCHC 35.6 Normal (applies [facility] (St g/dL to non-numeric [facility] results) [facility], ) Platelets 210 Normal (applies [facility] (St [#/area] in x10E3/uL to non-numeric [facility] Blood by results) [facility], ) Microscopy high power field Lymphs 15 % Normal (applies [facility] (St to non-numeric [facility] results) [facility]) Neutrophils [#] 61 % Normal (applies [facility] ( St in Body fluid by to non-numeric [facility] Manual count results) [facility], ) Eos 3 % Normal (applies [facility] (St to non-numeric [facility] results) [facility]) Monocytes 18 % Normal (applies [facility] (St [#/volume] in to non-numeric [facility] Cord blood results) [facility], ) Basos 3 % Normal (applies [facility] (St to non-numeric [facility] results) [facility]) Lymphs 1.0 Normal (applies [facility] (St (Absolute) x10E3/uL to non-numeric [facility] results) [facility], ) Neutrophils 4.0 Normal (applies [facility] (St (Absolute) x10E3/uL to non-numeric [facility] results) [facility]) Monocytes(Absolu 1.2 Above high normal MEDGE N (St te) x10E3/uL [facility], ) Eos (Absolute) 0.2 Normal (applies [facility] (S t x10E3/uL to non-numeric [facility] results) Medical, ) Baso (Absolute) 0.2 Normal (applies [facility] ( St x10E3/uL to non-numeric [facility] results) [facility], ) NRBC 45 % Above high normal [facility] ([facility], ) Hematology Note: Normal (applies [facility] (St Comments: to non-numeric [facility] results) Medical, ) ID Date Data Source [id number] 12/25/2019 02:47:00 PM EDT [facility] Name Value Range Interpretation Code Description Data Gabby rce(s) Supporting Document(s ) COV2 [facility] This lab was ordered by LISY ramos nd reported by [facility]. Procedure Social History Code Duration Value Status Description Data Source(s ) Smoking 02/20/2020 (-) drugs (-) completed (-) drugs (-) smoke [facility] (St 12:00:00 AM EDT smoke 1-2 1-2 tea/day (-) [facility] Medical, tea/day (-) ETOH ETOH lives alone PC ) lives alone (with demented MOM) (with demented MOM) Smoking 02/20/2020 Unknown if ever completed Unknown if ever MEDG EN (St 12:00:00 AM EDT smoked smoked [facility], ) Vital Signs ID Date Data Source UNK Name Value Range Interpretation Code Description Data Source(s) Body mass index 19.5 kg/m2 19.5 kg/m2 [facility] (S t [facility] (BMI) [Ratio] [facility], ) Diastolic blood 80 mm[Hg] 80 mm[Hg] [facility] (S t [facility] pressure [facility], ) Systolic blood 132 mm[Hg] 132 mm[Hg] [facility] ([facility] pressure [facility], ) Body weight 117 lb 117 lb [facility] ([facility], ) Body height 65 in 65 in [facility] ([facility], )
[2020-02-25] MEDS ORDERED: LIDOCAINE HCL/PF 1% SDV 5ML VIAL ONE (07:21)
[2020-02-25] MEDS ORDERED: POVIDONE-IODINE 5% OPHTHALMIC PREP 30 ML SOLUTION ONE (07:21)
[2020-02-25] MEDS ORDERED: TETRACAINE 0.5% OPHTH SOLN 2 ML BOTTLE ONE (07:21)
[2020-02-25] MEDS ORDERED: CHONDROITIN SU A/HYALUR SOD 1 KIT ONE (07:23)
[2020-02-25] MEDS ORDERED: OFLOXACIN 0.3% OPHTHALMIC SOLUTION 5 ML BOTTLE ONE (08:59)
[2020-02-25] MEDS ORDERED: KETOROLAC TROMETHAMINE 0.5% EYE DROP 1 DROP DROPS ONE (09:00)
[2020-02-25] MEDS ORDERED: TROPICAMIDE 1% OPHTH SOLN 15 ML BOTTLE ONE (09:00)
[2020-02-25] MEDS ORDERED: CYCLOPENTOLATE HCL 1% OPHTH SOLN 2 ML BOTTLE ONE (09:00)
[2020-02-25] MEDS: TROPICAMIDE 1% OPHTH SOLN 15 ML BOTTLE OP SCH ×3 (09:10→09:34)
[2020-02-25] MEDS: CYCLOPENTOLATE HCL 1% OPHTH SOLN 2 ML BOTTLE OP SCH ×3 (09:10→09:35)
[2020-02-25] MEDS: OFLOXACIN 0.3% OPHTHALMIC SOLUTION 5 ML BOTTLE OP SCH ×3 (09:10→09:34)
[2020-02-25] MEDS: PHENYLEPHRINE 2.5% OPHTH SOLN 15 ML BOTTLE OP SCH ×3 (09:10→09:34)
[2020-02-25] MEDS: KETOROLAC TROMETHAMINE 0.5% EYE DROP 1 DROP DROPS OP SCH ×3 (09:10→09:35)
[2020-02-25] MEDS ORDERED: MIDAZOLAM HCL 2 MG/2 ML SINGLE DOSE VIAL ONE (10:52)
[2020-02-25] MEDS ORDERED: TETRACAINE 0.5% OPHTH SOLN 2 ML BOTTLE OD ONE (11:07)
[2020-02-25] MEDS ORDERED: POVIDONE-IODINE 5% OPHTHALMIC PREP 30 ML SOLUTION OD ONE (11:08)
[2020-02-25] MEDS ORDERED: BSS (NA/CA/MG/K) BALANCED SALT SOLUTION OPHTH SOLN 15 ML BOTTLE OD ONE (11:13)
[2020-02-25] MEDS ORDERED: TRYPAN BLUE 0.5 ML DISP.SYRIN IO ONE (11:13)
[2020-02-25] MEDS ORDERED: LIDOCAINE HCL 1% PRESERVATIVE FREE - 30ML VIAL IO ONE (11:13)
[2020-02-25] MEDS ORDERED: CHONDROITIN SU A/HYALUR SOD 1 KIT IO ONE (11:13)
[2020-02-25] MEDS ORDERED: PHENYLEPHRINE/KETOROLAC 4 ML VIAL IO ONE ×2 (11:15→11:22)
[2020-02-25 12:03] VITALS: TEMP 98
--- NOTE | 2020-02-25 12:18 | SPEC ---
DATE OF OPERATION: 02/25/2020 OPERATION: Phacoemulsification of right cataract, capsular staining with Trypan blue and intraocular lens implantation, lens used [id number], 15.0 Diopter power, Serial No. [id number]. PREOPERATIVE DIAGNOSIS: Cataract right eye. POSTOPERATIVE DIAGNOSIS: Combined cataract right eye. SURGEON: Aisha Sandhu M.D. ANESTHESIA: Topical MAC. COMPLICATIONS: None. PROCEDURE: The patient was brought to the operating room and correctly identified along with the operative site as well as correct intraocular lens reid. The patient was then prepped and draped in the usual sterile fashion including 5% Betadine solution in the conjunctival sac and an eyelid drape. An eyelid speculum was then placed into the operative eye. The eye was inspected and a poor red reflex was noted. A paracentesis port was created and 0.5 mL of intracameral preservative-free lidocaine 1% was given. Beneath an air bubble, the capsule was then stained with Trypan blue. The Trypan blue was then irrigated from the eye with balanced salt solution (BBS). Viscoelastic was injected to inflate the anterior chamber. A temporal clear corneal wound was created. A continuous circular capsulorrhexis was performed. The nucleus was then hydro-dissected and hydro-delineated was BSS and removed with phacoemulsification via [id number] approach. The remaining cortical material was irrigated and aspirated from the eye. Viscoelastic was injected in the anterior chamber to inflate the capsular bag. The intraocular lens was then injected into the bag. The Viscoelastic was irrigated and aspirated from the eye. All wounds were tested and found to be watertight. No suture was placed. The intraocular lens was noted to be well centered and covered by the anterior capsular border. Topical Vancomycin was given. The eye was patched and shielded. The patient was discharged from the operating room in stable condition. AISHA SANDHU M.D. HERMAN/[id number]
[2020-02-25 15:19] VITALS: BP 122/66; PULSE 74
== END 2020-02-25 15:20 | disposition home or self-care (01) ==
LOC: JASU-SURG 05:03
PROVIDERS: ATTEND Ophthalmology
PROC: 08RJ3JZ Replacement of Right Lens with Synthetic Substitute, Percutaneous Approach (ICD-10-PCS; principal; 2020-02-25 11:00)
DX: H26.8 Other specified cataract (principal)
CPT/HCPCS: J1097

== ENCOUNTER 2020-03-17 07:30 | Day surgery (SDC) | payer OTHER ==
--- OUTSIDE RECORDS SUMMARY | 2020-03-12 19:28 | XMS ---
:1960 Author Organization [facility] Care Team Providers Name Role Phone Dickson uA Unavailable Apuzzo, Eriberto Unavailable Apuzzo, Eriberto Unavailable [...] is protected by Article 27-F of the [facility] Public Health law. If you continue you may haveaccess to information: Regarding HIV / AIDS; Provided by facilities licensed or operated by the [facility] Office of Mental Health; or Provided by the [facility] Office for People With Developmental Disabilities. If such information is present, then the following [facility] mandated warning applies: This information has [...] law may result in a fine or alf sentence or both. A general authorization for the release of medical or other information is NOT sufficient authorization for further disclosure. Encounters Encounter Providers Location Date Indications Data Source(s ) Attender: Dickson 02/19/2020 MEDGEN ( [facility] 12:00:00 AM [facility]) Office Attender: Dickson Au 02/19/2020 12:00:00 AM EDT MEDGEN ([facility]) Office Attender: Dickson Au 02/19/2020 12:00:00 AM EDT MEDGEN ([facility]) Office Medications Medication Brand Start Product Dose Route Administrative Pharmacy [facility] Indications Reaction Description Data Name [...] ) TRAMADOL:83 EDT 5603 Folic Acid FOLIC 08/03/ TABLET 270 complet FOLIC ACID MEDGEN (St 1 MG Oral ACID:3 2019 ed [facility] Tablet 30300 12:00: Medical, FOLIC 00 AM PC) ACID:[id number] EDT VOLTAREN 10/29/ 1 complet VOLTAREN ME DGEN (St TRANSDERMAL 2019 ed TRANSDERMAL J ohn's GEL: 12:00: GEL Medical, 00 AM PC) EDT Betamethaso BETAME 10/12/ CREAM 1 complet BETAM ETHASON MEDGEN (St ne 0.5 THASON 2019 ed E [facility] MG/ML E 12:00: DIPROPIONATE Medi maya, Topical DIPROP 00 AM PC) Cream IONATE EDT BETAMETHASO :15363 NE 0 DIPROPIONAT E:547478 FLUTICASONE 09/24/ SPRAY 1 complet FLUTICA SONE MEDGEN (St NASAL:98373 2019 ed NASAL [facility] 07 12:00: Medical, 00 AM PC) EDT Levothyroxi LEVOTH 08/31/ TABLET 90 complet LEVO THYROXIN MEDGEN (St ne Sodium YROXIN 2019 ed E [facility] 0.025 MG E:9662 12:00: Medical , Oral Tablet 20 00 AM PC) LEVOTHYROXI EDT NE:484335 Ursodiol URSODI 08/31/ TABLET 90 complet URSODIO L MEDGEN (St 250 MG Oral OL:858 2019 ed [facility] Tablet 751 12:00: Medical, URSODIOL:85 00 AM PC) 8751 EDT Sertraline SERTRA 08/31/ TABLET 90 complet SERTR INDERJIT MEDGEN (St 50 MG Oral LINE:3 2019 ed [facility] Tablet 16333 12:00: Medical, SERTRALINE: 00 AM PC) 139250 EDT Insurance Providers Payer name Policy type Policy ID Covered Covered alliance party's Policy P lalo / Coverage alliance party ID relationship to Garcia Inf ormation type garcia [facility] MEDICAID [id number] SP [id number] [facility] [id number] 1 [id number] PLANS [facility] HEALTH [id number] SP [id number] CARE PROGRESSIVE [id number] SP [id number] [facility] [id number] SP [id number] PLANS PROGRESSIVE [id number] SP [id number] H STATEFAR [id number] SP [id number] [facility] [id number] SP [id number] [facility] [id number] SP [id number] PLANS PENDING WC/NF [id number] SP [id number] 222 ONLY MEDICAID [id number] SP [id number] Dental [id number] S [id number] M-0 [employer] MKD MVP Medicaid [id number] S [id number] Managed Care [place] [id number] S [id number] 300 Vision MKD [place] [facility] [id number] S [id number] Options MKD Medicaid 4013 [id number] S [id number] Regular Clinic Visit Dental [id number] S [id number] 300 [employer] D [facility] Medicaid [id number] S [id number] Managed Care [facility] [id number] SP [id number] PLANS [facility] MEDICAID [id number] SP [id number] HMO [facility] MEDICAID [id number] SP [id number] [facility] [place] [place] Problems, Conditions, and Diagnoses Code Display Name Description Problem Type Effective Data Sour ce(s) Dates I82.5Y1 Chronic embolism CHRONIC EMBOLISM Problem 02/19/2020 ME DGEN (St and thrombosis of AND THROMBOSIS OF 12:00:00 AM [facility] unspecified deep UNSPECIFIED DEEP EDT Fl vivian PC) veins of right VEINS OF RIGHT proximal [...] MEDG EN ([facility] 25 MINUTES 12:00:00 AM [facility], ) ECG ROUTINE ECG W/LEAST 02/19/2020 MEDG EN ([facility] 12 LDS W/I&R 12:00:00 AM [facility], ) COLLECTION VENOUS BLOOD 02/19/2020 MEDG EN ([facility] VENIPUNCTURE 12:00:00 AM [facility], ) OFFICE OUTPATIENT VISIT 10/30/2019 MEDG EN ([facility] 10 MINUTES 12:00:00 AM [facility], ) Results ID Date Data Source [id number] 02/20/2020 05:10:00 PM EDT [facility] Name Value Range Interpretation Description Data Sup porting Code Source(s) Document(s ) SARS [facility] coronavirus 2 RNA This lab was ordered by [facility] and reported by [facility]. ID Date Data Source [id number] 02/19/2020 12:00:00 AM EDT [facility] ) Name Value Range Interpretation Description Data Sup porting Code Source(s) Document(s ) Prothrombin 13.5 sec Above high normal MEDGEN ([facility] [place], ) INR 1.3 Above high normal MEDGEN ([facility], ) aPTT 30 sec Normal (applies MEDGEN (St to non-numeric [facility] results) [facility], ) ID Date Data Source [id number] 02/19/2020 12:00:00 AM EDT [facility] ([facility], ) Name Value Range Interpretation Description Data Sup porting Code Source(s) Document(s ) Urea nitrogen 20 mg/dL Normal (applies MEDGEN (St [Mass/volume] in to non-numeric [facility] Serum or Plasma results) Medical, ) Glucose 97 mg/dL Normal (applies MEDGEN (St [Mass/volume] in to non-numeric [facility] Urine collected for results) [facility], unspecified ) duration eGFR If NonAfricn 63 Normal (applies MEDGEN (St Am mL/min/1 to non-numeric [facility]ung's .73 results) Medical, ) Creatinine 1.00 Normal (applies MEDGEN (St [Interpretation] [...] t Ratio to non-numeric Dung's results) Medical, PC) Potassium 4.4 Normal (applies MEDGEN (St [Mass/volume] [...] Ratio 0.9 Below low normal MEDGEN ([facility], ) Microalbumin 3.5 g/dL Below low normal [...] non-numeric [facility] [Enzymatic results) Medical, activity/volume] in PC) Serum or Plasma ID Date Data Source [id number] 02/19/2020 12:00:00 AM EDT [facility] ([facility], ) Name Value Range Interpretation Description Data Sup porting Code Source(s) Document(s ) Leukocytes 6.5 Normal (applies MEDGEN (St [#/volume] in x10E3/uL to non-numeric [facility] Blood by results) [facility], ) Automated count Hemoglobin 6.4 g/dL Below lower panic MEDGEN (St [Mass/volume] in limits [facility] Blood [facility], ) Hematocrit 18.0 % Below absolute MEDGEN (St [Volume low-off Dung's Fraction] of instrument scale Medical, P C) Blood by Automated count Erythrocytes 1.67 Below lower panic MEDGEN (S t [#/volume] in x10E6/uL limits [facility] Blood by [facility], ) Automated count MCH 38.3 pg Above high normal MEDGEN ([facility], ) MCV 108 fL Above high normal MEDGEN ([facility], ) MCHC 35.6 Normal (applies MEDGEN (St g/dL to non-numeric [facility]ung's results) [facility], ) Platelets 210 Normal (applies MEDGEN (St [#/area] in x10E3/uL to non-numeric [facility] Blood by results) [facility], ) Microscopy high power field Lymphs 15 % Normal (applies MEDGEN (St to non-numeric [facility]ung's results) [facility]) Neutrophils [#] 61 % Normal (applies MEDGEN ( St in Body fluid by to non-numeric [facility] Manual count results) [facility]) Eos 3 % Normal (applies MEDGEN (St to non-numeric [facility]ung's results) [facility]) Monocytes 18 % Normal (applies MEDGEN (St [#/volume] in to non-numeric [facility]'s Cord blood results) [facility], ) Basos 3 % Normal (applies MEDGEN (St to non-numeric Dung's results) [facility]) Lymphs 1.0 Normal (applies MEDGEN (St (Absolute) x10E3/uL to non-numeric Dung's results) [facility], ) Neutrophils 4.0 Normal (applies MEDGEN (St (Absolute) x10E3/uL to non-numeric Dung's results) [facility]) Monocytes(Absolu 1.2 Above high normal MEDGE N (St te) x10E3/uL [facility], ) Eos (Absolute) 0.2 Normal (applies MEDGEN (S t x10E3/uL to non-numeric [facility]ung's results) [facility], ) Baso (Absolute) 0.2 Normal (applies MEDGEN ( St x10E3/uL to non-numeric [facility]'s results) [facility], ) NRBC 45 % Above high normal MEDGEN ([place], ) Hematology Note: Normal (applies MEDGEN (St Comments: to non-numeric [facility]ung's results) Medical, ) ID Date Data Source [id number] 12/25/2019 02:47:00 PM EDT [facility] Name Value Range Interpretation Code Description Data Gabby rce(s) Supporting Document(s ) COV2 [facility] This lab was ordered by LISY ramos nd reported by [facility]. Procedure Social History Code Duration Value Status [...] 12:00:00 AM EDT smoked smoked [facility] Me [facility], ) Vital Signs ID Date Data Source UNK Name Value Range Interpretation Code Description Data Source(s) Body mass index 19.5 kg/m2 19.5 kg/m2 MEDGEN (S t [facility] (BMI) [Ratio] [facility], ) Diastolic blood 80 mm[Hg] 80 mm[Hg] MEDGEN (S t [facility] pressure [facility], ) Systolic blood 132 mm[Hg] 132 mm[Hg] MEDGEN ([facility] pressure [facility], ) Body weight 117 lb 117 lb MED[facility] ([facility], ) Body height 65 in 65 in MEDGEN ([facility], )
[2020-03-16 19:05] VITALS: BMI 20.8
[~2020-03-17 07:30] MED LIST changes: -BSS (NA/CA/MG/K) BALANCED SALT SOLUTION OPHTH SOLN 15 ML BOTTLE OD ONE; +BSS (NA/CA/MG/K) BALANCED SALT SOLUTION OPHTH SOLN 15 ML BOTTLE OS ONE; +CYCLOPENTOLATE HCL 1% OPHTH SOLN 2 ML BOTTLE OP SCH; -EPINEPHrine/PF 1 MG/1 ML (1:1,000) AMPULE SQ ONE; +KETOROLAC TROMETHAMINE 0.5% EYE DROP 1 DROP DROPS OP SCH; +OFLOXACIN 0.3% OPHTHALMIC SOLUTION 5 ML BOTTLE OP SCH; +PHENYLEPHRINE 2.5% OPHTH SOLN 15 ML BOTTLE OP SCH; -POVIDONE-IODINE 5% OPHTHALMIC PREP 30 ML SOLUTION OD ONE; -TETRACAINE 0.5% OPHTH SOLN 2 ML BOTTLE OD ONE; +TROPICAMIDE 1% OPHTH SOLN 15 ML BOTTLE OP SCH; +TRYPAN BLUE 0.5 ML DISP.SYRIN IO ONE
[2020-03-17] MEDS ORDERED: CYCLOPENTOLATE HCL 1% OPHTH SOLN 2 ML BOTTLE OS ONE ×3 (07:40→08:00)
[2020-03-17] MEDS ORDERED: TROPICAMIDE 1% OPHTH SOLN 15 ML BOTTLE OS ONE ×3 (07:40→08:00)
[2020-03-17] MEDS ORDERED: PHENYLEPHRINE 2.5% OPHTH SOLN 15 ML BOTTLE OS ONE ×3 (07:40→08:00)
[2020-03-17] MEDS ORDERED: KETOROLAC TROMETHAMINE 0.5% EYE DROP 1 DROP DROPS OS ONE ×3 (07:40→08:00)
[2020-03-17] MEDS ORDERED: OFLOXACIN 0.3% OPHTHALMIC SOLUTION 5 ML BOTTLE OS ONE ×3 (07:40→08:00)
--- OUTSIDE RECORDS SUMMARY | 2020-03-17 08:27 | XMS ---
:1960 Author Organization [facility] Care Team Providers Name Role Phone Dickson Au Unavailable Apuzzo, Eriberto Unavailable Apfaustoo, Eribetro Unavailable Apuzzo, Eriberto Unavailable Apuzzo, Eriberto Unavailable [...] is protected by Article 27-F of the [facility] Public Health law. If you continue you may haveaccess to information: Regarding HIV / AIDS; Provided by facilities licensed or operated by the [facility] Office of Mental Health; or Provided by the [facility] Office for People With Developmental Disabilities. If such information is present, then the following [facility] mandated warning applies: This information has been [...] law may result in a fine or detention sentence or both. A general authorization for the release of medical or other information is NOT sufficient authorization for further disclosure. Encounters Encounter Providers Location Date Indications Data Source(s ) Attender: Dickson 02/19/2020 MEDGEN ( [facility] 12:00:00 AM [facility]) Office Attender: Dickson Au 02/19/2020 12:00:00 AM EDT MEDGEN ([facility]) Office Attender: Dickson Au 02/19/2020 12:00:00 AM EDT MEDGEN ([facility]) Office Medications Medication Brand Start Product Dose Route Administrative Pharmacy [facility] Indications Reaction Description Data Name [...] MG Oral ACID:3 2019 ed [facility] Tablet 59043 12:00: Medical, FOLIC 00 AM PC) ACID:[id number] EDT VOLTAREN 10/29/ 1 complet VOLTAREN ME DGEN (St TRANSDERMAL 2019 ed TRANSDERMAL J ohn's GEL: 12:00: GEL Medical, 00 AM PC) EDT Betamethaso BETAME 10/12/ CREAM 1 complet BETAM ETHASON MEDGEN (St ne 0.5 THASON 2019 ed E [facility] MG/ML E 12:00: DIPROPIONATE Medi maya, Topical DIPROP 00 AM PC) Cream IONATE EDT BETAMETHASO :11682 NE 0 DIPROPIONAT E:596792 FLUTICASONE 09/24/ SPRAY 1 complet FLUTICA SONE MEDGEN (St NASAL:54622 2019 ed NASAL [facility] 07 12:00: Medical, 00 AM PC) EDT Levothyroxi LEVOTH 08/31/ TABLET 90 complet LEVO THYROXIN MEDGEN (St ne Sodium YROXIN 2019 ed E [facility] 0.025 MG E:9662 12:00: Medical , Oral Tablet 20 00 AM PC) LEVOTHYROXI EDT NE:263143 Ursodiol URSODI 08/31/ TABLET 90 complet URSODIO L MEDGEN (St 250 MG Oral OL:858 2019 ed [facility] Tablet 751 12:00: Medical, URSODIOL:85 00 AM PC) 8751 EDT Sertraline SERTRA 08/31/ TABLET 90 complet SERTR INDERJIT MEDGEN (St 50 MG Oral LINE:3 2019 ed [facility] Tablet 43412 12:00: Medical, SERTRALINE: 00 AM PC) [id number] EDT Insurance Providers Payer name Policy type Policy ID Covered Covered constitution party's Policy P lalo / Coverage constitution party ID relationship to Garcia Inf ormation type garcia [facility] MEDICAID [id number] SP [id number] [facility] [id number] SP [id number] PLANS [facility] MEDICAID [id number] SP [id number] [facility] [id number] 1 [id number] PLANS [facility] [id number] SP [id number] CARE PROGRESSIVE [id number] SP [id number] PROGRESSIVE [id number] SP [id number] H [facility] [id number] SP [id number] [facility] [id number] SP [id number] [facility] [id number] SP [id number] PLANS PENDING WC/NF [id number] SP [id number] 222 ONLY MEDICAID [id number] SP [id number] Dental [id number] S [id number] M-0 [employer] MKD MVP Medicaid [id number] S [id number] Managed Care [place] [id number] S [id number] 300 Vision MKD [place] [facility] [id number] S [id number] Options MKD Medicaid [id number] S [id number] Regular Clinic Visit Dental [id number] S [id number] 300 [employer] MKD [facility] Medicaid [id number] S [id number] Managed Care [facility] [id number] SP [id number] PLANS [facility] MEDICAID [id number] SP [id number] O [facility] MEDICAID [id number] SP [id number] [facility] Problems, Conditions, and Diagnoses Code Display Name Description Problem Type Effective Data Sour ce(s) Dates I82.5Y1 Chronic embolism CHRONIC EMBOLISM Problem 02/19/2020 ME DGEN (St and thrombosis of AND THROMBOSIS OF 12:00:00 AM [facility] unspecified deep UNSPECIFIED DEEP EDT Ms vivian, PC) veins of right VEINS OF RIGHT [...] GEN ([facility] medications (procedure) 12:00:00 AM EDT livia PC) OFFICE OUTPATIENT VISIT 02/19/2020 MEDG EN ([facility] 25 MINUTES 12:00:00 AM [facility], ) ECG ROUTINE ECG W/LEAST 02/19/2020 MEDG EN ([facility] 12 LDS W/I&R 12:00:00 AM [facility], ) COLLECTION VENOUS BLOOD 02/19/2020 MEDG EN ([facility] VENIPUNCTURE 12:00:00 AM [facility], ) OFFICE OUTPATIENT VISIT 10/30/2019 MEDG EN ([facility] 10 MINUTES 12:00:00 AM [facility], ) Results ID Date Data Source [id number] 03/12/2020 12:30:00 PM EDT [facility] Name Value Range Interpretation Description Data Sup porting Code Source(s) Document(s ) SARS [facility] coronavirus 2 RNA This lab was ordered by [facility] and reported by [facility]. ID Date Data Source [id number] 02/20/2020 05:10:00 PM EDT [facility] Name Value Range Interpretation Description Data Sup porting Code Source(s) Document(s ) SARS [facility] coronavirus 2 RNA This lab was ordered by [facility] and reported by [facility]. ID Date Data Source [id number] 02/19/2020 12:00:00 AM EDT MEDGEN ([facility], ) Name Value Range Interpretation Description Data Sup porting Code Source(s) Document(s ) Prothrombin 13.5 sec Above high normal MEDGEN ([facility], ) INR 1.3 Above high normal MEDGEN ([facility], ) aPTT 30 sec Normal (applies MEDGEN (St to non-numeric [facility]ung's results) [facility], ) ID Date Data Source [id number] 02/19/2020 12:00:00 AM EDT MEDGEN ([facility], ) Name Value Range Interpretation Description Data Sup porting Code Source(s) Document(s ) Urea nitrogen 20 mg/dL Normal (applies MEDGEN (St [Mass/volume] in to non-numeric [facility]ung's Serum or Plasma results) Medical, PC) Glucose 97 mg/dL Normal (applies MEDGEN (St [Mass/volume] in to non-numeric [facility]ung's Urine collected for results) Medical, unspecified PC) duration eGFR If NonAfricn 63 Normal (applies MEDGEN (St Am mL/min/1 to non-numeric [facility]'s .73 results) Medical, PC) Creatinine 1.00 Normal (applies MEDGEN (St [Interpretation] in mg/dL to non-numeric Dung' s Urine results) Medical, PC) Sodium 140 Normal (applies MEDGEN (St [Moles/volume] in mmol/L to non-numeric [facility] Serum or Plasma results) Medical, PC) eGFR If Africn Am 72 Normal (applies [...] mg/dL normal [facility] Serum or Plasma Medical, PC) Alkaline 183 IU/L Above high MEDGEN (St phosphatase normal [facility] [Enzymatic Medical, activity/volume] in PC) Serum, Plasma or Blood Aspartate 54 IU/L Above high MEDGEN (St aminotransferase normal [facility] [Enzymatic Medical, activity/volume] in PC) Serum or Plasma Alanine 22 IU/L Normal (applies MEDGEN (St aminotransferase to non-numeric [facility]ung's [Enzymatic results) Medical, activity/volume] in ) Serum or Plasma ID Date Data Source [id number] 02/19/2020 12:00:00 AM EDT MEDGEN ([facility], ) Name Value Range Interpretation Description Data Sup porting Code Source(s) Document(s ) Leukocytes 6.5 Normal (applies MEDGEN (St [#/volume] in x10E3/uL to non-numeric [facility] Blood by results) Medical, ) Automated count Hemoglobin 6.4 g/dL Below lower panic MEDGEN (St [Mass/volume] in limits [facility] Blood [facility], ) Hematocrit 18.0 % Below absolute MEDGEN (St [Volume low-off Dung's Fraction] of instrument scale Medical, P C) Blood by Automated count Erythrocytes 1.67 Below lower panic MEDGEN (S t [#/volume] in x10E6/uL limits [facility]ung[facility] Blood by [facility], ) Automated count MCH 38.3 pg Above high normal MEDGEN ([facility], ) MCV 108 fL Above high normal MEDGEN ([facility], ) MCHC 35.6 Normal (applies MEDGEN (St g/dL to non-numeric [facility]ung's results) [facility], ) Platelets 210 Normal (applies MEDGEN (St [#/area] in x10E3/uL to non-numeric [facility] Blood by results) Medical, ) Microscopy high power field Lymphs 15 % Normal (applies MEDGEN (St to non-numeric [facility]ung's results) Medical, ) Neutrophils [#] 61 % Normal (applies MEDGEN ( St in Body fluid by to non-numeric [facility]'s Manual count results) Medical, ) Eos 3 % Normal (applies MEDGEN (St to non-numeric [facility]'s results) Medical, ) Monocytes 18 % Normal (applies MEDGEN (St [#/volume] in to non-numeric [facility]'s Cord blood results) Medical, ) Basos 3 % Normal (applies MEDGEN (St to non-numeric [facility]'s results) Medical, ) Lymphs 1.0 Normal (applies MEDGEN (St (Absolute) x10E3/uL to non-numeric Dung's results) Medical, ) Neutrophils 4.0 Normal (applies MEDGEN (St (Absolute) x10E3/uL to non-numeric Dung's results) Medical, ) Monocytes(Absolu 1.2 Above high normal MEDGE N (St te) x10E3/uL [facility], ) Eos (Absolute) 0.2 Normal (applies MEDGEN (S t x10E3/uL to non-numeric [facility]ung's results) Medical, ) Baso (Absolute) 0.2 Normal (applies MEDGEN ( St x10E3/uL to non-numeric [facility]'s results) [facility], ) NRBC 45 % Above high normal MEDGEN ([facility], ) Hematology Note: Normal (applies MEDGEN (St Comments: to non-numeric [facility]ung[facility] results) [facility], ) ID Date Data Source [id number] 12/25/2019 02:47:00 PM EDT [facility] Name Value Range Interpretation Code Description Data Gabby rce(s) Supporting Document(s ) COV2 [facility] This lab was ordered by LISY ramos nd reported by [facility]. Procedure Social History Code Duration Value [...] 12:00:00 AM EDT smoked smoked [facility] Me [facility], ) Vital Signs ID Date Data Source UNK Name Value Range Interpretation Code Description Data Source(s) Body mass index 19.5 kg/m2 19.5 kg/m2 MEDGEN (S t [facility] (BMI) [Ratio] [facility], ) Diastolic blood 80 mm[Hg] 80 mm[Hg] MEDGEN (S t [facility] pressure [facility], ) Systolic blood 132 mm[Hg] 132 mm[Hg] MEDGEN ([facility] pressure [facility], ) Body weight 117 lb 117 lb MEDGEN ([facility], ) Body height 65 in 65 in MED ([facility], PC)
[2020-03-17] MEDS ORDERED: MIDAZOLAM HCL 2 MG/2 ML SINGLE DOSE VIAL ONE (09:00)
[2020-03-17] MEDS ORDERED: TETRACAINE 0.5% OPHTH SOLN 2 ML BOTTLE OS ONE (09:04)
[2020-03-17] MEDS ORDERED: POVIDONE-IODINE 5% OPHTHALMIC PREP 30 ML SOLUTION OS ONE (09:05)
[2020-03-17] MEDS ORDERED: TRYPAN BLUE 0.5 ML DISP.SYRIN IO ONE (09:10)
[2020-03-17] MEDS ORDERED: LIDOCAINE HCL 1% PRESERVATIVE FREE - 30ML VIAL IO ONE (09:10)
[2020-03-17] MEDS ORDERED: BSS (NA/CA/MG/K) BALANCED SALT SOLUTION OPHTH SOLN 15 ML BOTTLE OS ONE (09:10)
[2020-03-17] MEDS ORDERED: CHONDROITIN SU A/HYALUR SOD 1 KIT IO ONE (09:10)
[2020-03-17] MEDS ORDERED: PHENYLEPHRINE/KETOROLAC 4 ML VIAL IO ONE (09:22)
--- NOTE | 2020-03-17 12:08 | SPEC ---
DATE OF OPERATION: 03/17/2020 OPERATION: Phacoemulsification of left cataract, capsular staining with trypan blue and intraocular lens implantation, lens used [id number], 14.5 diopter power, serial number [id number]. PREOPERATIVE DIAGNOSIS: Cataract left eye. POSTOPERATIVE DIAGNOSIS: Cataract left eye. SURGEON: Rojas Darling M.D. ANESTHESIA: Topical MAC. COMPLICATIONS: None. PROCEDURE: The patient was brought to the operating room and correctly identified along with the operative site as well as correct intraocular lens reid. The patient was then prepped and draped in the usual sterile fashion including 5% Betadine solution in the conjunctival sac and an eyelid drape. An eyelid speculum was then placed into the operative eye. The eye was inspected and a poor red reflex was noted. A paracentesis port was created and 0.5 mL of intracameral preservative-free lidocaine 1% was given. Beneath an air bubble, the capsule was then stained with trypan blue. The trypan blue was then irrigated from the eye with balanced salt solution (BBS). Viscoelastic was injected to inflate the anterior chamber. A temporal clear corneal wound was created. A continuous circular capsulorrhexis was performed. The nucleus was then hydrodissected and hydrodelineated was BSS and removed with phacoemulsification via [id number] approach. The remaining cortical material was irrigated and aspirated from the eye. Viscoelastic was injected in the anterior chamber to inflate the capsular bag. The intraocular lens was then injected into the bag. The viscoelastic was irrigated and aspirated from the eye. All wounds were tested and found to be watertight. No suture was placed. The intraocular lens was noted to be well centered and covered by the anterior capsular border. Topical vancomycin was given. The eye was patched and shielded. The patient was discharged from the operating room in stable condition. Catia [id number]
[2020-03-17 14:42] VITALS: BP 144/85; PULSE 98; TEMP 97.3
== END 2020-03-17 11:30 | disposition home or self-care (01) ==
LOC: JASU-SURG 07:30
PROVIDERS: ATTEND Ophthalmology
PROC: 08RK3JZ Replacement of Left Lens with Synthetic Substitute, Percutaneous Approach (ICD-10-PCS; principal; 2020-03-17 09:00)
DX: H26.9 Unspecified cataract (principal)
CPT/HCPCS: J1097

== ENCOUNTER 2020-03-19 10:38 | Day surgery (SDC) | payer OTHER ==
--- OUTSIDE RECORDS SUMMARY | 2020-03-19 10:50 | XMS ---
:1960 Author Organization [facility] Care Team Providers Name Role Phone Dickson Au Unavailable Apuzzo, Eriberto Unavailable Freemano, Eriberto Unavailable Apuzzo, Eriberto Unavailable Apuzzo, Eriberto [...] is protected by Article 27-F of the [facility] Public Health law. If you continue you may haveaccess to information: Regarding HIV / AIDS; Provided by facilities licensed or operated by the [facility] Office of Mental Health; or Provided by the [facility] Office for People With Developmental Disabilities. If such information is present, then the following [facility] mandated warning applies: This information has [...] law may result in a fine or prison sentence or both. A general authorization for the release of medical or other information is NOT sufficient authorization for further disclosure. Encounters Encounter Providers Location Date Indications Data Source(s ) Attender: Dickson 03/18/2020 [facility] ( [facility] 12:00:00 AM EDT [facility]) Office Attender: Dickson Au 03/18/2020 12:00:00 AM EDT [facility] ([facility] Office Attender: Dickson Au 03/18/2020 12:00:00 AM EDT [facility] ([facility] Office Attender: Dickson Au 02/19/2020 12:00:00 AM EDT [facility] ([facility] Office Attender: Dickson Au 02/19/2020 12:00:00 AM EDT [facility] ([facility] Office Attender: Dickson Au 02/19/2020 12:00:00 AM EDT [facility] ([facility], ) Office Immunizations Vaccine Date Status Description Data Source(s) New in 2011. IIV4 03/18/2020 12:00:00 completed ME [facility] ([facility] AM EDT [facility], [facility]) Medications Medication Brand Start Product Dose Route Administrative Pharmacy [facility] Indications Reaction Description Data Name Date Form Instructions Instructions Source(s) Furosemide FUROSE 03/18/ TABLET 10 complet FUROS EMIDE [facility] (St 20 MG Oral MIDE:3 2019 ed [facility] Tablet 00272 12:00: Medical, FUROSEMIDE: 00 AM PC) [id number] EDT apixaban 5 ELIQUI 02/19/ TABLET 30 complet ELIQU IS [facility] (St MG Oral S:[id number] ed [facility] Tablet 447 12:00: Medical, [Eliquis] 00 AM PC) ELIQUIS:136 EDT 4447 apixaban 5 ELIQUI 02/19/ TABLET 30 complet ELIQU IS [facility] (St MG Oral S:[id number] ed [facility] Tablet 447 12:00: Medical, [Eliquis] 00 AM PC) ELIQUIS:136 EDT 4447 tramadol TRAMAD /14/ TABLET 60 complet TRAMADO L [facility] (St hydrochlori OL:832019 ed [facility] de 50 MG 603 12:00: Medical, Oral Tablet 00 AM PC) TRAMADOL:83 EDT 5603 tramadol TRAMAD 14/ TABLET 60 complet TRAMADO L [facility] (St hydrochlori OL:832019 ed [facility] de 50 MG 603 12:00: Medical, Oral Tablet 00 AM PC) TRAMADOL:83 EDT 5603 Folic Acid FOLIC 01/11/ TABLET 270 complet FOLIC ACID [facility] (St 1 MG Oral ACID:2019 ed [facility] Tablet 56249 12:00: Medical, FOLIC 00 AM PC) ACID:[id number] EDT Folic Acid FOLIC 01/11/ TABLET 270 complet FOLIC ACID [facility] (St 1 MG Oral ACID:2019 ed [facility] Tablet 20411 12:00: Medical, FOLIC 00 AM PC) ACID:[id number] EDT VOLTAREN complet VOLTAREN [facility] (St TRANSDERMAL 2019 ed TRANSDERMAL J [facility] GEL: 12:00: GEL Medical, 00 AM PC) EDT VOLTAREN complet VOLTAREN [facility] (St TRANSDERMAL 2019 ed TRANSDERMAL J ohn's GEL: 12:00: GEL Medical, 00 AM PC) EDT Betamethaso BETAME 10/12/ CREAM 1 complet BETAM ETHASON [facility] (St ne 0.5 THASON 2020 ed E [facility] MG/ML E 12:00: DIPROPIONATE Medi maya, Topical DIPROP 00 AM PC) Cream IONATE EDT BETAMETHASO :14409 NE 0 DIPROPIONAT E:167507 Betamethaso BETAME 05/04/ CREAM 1 complet BETAM ETHASON [facility] (St ne 0.5 THASON 2020 ed E [facility] MG/ML E 12:00: DIPROPIONATE Medi maya, Topical DIPROP 00 AM PC) Cream IONATE EDT BETAMETHASO :30134 NE 0 DIPROPIONAT E:[id number] FLUTICASONE 16/ SPRAY 1 complet FLUTICA SONE [facility] (St NASAL:2019 ed NASAL [facility] 07 12:00: Medical, 00 AM PC) EDT FLUTICASONE 16/ SPRAY 1 complet FLUTICA SONE [facility] (St NASAL:2019 ed NASAL [facility] 07 12:00: Medical, 00 AM PC) EDT Levothyroxi LEVOTH 08/31/ TABLET 90 complet LEVO THYROXIN [facility] (St ne Sodium YROXIN 2019 ed E [facility] 0.025 MG E:9662 12:00: Medical , Oral Tablet 20 00 AM PC) LEVOTHYROXI EDT NE:961021 Ursodiol URSODI 08/31/ TABLET 90 complet URSODIO L [facility] (St 250 MG Oral OL:2019 ed [facility] Tablet 751 12:00: Medical, URSODIOL:85 00 AM PC) 8751 EDT Levothyroxi LEVOTH 23/ TABLET 90 complet LEVO THYROXIN [facility] (St ne Sodium YROXIN 2019 ed E [facility] 0.025 MG E:9662 12:00: Medical , Oral Tablet 20 00 AM PC) LEVOTHYROXI EDT NE:685235 Ursodiol URSODI 23/ TABLET 90 complet URSODIO L [facility] (St 250 MG Oral OL:852019 ed [facility] Tablet 751 12:00: Medical, URSODIOL:85 00 AM PC) 8751 EDT Sertraline SERTRA 08/31/ TABLET 90 complet SERTR INDERJIT [facility] (St 50 MG Oral LINE:3 2019 ed [facility] Tablet 12816 12:00: Medical, SERTRALINE: 00 AM PC) [id number] EDT Sertraline SERTRA 08/31/ TABLET 90 complet SERTR INDERJIT [facility] (St 50 MG Oral LINE:2019 ed [facility] Tablet 65744 12:00: Medical, SERTRALINE: 00 AM PC) [id number] EDT Insurance Providers Payer name Policy type Policy ID Covered Covered democrat's Policy P lalo / Coverage democrat ID relationship to Garcia Inf ormation type garcia [facility] MEDICAID [id number] SP [id number] [facility] MEDICAID [id number] SP [id number] [facility] [id number] SP [id number] PLANS [facility] [id number] 1 [id number] PLANS [facility] [id number] SP [id number] CARE PROGRESSIVE [id number] SP [id number] PROGRESSIVE [id number] SP [id number] H [employer] [id number] SP [id number] STATE[employer]ARM [id number] SP [id number] [facility] [id number] SP [id number] PLANS PENDING WC/NF [id number] SP [id number] ONLY MEDICAID [id number] SP [id number] S [id number] [facility] Medicaid [id number] S [id number] Managed Care [place] [id number] S [id number] Vision [facility] Saltese Hlth [id number] S [id number] Options [facility] Medicaid [id number] S [id number] Regular Clinic Visit Dental [id number] S [id number] 300 [facility] Medicaid [id number] S [id number] Managed Care [facility] [id number] [place] [id number] [facility] MEDICAID [id number] SP [id number] [facility] MEDICAID [id number] SP [id number] [facility] Problems, Conditions, and Diagnoses Code Display Name Description Problem Type Effective Data Sour ce(s) Dates R60.9 Edema, unspecified EDEMA, UNSPECIFIED Problem 0 [facility] (St 12:00:00 AM Celsos [facility] Medical, [place]ON) Z23 Encounter for ENCOUNTER FOR Problem 03/18/2020 MED[facility] ( St immunization IMMUNIZATION 12:00:00 AM [facility] Medical, ) I82.5Y1 Chronic embolism CHRONIC EMBOLISM Problem 02/19/2020 ME [facility] (St and thrombosis of AND THROMBOSIS OF 12:00:00 AM [facility] unspecified deep UNSPECIFIED DEEP EDT Va dical, ) veins of right VEINS OF RIGHT proximal lower PROXIMAL LOWER extremity EXTREMITY Z01.818 Encounter for other ENCOUNTER FOR Problem 02/19/2020 ME [facility] (St preprocedural OTHER 12:00:00 AM [facility] examination PREPROCEDURAL EDT Medical, P C) EXAMINATION I82.5Y1 Chronic embolism CHRONIC EMBOLISM Problem 02/19/2020 ME [facility] (St and thrombosis of AND THROMBOSIS OF 12:00:00 AM [facility] unspecified deep UNSPECIFIED DEEP EDT Va dical, ) veins of right VEINS OF RIGHT proximal lower PROXIMAL LOWER extremity EXTREMITY Z01.818 Encounter for other ENCOUNTER FOR Problem 02/19/2020 ME [facility] (St preprocedural OTHER 12:00:00 AM [facility] examination PREPROCEDURAL EDT Medical, P C) EXAMINATION D57.1 Sickle-cell disease SICKLE-CELL Problem 10/30/2019 MEDG EN (St without crisis DISEASE WITHOUT 12:00:00 AM Dugn 's CRISIS EDT Medical, ) M19.119 Post-traumatic POST-TRAUMATIC Problem 10/30/2019 [facility] (St osteoarthritis, OSTEOARTHRITIS, 12:00:00 AM [facility] unspecified UNSPECIFIED EDT Medical, ) shoulder SHOULDER D57.1 Sickle-cell disease SICKLE-CELL Problem 10/30/2019 MEDG EN (St without crisis DISEASE WITHOUT 12:00:00 AM Dung 's CRISIS EDT Medical, ) M19.119 Post-traumatic POST-TRAUMATIC Problem 10/30/2019 [facility] (St osteoarthritis, OSTEOARTHRITIS, 12:00:00 AM [facility] unspecified UNSPECIFIED EDT Medical, ) shoulder SHOULDER Surgeries/Procedures Procedure Description Date Indications Data Source(s) Documentation of current 03/18/2020 [facility] ([facility] medications (procedure) 12:00:00 AM EDT edical, ) OFFICE OUTPATIENT VISIT 03/18/2020 [facility] EN ([facility] 15 MINUTES 12:00:00 AM EDT Medical, PC) THERAPEUTIC 03/18/2020 [facility] ([facility] PROPHYLACTIC/DX INJECTION 12:00:00 AM EDT Medical, PC) SUBQ/IM INFLUENZA VACCINE SPLT 03/18/2020 MEDGE N ([facility] PRSRV FREE INC ANTIGEN IM 12:00:00 AM [facility]) Documentation of current 02/19/2020 MED [facility] ([facility] medications (procedure) 12:00:00 AM [facility]) OFFICE OUTPATIENT VISIT 02/19/2020 MEDG EN ([facility] 25 MINUTES 12:00:00 AM [facility]) ECG ROUTINE ECG W/LEAST 02/19/2020 MED[facility] EN ([facility] 12 LDS W/I&R 12:00:00 AM [facility]) COLLECTION VENOUS BLOOD 02/19/2020 MED[facility] EN ([facility] VENIPUNCTURE 12:00:00 AM [facility]) Documentation of current 02/19/2020 MED [facility] ([facility] medications (procedure) 12:00:00 AM [facility]) OFFICE OUTPATIENT VISIT 02/19/2020 MED[facility] EN ([facility] 25 MINUTES 12:00:00 AM [facility]) ECG ROUTINE ECG W/LEAST 02/19/2020 MED[facility] EN ([facility] 12 LDS W/I&R 12:00:00 AM [facility]) COLLECTION VENOUS BLOOD 02/19/2020 MED[facility] EN ([facility] VENIPUNCTURE 12:00:00 AM [facility]) OFFICE OUTPATIENT VISIT 10/30/2019 MED[facility] EN ([facility] 10 MINUTES 12:00:00 AM [facility]) OFFICE OUTPATIENT VISIT 10/30/2019 MED[facility] EN ([facility] 10 MINUTES 12:00:00 AM [facility]) Results ID Date Data Source [id number] 03/12/2020 12:30:00 PM EDT [facility] Name Value Range Interpretation Description Data Sup porting Code Source(s) Document(s ) SARS [facility] coronavirus 2 RNA This lab was ordered by [facility] and reported by [facility]. ID Date Data Source [id number] 02/20/2020 05:10:00 PM EDT [facility] Name Value Range Interpretation Description Data Sup porting Code Source(s) Document(s ) SARS [facility] coronavirus 2 RNA This lab was ordered by [facility] and reported by [facility]. ID Date Data Source [id number] 02/19/2020 12:00:00 AM EDT [facility] ([facility]) Name Value Range Interpretation Description Data Sup porting Code Source(s) Document(s ) INR 1.3 Above high normal [facility] ([facility], [facility]) aPTT 30 sec Normal (applies [facility] (St to non-numeric [facility]'s results) Medical, PC) Prothrombin 13.5 sec Above high normal [facility] (St Time [facility], [facility]) ID Date Data Source [id number] 02/19/2020 12:00:00 AM EDT [facility] (St [facility], [facility]) Name Value Range Interpretation Description Data Sup porting Code Source(s) Document(s ) Glucose 97 mg/dL Normal (applies [facility] (St [Mass/volume] in to non-numeric [facility] Urine collected for results) Medical, unspecified PC) duration Urea nitrogen 20 mg/dL Normal (applies [facility] (St [Mass/volume] in to non-numeric [facility] Serum or Plasma results) Medical, PC) eGFR If Africn Am 72 Normal (applies [facility] (St mL/min/1 to non-numeric [facility] .73 results) Medical, PC) Creatinine 1.00 Normal (applies [facility] (St [Interpretation] in mg/dL to non-numeric Dung' s Urine results) Medical, PC) eGFR If NonAfricn 63 Normal (applies [facility] (St Am mL/min/1 to non-numeric [facility] .73 results) Medical, PC) BUN/Creatinine 20 Normal (applies [facility] (S t Ratio to non-numeric [facility] results) Medical, PC) Sodium 140 Normal (applies [facility] (St [Moles/volume] in mmol/L to non-numeric [facility] Serum or Plasma results) Medical, PC) Potassium 4.4 Normal (applies [facility] (St [Mass/volume] in mmol/L to non-numeric [facility] Blood results) Medical, PC) Carbon dioxide, 16 Below low normal [facility] (St total mmol/L [facility] [Moles/volume] in Medical, Serum or Plasma PC) Chloride 110 Above high [facility] (St [Moles/volume] in mmol/L normal [facility] Serum or Plasma Medical, PC) Calcium 8.6 Below low normal [facility] (St [Moles/volume] in mg/dL [facility] Urine collected for Medical, unspecified PC) duration Protein 7.3 g/dL Normal (applies [facility] (St [Mass/volume] in to non-numeric [facility] Serum or Plasma results) Medical, ) Microalbumin 3.5 g/dL Below low normal [facility] (St [Mass/time] in [facility] Urine collected for Medical, unspecified PC) duration Globulin, Total 3.8 g/dL Normal (applies [facility] ( St to non-numeric [facility] results) Medical, ) A/G Ratio 0.9 Below low normal [facility] ([facility], ) Alkaline 183 IU/L Above high [facility] (St phosphatase normal [facility] [Enzymatic Medical, activity/volume] in ) Serum, Plasma or Blood Bilirubin.total 7.7 Above high [facility] (St [Mass/volume] in mg/dL normal [facility] Serum or Plasma [facility], ) Alanine 22 IU/L Normal (applies [facility] (St aminotransferase to non-numeric [facility] [Enzymatic results) Medical, activity/volume] in ) Serum or Plasma Aspartate 54 IU/L Above high [facility] (St aminotransferase normal [facility] [Enzymatic Medical, activity/volume] in ) Serum or Plasma ID Date Data Source [id number] 02/19/2020 12:00:00 AM EDT [facility] ([facility], ) Name Value Range Interpretation Description Data Sup porting Code Source(s) Document(s ) Leukocytes 6.5 Normal (applies [facility] (St [#/volume] in x10E3/uL to non-numeric [facility] Blood by results) Medical, ) Automated count Erythrocytes 1.67 Below lower panic MED[facility] (S t [#/volume] in x10E6/uL limits [facility] by [facility], ) Automated count Hemoglobin 6.4 g/dL Below lower panic [facility] (St [Mass/volume] in limits [facility], ) Hematocrit 18.0 % Below absolute [facility] (St [Volume low-off [facility] Fraction] of instrument scale Medical, P C) Blood by Automated count MCV 108 fL Above high normal [facility] ([facility], ) MCH 38.3 pg Above high normal [facility] ([facility], ) Neutrophils [#] 61 % Normal (applies [facility] ( St in Body fluid by to non-numeric [facility] Manual count results) [facility]) Platelets 210 Normal (applies MED[facility] (St [#/area] in x10E3/uL to non-numeric [facility] Blood by results) [facility]) Microscopy high power field MCHC 35.6 Normal (applies MEDGEN (St g/dL to non-numeric [facility]'s results) [facility]) Monocytes 18 % Normal (applies [facility] (St [#/volume] in to non-numeric [facility] Cord blood results) [facility]) Lymphs 15 % Normal (applies [facility] (St to non-numeric [facility]'s results) [facility]) Basos 3 % Normal (applies [facility] (St to non-numeric [facility]'s results) [facility]) Neutrophils 4.0 Normal (applies MED[facility] (St (Absolute) x10E3/uL to non-numeric [facility]'s results) [facility]) Eos 3 % Normal (applies [facility] (St to non-numeric [facility]'s results) [facility]) Monocytes(Absolu 1.2 Above high normal MEDGE N (St te) x10E3/uL [facility]) Lymphs 1.0 Normal (applies MED[facility] (St (Absolute) x10E3/uL to non-numeric [facility] results) [facility]) Eos (Absolute) 0.2 Normal (applies [facility] (S t x10E3/uL to non-numeric [facility] results) [facility]) Baso (Absolute) 0.2 Normal (applies [facility] ( St x10E3/uL to non-numeric [facility] results) [facility]) NRBC 45 % Above high normal [facility] ([facility], ) Hematology Note: Normal (applies [facility] (St Comments: to non-numeric [facility]ung's results) [facility]) ID Date Data Source [id number] 02/19/2020 12:00:00 AM EDT [facility] ([facility], ) Name Value Range Interpretation Description Data Sup porting Code Source(s) Document(s ) Prothrombin 13.5 sec Above high normal [facility] ([facility], ) INR 1.3 Above high normal [facility] ([facility], ) aPTT 30 sec Normal (applies [facility] (St to non-numeric [facility]'s results) Medical, ) ID Date Data Source [id number] 02/19/2020 12:00:00 AM EDT [facility] ([facility], ) Name Value Range Interpretation Description [...] mmol/L normal [facility] Serum or Plasma Medical, PC) Carbon dioxide, 16 Below low normal [facility] (St total mmol/L [facility] [Moles/volume] in Medical, Serum or Plasma PC) Protein 7.3 g/dL Normal (applies [facility] (St [Mass/volume] in to non-numeric [facility] Serum or Plasma results) Medical, PC) Calcium 8.6 Below low normal [facility] (St [Moles/volume] in mg/dL [facility] Urine collected for Medical, unspecified PC) duration A/G Ratio 0.9 Below low normal [facility] ([facility]) Microalbumin 3.5 g/dL Below low normal [facility] (St [Mass/time] in [facility] Urine collected for Medical, unspecified PC) duration Globulin, Total 3.8 g/dL Normal (applies [facility] ( St to non-numeric [facility] results) [facility], ) Bilirubin.total 7.7 Above high MED[facility] (St [Mass/volume] in mg/dL normal [facility] Serum or Plasma [facility], ) Alkaline 183 IU/L Above high MED[facility] (St phosphatase normal [facility] [Enzymatic Medical, activity/volume] in ) Serum, Plasma or Blood Aspartate 54 IU/L Above high MEDGEN (St aminotransferase normal [facility] [Enzymatic Medical, activity/volume] in ) Serum or Plasma Alanine 22 IU/L Normal (applies MEDGEN (St aminotransferase to non-numeric [facility] [Enzymatic results) Medical, activity/volume] in ) Serum or Plasma ID Date Data Source [id number] 02/19/2020 12:00:00 AM EDT [facility] (St [facility], ) Name Value Range Interpretation Description Data Sup porting Code Source(s) Document(s ) Leukocytes 6.5 Normal (applies MED[facility] (St [#/volume] in x10E3/uL to non-numeric [facility] Blood by results) [facility], ) Automated count Hemoglobin 6.4 g/dL Below lower panic MED[facility] (St [Mass/volume] in limits [facility] Blood [facility], ) Hematocrit 18.0 % Below absolute MED[facility] (St [Volume low-off [facility]'s Fraction] of instrument scale Medical, P C) Blood by Automated count Erythrocytes 1.67 Below lower panic MEDGEN (S t [#/volume] in x10E6/uL limits [facility] Blood by [facility], ) Automated count MCH 38.3 pg Above high normal [facility] ([facility], ) MCV 108 fL Above high normal [facility] ([facility], ) MCHC 35.6 Normal (applies MED[facility] (St g/dL to non-numeric [facility] results) [facility], ) Platelets 210 Normal (applies MEDGEN (St [#/area] in x10E3/uL to non-numeric [facility] Blood by results) [facility], ) Microscopy high power field Lymphs 15 % Normal (applies [facility] (St to non-numeric [facility] results) [facility], ) Neutrophils [#] 61 % Normal (applies MEDGEN ( St in Body fluid by to non-numeric [facility] Manual count results) [facility], ) Eos 3 % Normal (applies [facility] (St to non-numeric [facility] results) [facility], ) Monocytes 18 % Normal (applies [facility] (St [#/volume] in to non-numeric [facility] Cord blood results) [facility], ) Basos 3 % Normal (applies [facility] (St to non-numeric [facility] results) [facility], ) Lymphs 1.0 Normal (applies MEDGEN (St (Absolute) x10E3/uL to non-numeric [facility] results) Medical, ) Neutrophils 4.0 Normal (applies MED[facility] (St (Absolute) x10E3/uL to non-numeric [facility] results) [facility], ) Monocytes(Absolu 1.2 Above high normal MEDGE N (St te) x10E3/uL [facility], ) Eos (Absolute) 0.2 Normal (applies MED[facility] (S t x10E3/uL to non-numeric [facility] results) [facility], ) Baso (Absolute) 0.2 Normal (applies MED[facility] ( St x10E3/uL to non-numeric [facility] results) [facility], ) NRBC 45 % Above high normal [facility] ([facility], ) Hematology Note: Normal (applies [facility] (St Comments: to non-numeric [facility] results) [facility], ) ID Date Data Source [id number] 12/25/2019 02:47:00 PM EDT [facility] Name Value Range Interpretation Code Description Data Gabby rce(s) Supporting Document(s ) COV2 [facility] This lab was ordered by LISY ramos nd reported by [facility]. Procedure Social History Code Duration Value Status Description Data Source(s ) Smoking 03/18/2020 (-) drugs (-) completed (-) drugs (-) smoke ME DGEN (St 12:00:00 AM EDT smoke 1-2 1-2 tea/day (-) [facility], tea/day (-) ETOH ETOH lives alone PC ) lives alone (with demented MOM) (with demented single-no kids MOM) single-no kids Smoking 03/18/2020 Unknown if ever completed Unknown if ever MEDG EN (St 12:00:00 AM EDT smoked smoked [facility] Me dical, PC) Smoking 02/20/2020 (-) drugs (-) completed (-) drugs (-) smoke ME [facility] (St 12:00:00 AM EDT smoke 1-2 1-2 tea/day (-) [facility], tea/day (-) ETOH ETOH lives alone PC ) lives alone (with demented MOM) (with demented MOM) Smoking 02/20/2020 Unknown if ever completed Unknown if ever MEDG EN (St 12:00:00 AM EDT smoked smoked [facility] Me dical, PC) Vital Signs ID Date Data Source UNK Name Value Range Interpretation Code Description Data Source(s) Body mass index 19.5 kg/m2 19.5 kg/m2 [facility] (S t [facility] (BMI) [Ratio] [facility], ) Diastolic blood 80 mm[Hg] 80 mm[Hg] [facility] (S t [facility] pressure [facility], ) Systolic blood 130 mm[Hg] 130 mm[Hg] [facility] ([facility] pressure [facility], ) Body weight 117 lb 117 lb [facility] ([facility], ) Body height 65 in 65 in [facility] ([facility], ) Body mass index 19.5 kg/m2 19.5 kg/m2 MED[facility] (S t [facility] (BMI) [Ratio] [facility], ) Diastolic blood 80 mm[Hg] 80 mm[Hg] MED[facility] (S t [facility] pressure [facility], ) Systolic blood 132 mm[Hg] 132 mm[Hg] [facility] ([facility] pressure [facility], ) Body weight 117 lb 117 lb MED[facility] ([facility], ) Body height 65 in 65 in MED[facility] ([facility], ) Body mass index 19.5 kg/m2 19.5 kg/m2 MED[facility] (S t [facility] (BMI) [Ratio] [facility], ) Diastolic blood 80 mm[Hg] 80 mm[Hg] MED[facility] (S t [facility] pressure [facility], ) Systolic blood 132 mm[Hg] 132 mm[Hg] [facility] ([facility] pressure [facility], ) Body weight 117 lb 117 lb [facility] ([facility], ) Body height 65 in 65 in [facility] ([facility], PC)
[2020-03-19 11:32] LABS: BASO % 0.9 % (0-2.0); CORRECTED WBC 7.61 K/mm3; EOS % 1.8 % (0-4.5); HEMATOCRIT 15.9 % (32.4-45.2); LYMPH % 11.8 % (8-40); MCHC 36.6 g/dl (32.0-36.0); MEAN CELL VOLUME 114.1 fl (80-96); MEAN PLT VOLUME 8.8 fl (7.5-11.1); MONO % 16.8 % (3.8-10.2); NEUT % 68.7 % (42.8-82.8); PLATELET COUNT 194 K/MM3 (134-434); RBC 1.39 M/mm3 (3.60-5.2); RDW 29.8 % (11.6-15.6); WHITE BLOOD COUNT 8.6 K/mm3 (4.0-10.0)
[2020-03-19 11:55] LABS: ALBUMIN 2.8 g/dl (3.4-5.0); BLOOD UREA NITROGEN 19.1 mg/dL (7-18); CALCIUM 8.3 mg/dL (8.5-10.1); CREATININE 0.9 mg/dL (0.55-1.3); POTASSIUM 4.7 mmol/L (3.5-5.1)
[2020-03-19 12:03] LABS: MCH 41.7 pg (25.7-33.7)
[2020-03-19 12:05] LABS: HEMOGLOBIN 5.8 GM/dL (10.7-15.3)
[2020-03-19 12:09] LABS: BILIRUBIN,TOTAL 10.6 mg/dL (0.2-1)
[2020-03-19 14:04] LABS: ANISOCYTOSIS 2+; MACROCYTOSIS 2+; PLATELET ESTIMATE NORMAL
[2020-03-19 15:45] VITALS: BP 142/74; PULSE 86; TEMP 98.4
== END 2020-03-19 16:37 | disposition home or self-care (01) ==
LOC: JONCBLOOD 10:38
PROVIDERS: ATTEND Internal Medicine Hematology & Oncology
PROC: 30233N1 Transfusion of Nonautologous Red Blood Cells into Peripheral Vein, Percutaneous Approach (ICD-10-PCS; principal; 2020-03-19)
DX: D57.1 Sickle-cell disease without crisis (principal)
CPT/HCPCS: 36415; 36430; 80053; 85025; 86850; 86900; 86901; 86922; P9058

== ENCOUNTER 2020-05-13 07:47 | Day surgery (SDC) | payer OTHER ==
[2020-05-13 10:02] LABS: BASO % 1.2 % (0-2.0); EOS % 4.3 % (0-4.5); HEMATOCRIT 17.5 % (32.4-45.2); LYMPH % 11.7 % (8-40); MCHC 36.5 g/dl (32.0-36.0); MEAN CELL VOLUME 113.8 fl (80-96); MEAN PLT VOLUME 8.7 fl (7.5-11.1); MONO % 15.6 % (3.8-10.2); NEUT % 67.2 % (42.8-82.8); PLATELET COUNT 215 K/MM3 (134-434); RBC 1.54 M/mm3 (3.60-5.2); RDW 29.8 % (11.6-15.6); RETICULOCYTES 7.18 % (0.5-1.5)
[2020-05-13 10:05] LABS: MCH 41.6 pg (25.7-33.7)
[2020-05-13 10:06] LABS: CORRECTED WBC 8.73 K/mm3
[2020-05-13 10:13] LABS: HEMOGLOBIN 6.4 GM/dL (10.7-15.3)
[2020-05-13 10:15] LABS: POTASSIUM 4.9 mmol/L (3.5-5.1)
[2020-05-13 10:19] LABS: ALBUMIN 2.7 g/dl (3.4-5.0); BLOOD UREA NITROGEN 32.7 mg/dL (7-18); MAGNESIUM 1.9 mg/dL (1.8-2.4)
[2020-05-13 10:22] LABS: CREATININE 1.1 mg/dL (0.55-1.3)
[2020-05-13 10:24] LABS: BILIRUBIN,TOTAL 9.3 mg/dL (0.2-1); TOT PROT 8.1 g/dl (6.4-8.2)
[2020-05-13] MEDS ORDERED: oxyCODONE HCL 5 MG TABLET PO PRN (11:43)
[2020-05-13] MEDS ORDERED: FUROSEMIDE 20 MG TABLET (FP) PO ONE (12:00)
[2020-05-13 12:52] LABS: ANISOCYTOSIS 2+; MACROCYTOSIS 1+; OVALOCYTE 1+; PLATELET ESTIMATE NORMAL; SICKELED CELLS 2+
[2020-05-13 15:46] VITALS: PULSE 92
[2020-05-13 15:48] VITALS: BP 123/72; TEMP 98.7
[2020-05-13 17:10] LABS: HEMATOCRIT 21.9 % (32.4-45.2); MCH 39.8 pg (25.7-33.7); MCHC 36.4 g/dl (32.0-36.0); MEAN CELL VOLUME 109.3 fl (80-96); MEAN PLT VOLUME 8.9 fl (7.5-11.1); PLATELET COUNT 207 K/MM3 (134-434); RDW 28.7 % (11.6-15.6); WHITE BLOOD COUNT 7.5 K/mm3 (4.0-10.0)
[2020-05-13 17:42] LABS: CORRECTED WBC 5.14 K/mm3
[2020-05-13 17:43] LABS: ADD RBC MORPHOLOGY YES
[2020-05-13 17:46] LABS: ANISOCYTOSIS 3+; MACROCYTOSIS 3+
[2020-05-13 17:47] LABS: SICKELED CELLS 3+; TARGET CELLS 1+
== END 2020-05-13 17:00 | disposition home or self-care (01) ==
LOC: JONCBLOOD 07:47
PROVIDERS: ATTEND Internal Medicine Hematology & Oncology
PROC: 30233N1 Transfusion of Nonautologous Red Blood Cells into Peripheral Vein, Percutaneous Approach (ICD-10-PCS; principal; 2020-05-13)
DX: D57.1 Sickle-cell disease without crisis (principal)
CPT/HCPCS: 36415; 36430; 80053; 83010; 83615; 83735; 85025; 85045; 86705; 86706; 86803; 86850; 86900; 86901; 86922; 87350; P9058

== ENCOUNTER → 2020-07-09 | Day surgery (SDC) | payer OTHER ==
[~2020-07-09] MED LIST changes: -ACETAMINOPHEN 325 MG TABLET (FP) PO PRN; -BSS (NA/CA/MG/K) BALANCED SALT SOLUTION OPHTH SOLN 15 ML BOTTLE OS ONE; -CHONDROITIN SU A/HYALUR SOD 1 KIT IO ONE; -CYCLOPENTOLATE HCL 1% OPHTH SOLN 2 ML BOTTLE OP SCH; +FUROSEMIDE 20 MG TABLET (FP) PO ONE; -KETOROLAC TROMETHAMINE 0.5% EYE DROP 1 DROP DROPS OP SCH; -LIDOCAINE HCL 1% PRESERVATIVE FREE - 30ML VIAL IO ONE; +MAGNESIUM SULFATE IN WATER 2 GM/50 ML IVPB IVPB ONE; -OFLOXACIN 0.3% OPHTHALMIC SOLUTION 5 ML BOTTLE OP SCH; -PHENYLEPHRINE 2.5% OPHTH SOLN 15 ML BOTTLE OP SCH; -PHENYLEPHRINE/KETOROLAC 4 ML VIAL IO ONE; -TROPICAMIDE 1% OPHTH SOLN 15 ML BOTTLE OP SCH; -TRYPAN BLUE 0.5 ML DISP.SYRIN IO ONE; +traMADol HCL 50 MG TABLET PO PRN
[2020-07-09 13:59] LABS: BASO % 1.2 % (0-2.0); EOS % 2.9 % (0-4.5); HEMATOCRIT 14.9 % (32.4-45.2); LYMPH % 13.8 % (8-40); MCH 40.3 pg (25.7-33.7); MCHC 36.5 g/dl (32.0-36.0); MEAN CELL VOLUME 110.4 fl (80-96); MEAN PLT VOLUME 9.1 fl (7.5-11.1); MONO % 15.3 % (3.8-10.2); NEUT % 66.8 % (42.8-82.8); PLATELET COUNT 238 K/MM3 (134-434); RBC 1.35 M/mm3 (3.60-5.2); RDW 28.8 % (11.6-15.6)
[2020-07-09 14:00] LABS: CORRECTED WBC 10.18 K/mm3; WHITE BLOOD COUNT 11.4 K/mm3 (4.0-10.0)
[2020-07-09 14:01] LABS: HEMOGLOBIN 5.4 GM/dL (10.7-15.3)
[2020-07-09 14:21] LABS: POTASSIUM 4.8 mmol/L (3.5-5.1)
[2020-07-09 14:23] LABS: ALBUMIN 2.9 g/dl (3.4-5.0); BLOOD UREA NITROGEN 28.8 mg/dL (7-18); CALCIUM 8.4 mg/dL (8.5-10.1); MAGNESIUM 1.5 mg/dL (1.8-2.4)
[2020-07-09 14:28] LABS: TOT PROT 8.4 g/dl (6.4-8.2)
[2020-07-09 15:03] LABS: ANISOCYTOSIS 1+; MACROCYTOSIS 1+; PLATELET ESTIMATE NORMAL; SICKELED CELLS 2+
[2020-07-09 18:50] VITALS: BP 123/62; PULSE 85; TEMP 99.2
[2020-07-09 19:47] LABS: HEMATOCRIT 18.6 % (32.4-45.2); MCH 37.5 pg (25.7-33.7); MCHC 35.6 g/dl (32.0-36.0); MEAN CELL VOLUME 105.2 fl (80-96); MEAN PLT VOLUME 8.7 fl (7.5-11.1); PLATELET COUNT 242 K/MM3 (134-434); RBC 1.77 M/mm3 (3.60-5.2); RDW 26.1 % (11.6-15.6); WHITE BLOOD COUNT 9.9 K/mm3 (4.0-10.0)
[2020-07-09 19:54] LABS: HEMOGLOBIN 6.6 GM/dL (10.7-15.3)
== END | disposition home or self-care (01) ==
LOC: JONCBLOOD 08:39
PROVIDERS: ATTEND Internal Medicine Hematology & Oncology
PROC: 30233N1 Transfusion of Nonautologous Red Blood Cells into Peripheral Vein, Percutaneous Approach (ICD-10-PCS; principal; 2020-07-09)
DX: D57.1 Sickle-cell disease without crisis (principal)
CPT/HCPCS: 36415; 36430; 36511; 80053; 83615; 83735; 85025; 85027; 85045; 86850; 86900; 86901; 86922; P9016

== ENCOUNTER 2020-08-20 06:24 | Day surgery (SDC) | payer OTHER ==
[2020-08-20 13:08] LABS: BASO % 0.7 % (0-2.0); EOS % 1.9 % (0-4.5); HEMATOCRIT 15.1 % (32.4-45.2); LYMPH % 9.4 % (8-40); MCH 40.6 pg (25.7-33.7); MCHC 36.9 g/dl (32.0-36.0); MEAN PLT VOLUME 8.8 fl (7.5-11.1); MONO % 19.4 % (3.8-10.2); NEUT % 68.6 % (42.8-82.8); PLATELET COUNT 197 K/MM3 (134-434); RBC 1.37 M/mm3 (3.60-5.2); RDW 28.9 % (11.6-15.6); RETICULOCYTES 6.11 % (0.5-1.5); WHITE BLOOD COUNT 13.1 K/mm3 (4.0-10.0)
[2020-08-20 13:12] LABS: HEMOGLOBIN 5.6 GM/dL (10.7-15.3)
[2020-08-20] MEDS ORDERED: traMADol HCL 50 MG TABLET PO PRN (13:26)
[2020-08-20 13:27] LABS: POTASSIUM 4.7 mmol/L (3.5-5.1)
[2020-08-20 13:30] LABS: ALBUMIN 2.9 g/dl (3.4-5.0); BLOOD UREA NITROGEN 26.9 mg/dL (7-18); CALCIUM 8.8 mg/dL (8.5-10.1); MAGNESIUM 1.7 mg/dL (1.8-2.4)
[2020-08-20 13:33] LABS: CREATININE 1.1 mg/dL (0.55-1.3)
[2020-08-20 13:34] LABS: BILIRUBIN,TOTAL 13.8 mg/dL (0.2-1); TOT PROT 8.2 g/dl (6.4-8.2)
[2020-08-20 15:22] LABS: ANISOCYTOSIS 2+; MACROCYTOSIS 2+; OVALOCYTE 2+; PLATELET ESTIMATE NORMAL; SICKELED CELLS 3+; TEAR DROP CELLS 1+
[2020-08-20 18:34] VITALS: BP 132/87; PULSE 87; TEMP 98.4
[2020-08-20 19:36] LABS: HEMATOCRIT 20.5 % (32.4-45.2); HEMOGLOBIN 7.1 GM/dL (10.7-15.3); MCH 36.6 pg (25.7-33.7); MCHC 34.5 g/dl (32.0-36.0); MEAN CELL VOLUME 106.3 fl (80-96); MEAN PLT VOLUME 9.9 fl (7.5-11.1); PLATELET COUNT 197 K/MM3 (134-434); RBC 1.93 M/mm3 (3.60-5.2); RDW 26.3 % (11.6-15.6); WHITE BLOOD COUNT 12.3 K/mm3 (4.0-10.0)
== END 2020-08-20 19:00 | disposition home or self-care (01) ==
LOC: JONCBLOOD 06:24
PROVIDERS: ATTEND Internal Medicine Hematology & Oncology
PROC: 30233N1 Transfusion of Nonautologous Red Blood Cells into Peripheral Vein, Percutaneous Approach (ICD-10-PCS; principal; 2020-08-20)
DX: D57.1 Sickle-cell disease without crisis (principal)
CPT/HCPCS: 36415; 36430; 80053; 82728; 83540; 83550; 83615; 83735; 85025; 85027; 85045; 86850; 86900; 86901; 86922; P9058

== ENCOUNTER 2020-09-10 07:37 | Day surgery (SDC) | payer OTHER ==
[2020-09-10 10:49] LABS: BASO % 1.6 % (0-2.0); EOS % 3.4 % (0-4.5); HEMATOCRIT 17.3 % (32.4-45.2); LYMPH % 11.6 % (8-40); MCH 37.6 pg (25.7-33.7); MCHC 35.5 g/dl (32.0-36.0); MEAN PLT VOLUME 8.9 fl (7.5-11.1); MONO % 16.2 % (3.8-10.2); NEUT % 67.2 % (42.8-82.8); PLATELET COUNT 267 K/MM3 (134-434); RBC 1.63 M/mm3 (3.60-5.2); RDW 27.1 % (11.6-15.6); WHITE BLOOD COUNT 9.4 K/mm3 (4.0-10.0)
[2020-09-10 10:59] LABS: HEMOGLOBIN 6.1 GM/dL (10.7-15.3)
[2020-09-10 11:03] LABS: POTASSIUM 4.6 mmol/L (3.5-5.1)
[2020-09-10 11:06] LABS: ALBUMIN 2.8 g/dl (3.4-5.0); BLOOD UREA NITROGEN 23.5 mg/dL (7-18); MAGNESIUM 1.8 mg/dL (1.8-2.4)
[2020-09-10 11:08] LABS: CREATININE 0.9 mg/dL (0.55-1.3)
[2020-09-10 11:09] LABS: BILIRUBIN,TOTAL 6.8 mg/dL (0.2-1)
[2020-09-10 11:43] LABS: ANISOCYTOSIS 2+; MACROCYTOSIS 2+; OVALOCYTE 1+; PLATELET ESTIMATE NORMAL; SICKELED CELLS 1+; TARGET CELLS 2+
[2020-09-10 17:34] VITALS: BP 130/81; PULSE 78; TEMP 98
[2020-09-10 18:16] LABS: HEMATOCRIT 21.7 % (32.4-45.2); HEMOGLOBIN 7.8 GM/dL (10.7-15.3); MCHC 35.8 g/dl (32.0-36.0); MEAN CELL VOLUME 103.5 fl (80-96); MEAN PLT VOLUME 9.5 fl (7.5-11.1); PLATELET COUNT 256 K/MM3 (134-434); RBC 2.09 M/mm3 (3.60-5.2); RDW 23.4 % (11.6-15.6)
[2020-09-10 20:36] LABS: CORRECTED WBC 7.89 K/mm3; PLATELET ESTIMATE ADEQUATE
[2020-09-10 20:37] LABS: ANISOCYTOSIS 2+; MACROCYTOSIS 2+; OVALOCYTE 1+; SICKELED CELLS 2+; TARGET CELLS 1+
== END 2020-09-10 17:50 | disposition home or self-care (01) ==
LOC: JONCBLOOD 07:37
PROVIDERS: ATTEND Internal Medicine Hematology & Oncology
PROC: 30233N1 Transfusion of Nonautologous Red Blood Cells into Peripheral Vein, Percutaneous Approach (ICD-10-PCS; principal; 2020-09-10)
DX: D57.1 Sickle-cell disease without crisis (principal)
CPT/HCPCS: 36415; 36430; 80053; 83735; 85025; 86850; 86900; 86901; 86922; P9058

== ENCOUNTER 2020-10-05 07:20 | Day surgery (SDC) | payer OTHER ==
[2020-10-05 12:14] LABS: ALBUMIN 3.2 g/dl (3.4-5.0); BLOOD UREA NITROGEN 18.5 mg/dL (7-18); CALCIUM 8.9 mg/dL (8.5-10.1); MAGNESIUM 1.7 mg/dL (1.8-2.4)
[2020-10-05 12:15] LABS: BASO % 0.9 % (0-2.0); EOS % 4.1 % (0-4.5); HEMATOCRIT 17.6 % (32.4-45.2); LYMPH % 13.3 % (8-40); MCH 37.3 pg (25.7-33.7); MCHC 36.7 g/dl (32.0-36.0); MEAN CELL VOLUME 101.6 fl (80-96); MEAN PLT VOLUME 9.3 fl (7.5-11.1); MONO % 13.8 % (3.8-10.2); NEUT % 67.9 % (42.8-82.8); PLATELET COUNT 300 K/MM3 (134-434); RBC 1.74 M/mm3 (3.60-5.2); RDW 25.8 % (11.6-15.6)
[2020-10-05 12:17] LABS: CREATININE 0.9 mg/dL (0.55-1.3); HEMOGLOBIN 6.5 GM/dL (10.7-15.3)
[2020-10-05 12:19] LABS: BILIRUBIN,TOTAL 6.3 mg/dL (0.2-1); TOT PROT 8.3 g/dl (6.4-8.2)
[2020-10-05 16:00] VITALS: TEMP 97.8
[2020-10-05 17:15] LABS: BASO % 0.7 % (0-2.0); EOS % 4.4 % (0-4.5); HEMATOCRIT 21.6 % (32.4-45.2); HEMOGLOBIN 7.5 GM/dL (10.7-15.3); LYMPH % 13.5 % (8-40); MCH 34.8 pg (25.7-33.7); MEAN CELL VOLUME 99.5 fl (80-96); MEAN PLT VOLUME 8.9 fl (7.5-11.1); MONO % 15.1 % (3.8-10.2); NEUT % 66.3 % (42.8-82.8); PLATELET COUNT 280 K/MM3 (134-434); RBC 2.17 M/mm3 (3.60-5.2); RDW 22.4 % (11.6-15.6); WHITE BLOOD COUNT 8.7 K/mm3 (4.0-10.0)
[2020-10-05 17:19] VITALS: BP 110/62; PULSE 76
== END 2020-10-05 17:21 | disposition home or self-care (01) ==
LOC: JONCBLOOD 07:20
PROVIDERS: ATTEND Internal Medicine Hematology & Oncology
PROC: 30233N1 Transfusion of Nonautologous Red Blood Cells into Peripheral Vein, Percutaneous Approach (ICD-10-PCS; principal; 2020-10-05)
DX: D57.1 Sickle-cell disease without crisis (principal)
CPT/HCPCS: 36415; 36430; 80053; 83735; 85025; 86850; 86900; 86901; 86922; P9058

== ENCOUNTER 2020-11-03 08:15 | Day surgery (SDC) | payer OTHER ==
[2020-11-03 09:51] LABS: EOS % 2.8 % (0-4.5); HEMATOCRIT 16.9 % (32.4-45.2); MCH 36.9 pg (25.7-33.7); MCHC 36.7 g/dl (32.0-36.0); MEAN CELL VOLUME 100.6 fl (80-96); MEAN PLT VOLUME 9.1 fl (7.5-11.1); MONO % 13.3 % (3.8-10.2); NEUT % 72.9 % (42.8-82.8); PLATELET COUNT 276 K/MM3 (134-434); RBC 1.68 M/mm3 (3.60-5.2); RDW 24.6 % (11.6-15.6); WHITE BLOOD COUNT 9.1 K/mm3 (4.0-10.0)
[2020-11-03 10:06] LABS: HEMOGLOBIN 6.2 GM/dL (10.7-15.3)
[2020-11-03 10:11] LABS: CALCIUM 9.1 mg/dL (8.5-10.1)
[2020-11-03 10:12] LABS: ALBUMIN 3.5 g/dl (3.4-5.0); BLOOD UREA NITROGEN 26.8 mg/dL (7-18); MAGNESIUM 1.9 mg/dL (1.8-2.4)
[2020-11-03 10:17] LABS: BILIRUBIN,TOTAL 6.2 mg/dL (0.2-1); TOT PROT 8.5 g/dl (6.4-8.2)
[2020-11-03 12:42] LABS: ANISOCYTOSIS 2+; MACROCYTOSIS 2+; PLATELET ESTIMATE NORMAL; SICKELED CELLS 2+
[2020-11-03] MEDS ORDERED: POTASSIUM CHLORIDE TABS 20 MEQ TABLET.ER (FP) PO ONE (14:30)
[2020-11-03] MEDS ORDERED: FUROSEMIDE 40 MG/4 ML INJECTABLE VIAL IVPUSH ONE (14:30)
[2020-11-03 15:55] VITALS: BP 119/71; PULSE 84; TEMP 98.4
== END 2020-11-03 15:40 | disposition home or self-care (01) ==
LOC: JONCBLOOD 08:15
PROVIDERS: ATTEND Internal Medicine Hematology & Oncology
PROC: 30233N1 Transfusion of Nonautologous Red Blood Cells into Peripheral Vein, Percutaneous Approach (ICD-10-PCS; principal; 2020-11-03)
DX: D57.1 Sickle-cell disease without crisis (principal)
CPT/HCPCS: 36415; 36430; 80053; 83735; 85025; 86850; 86900; 86901; 86922; P9058

== ENCOUNTER 2020-12-17 07:08 | Day surgery (SDC) | payer OTHER ==
[2020-12-17 09:28] LABS: BASO % 1.5 % (0-2.0); EOS % 4.3 % (0-4.5); HEMATOCRIT 15.7 % (32.4-45.2); LYMPH % 15.6 % (8-40); MCH 37.6 pg (25.7-33.7); MCHC 36.9 g/dl (32.0-36.0); MEAN CELL VOLUME 101.8 fl (80-96); MONO % 14.1 % (3.8-10.2); NEUT % 64.5 % (42.8-82.8); PLATELET COUNT 235 10^3/uL (134-434); RBC 1.54 M/mm3 (3.60-5.2); RDW 33.8 % (11.6-15.6); WHITE BLOOD COUNT 7.4 K/mm3 (4.0-10.0)
[2020-12-17 09:32] LABS: HEMOGLOBIN 5.8 GM/dL (10.7-15.3)
[2020-12-17 09:58] LABS: ALBUMIN 3.2 g/dl (3.4-5.0); BLOOD UREA NITROGEN 35.4 mg/dL (7-18); CALCIUM 8.7 mg/dL (8.5-10.1); CALCIUM 8.8 mg/dL (8.5-10.1)
[2020-12-17 09:59] LABS: BLOOD UREA NITROGEN 32.3 mg/dL (7-18); MAGNESIUM 1.8 mg/dL (1.8-2.4)
[2020-12-17 10:00] LABS: ALBUMIN 3.1 g/dl (3.4-5.0)
[2020-12-17] MEDS ORDERED: traMADol HCL 50 MG TABLET PO PRN (10:00)
[2020-12-17] MEDS ORDERED: FUROSEMIDE 20 MG TABLET (FP) PO ONE (10:00)
[2020-12-17 10:02] LABS: BILIRUBIN,TOTAL 6.1 mg/dL (0.2-1); CREATININE 1.2 mg/dL (0.55-1.3)
[2020-12-17 10:03] LABS: TOT PROT 7.5 g/dl (6.4-8.2)
[2020-12-17 10:05] LABS: TOT PROT 7.5 g/dl (6.4-8.2)
[2020-12-17 15:32] LABS: HEMATOCRIT 19.9 % (32.4-45.2); HEMOGLOBIN 7.3 GM/dL (10.7-15.3); MCH 35.2 pg (25.7-33.7); MCHC 36.6 g/dl (32.0-36.0); MEAN CELL VOLUME 96.2 fl (80-96); MEAN PLT VOLUME 8.9 fl (7.5-11.1); PLATELET COUNT 242 10^3/uL (134-434); RBC 2.06 M/mm3 (3.60-5.2); RDW 31.8 % (11.6-15.6); WHITE BLOOD COUNT 7.6 K/mm3 (4.0-10.0)
[2020-12-17 16:01] VITALS: BP 115/55; PULSE 84; TEMP 98.7
== END 2020-12-17 14:20 | disposition home or self-care (01) ==
LOC: JONCBLOOD 07:08
PROVIDERS: ATTEND Internal Medicine Hematology & Oncology
PROC: 30233N1 Transfusion of Nonautologous Red Blood Cells into Peripheral Vein, Percutaneous Approach (ICD-10-PCS; principal; 2020-12-17)
DX: D57.1 Sickle-cell disease without crisis (principal)
CPT/HCPCS: 36415; 36430; 80048; 80053; 80076; 82306; 82728; 83540; 83550; 83615; 83735; 85025; 85027; 85045; 86850; 86900; 86901; 86922; P9058

== ENCOUNTER 2021-01-11 07:18 | Day surgery (SDC) | payer OTHER ==
[2021-01-11 11:22] LABS: BASO % 0.2 % (0-2.0); HEMATOCRIT 15.6 % (32.4-45.2); LYMPH % 4.4 % (8-40); MCHC 37.6 g/dl (32.0-36.0); MEAN CELL VOLUME 95.7 fl (80-96); MEAN PLT VOLUME 9.1 fl (7.5-11.1); MONO % 9.3 % (3.8-10.2); NEUT % 86.1 % (42.8-82.8); PLATELET COUNT 203 10^3/uL (134-434); RBC 1.63 M/mm3 (3.60-5.2); RDW 38.4 % (11.6-15.6); WHITE BLOOD COUNT 9.1 K/mm3 (4.0-10.0)
[2021-01-11 11:25] LABS: HEMOGLOBIN 5.8 GM/dL (10.7-15.3)
[2021-01-11 11:44] LABS: BLOOD UREA NITROGEN 41.1 mg/dL (7-18)
[2021-01-11 11:45] LABS: ALBUMIN 3.2 g/dl (3.4-5.0); MAGNESIUM 1.9 mg/dL (1.8-2.4)
[2021-01-11 11:48] LABS: CREATININE 1.3 mg/dL (0.55-1.3)
[2021-01-11] MEDS ORDERED: traMADol HCL 50 MG TABLET PO PRN (12:59)
[2021-01-11 18:53] VITALS: BP 144/67; PULSE 77; TEMP 97.9
== END 2021-01-11 18:00 | disposition home or self-care (01) ==
LOC: JONCBLOOD 07:18
PROVIDERS: ATTEND Internal Medicine Hematology & Oncology
PROC: 30233N1 Transfusion of Nonautologous Red Blood Cells into Peripheral Vein, Percutaneous Approach (ICD-10-PCS; principal; 2021-01-11)
DX: D57.1 Sickle-cell disease without crisis (principal)
CPT/HCPCS: 36415; 36430; 36511; 80053; 82248; 83735; 85025; 86850; 86900; 86901; 86922; P9016

== ENCOUNTER 2021-01-28 06:52 | Day surgery (SDC) | payer OTHER ==
[2021-01-28 12:30] LABS: HEMATOCRIT 14.1 % (32.4-45.2); MCHC 35.6 g/dl (32.0-36.0); MEAN CELL VOLUME 92.5 fl (80-96); MEAN PLT VOLUME 9.9 fl (7.5-11.1); PLATELET COUNT 243 10^3/uL (134-434); RBC 1.52 M/mm3 (3.60-5.2); RDW 28.5 % (11.6-15.6); RETICULOCYTES 5.77 % (0.5-1.5); WHITE BLOOD COUNT 7.9 K/mm3 (4.0-10.0)
[2021-01-28 12:54] LABS: CALCIUM 9.2 mg/dL (8.5-10.1)
[2021-01-28 12:55] LABS: ALBUMIN 3.2 g/dl (3.4-5.0); BLOOD UREA NITROGEN 39.3 mg/dL (7-18)
[2021-01-28 12:57] LABS: BILIRUBIN,DIRECT 5.5 mg/dL (0.0-0.2)
[2021-01-28 12:58] LABS: CREATININE 1.9 mg/dL (0.55-1.3)
[2021-01-28 12:59] LABS: TOT PROT 7.4 g/dl (6.4-8.2)
[2021-01-28 13:11] LABS: ANISOCYTOSIS 2+; MACROCYTOSIS 2+; PLATELET ESTIMATE INCREASED; TARGET CELLS 1+; TEAR DROP CELLS 1+
[2021-01-28 17:02] VITALS: BP 101/32; PULSE 77; TEMP 97.9
== END 2021-01-28 16:45 | disposition home or self-care (01) ==
LOC: JONCBLOOD 06:52
PROVIDERS: ATTEND Internal Medicine Hematology & Oncology
PROC: 30233N1 Transfusion of Nonautologous Red Blood Cells into Peripheral Vein, Percutaneous Approach (ICD-10-PCS; principal; 2021-01-28)
DX: D57.1 Sickle-cell disease without crisis (principal)
CPT/HCPCS: 36415; 36430; 36511; 80053; 80076; 82306; 82607; 82728; 83540; 83550; 84443; 85025; 85045; 86850; 86900; 86901; 86922; P9016; P9038

== ENCOUNTER 2021-02-03 07:11 | Day surgery (SDC) | payer OTHER ==
[2021-02-03 12:18] LABS: BASO % 1.1 % (0-2.0); EOS % 3.2 % (0-4.5); HEMATOCRIT 17.4 % (32.4-45.2); MCH 29.8 pg (25.7-33.7); MCHC 34.8 g/dl (32.0-36.0); MEAN CELL VOLUME 85.7 fl (80-96); MEAN PLT VOLUME 9.2 fl (7.5-11.1); MONO % 11.7 % (3.8-10.2); PLATELET COUNT 294 10^3/uL (134-434); RBC 2.03 M/mm3 (3.60-5.2); RDW 27.6 % (11.6-15.6); WHITE BLOOD COUNT 7.6 K/mm3 (4.0-10.0)
[2021-02-03 12:32] LABS: HEMOGLOBIN 6.1 GM/dL (10.7-15.3)
[2021-02-03 12:36] LABS: ALBUMIN 3.2 g/dl (3.4-5.0); BLOOD UREA NITROGEN 42.9 mg/dL (7-18); CALCIUM 9.1 mg/dL (8.5-10.1)
[2021-02-03 12:37] LABS: MAGNESIUM 1.6 mg/dL (1.8-2.4)
[2021-02-03 12:41] LABS: CREATININE 1.2 mg/dL (0.55-1.3)
[2021-02-03 12:42] LABS: BILIRUBIN,TOTAL 7.2 mg/dL (0.2-1); TOT PROT 7.3 g/dl (6.4-8.2)
[2021-02-03 13:23] LABS: ANISOCYTOSIS 3+; MACROCYTOSIS 0; PLATELET ESTIMATE NORMAL; SICKELED CELLS 1+; TARGET CELLS 2+; TEAR DROP CELLS 1+
[2021-02-03 18:17] VITALS: BP 107/53; PULSE 66; TEMP 98.6
[2021-02-03 19:14] LABS: BASO % 1.9 % (0-2.0); EOS % 2.4 % (0-4.5); HEMATOCRIT 21.2 % (32.4-45.2); HEMOGLOBIN 7.3 GM/dL (10.7-15.3); LYMPH % 17.8 % (8-40); MCH 28.3 pg (25.7-33.7); MCHC 34.6 g/dl (32.0-36.0); MEAN CELL VOLUME 81.8 fl (80-96); MEAN PLT VOLUME 9.2 fl (7.5-11.1); MONO % 14.3 % (3.8-10.2); NEUT % 63.6 % (42.8-82.8); PLATELET COUNT 247 10^3/uL (134-434); RDW 22.7 % (11.6-15.6); WHITE BLOOD COUNT 6.8 K/mm3 (4.0-10.0)
== END 2021-02-03 18:30 | disposition home or self-care (01) ==
LOC: JONCBLOOD 07:11
PROVIDERS: ATTEND Internal Medicine Hematology & Oncology
PROC: 30233N1 Transfusion of Nonautologous Red Blood Cells into Peripheral Vein, Percutaneous Approach (ICD-10-PCS; principal; 2021-02-03)
DX: D57.1 Sickle-cell disease without crisis (principal)
CPT/HCPCS: 36415; 36430; 36511; 80053; 83735; 85025; 86850; 86900; 86901; 86922; P9038; P9058

== ENCOUNTER 2021-03-14 07:41 | Day surgery (SDC) | payer OTHER ==
[2021-03-14] MEDS ORDERED: traMADol HCL 50 MG TABLET PO PRN (10:23)
[2021-03-14 10:43] LABS: BASO % 1.2 % (0-2.0); EOS % 3.9 % (0-4.5); HEMATOCRIT 18.1 % (32.4-45.2); LYMPH % 13.3 % (8-40); MCH 32.6 pg (25.7-33.7); MCHC 36.8 g/dl (32.0-36.0); MEAN CELL VOLUME 88.6 fl (80-96); MONO % 16.9 % (3.8-10.2); NEUT % 64.7 % (42.8-82.8); PLATELET COUNT 240 10^3/uL (134-434); RBC 2.04 M/mm3 (3.60-5.2); RDW 39.7 % (11.6-15.6); RETICULOCYTES 8.91 % (0.5-1.5); WHITE BLOOD COUNT 7.9 K/mm3 (4.0-10.0)
[2021-03-14 10:45] LABS: HEMOGLOBIN 6.7 GM/dL (10.7-15.3)
[2021-03-14 11:00] LABS: CALCIUM 8.9 mg/dL (8.5-10.1)
[2021-03-14 11:01] LABS: ALBUMIN 3.1 g/dl (3.4-5.0); BLOOD UREA NITROGEN 18.3 mg/dL (7-18)
[2021-03-14 11:05] LABS: TOT PROT 7.1 g/dl (6.4-8.2)
[2021-03-14 15:49] VITALS: BP 145/65; PULSE 71; TEMP 99
[2021-03-14 17:19] LABS: BASO % 1.2 % (0-2.0); EOS % 4.3 % (0-4.5); HEMATOCRIT 20.7 % (32.4-45.2); HEMOGLOBIN 7.4 GM/dL (10.7-15.3); MCHC 35.9 g/dl (32.0-36.0); MEAN PLT VOLUME 8.9 fl (7.5-11.1); MONO % 20.1 % (3.8-10.2); NEUT % 52.4 % (42.8-82.8); PLATELET COUNT 206 10^3/uL (134-434); RBC 2.33 M/mm3 (3.60-5.2); RDW 36.4 % (11.6-15.6); WHITE BLOOD COUNT 7.7 K/mm3 (4.0-10.0)
[2021-03-14 18:09] LABS: ANISOCYTOSIS 3+; MACROCYTOSIS 1+; PLATELET ESTIMATE NORMAL; TARGET CELLS 1+
== END 2021-03-14 16:59 | disposition home or self-care (01) ==
LOC: JONCBLOOD 07:41
PROVIDERS: ATTEND Internal Medicine Hematology & Oncology
PROC: 30233N1 Transfusion of Nonautologous Red Blood Cells into Peripheral Vein, Percutaneous Approach (ICD-10-PCS; principal; 2021-03-14)
DX: D57.1 Sickle-cell disease without crisis (principal)
CPT/HCPCS: 36415; 36430; 80053; 82728; 83540; 83550; 83615; 85025; 85045; 86850; 86900; 86901; 86922; P9058

== ENCOUNTER 2021-04-04 07:02 | Day surgery (SDC) | payer OTHER ==
[2021-04-04 10:07] LABS: BASO % 1.2 % (0-2.0); HEMATOCRIT 15.8 % (32.4-45.2); LYMPH % 14.6 % (8-40); MCH 32.3 pg (25.7-33.7); MCHC 35.8 g/dl (32.0-36.0); MEAN CELL VOLUME 90.3 fl (80-96); MEAN PLT VOLUME 8.6 fl (7.5-11.1); NEUT % 64.2 % (42.8-82.8); PLATELET COUNT 268 10^3/uL (134-434); RBC 1.75 M/mm3 (3.60-5.2); RDW 36.5 % (11.6-15.6); WHITE BLOOD COUNT 8.9 K/mm3 (4.0-10.0)
[2021-04-04 10:12] LABS: HEMOGLOBIN 5.7 GM/dL (10.7-15.3)
[2021-04-04] MEDS ORDERED: traMADol HCL 50 MG TABLET PO PRN (11:55)
[2021-04-04 15:57] LABS: MCH 31.9 pg (25.7-33.7); MCHC 35.7 g/dl (32.0-36.0); MEAN CELL VOLUME 89.4 fl (80-96); MEAN PLT VOLUME 8.8 fl (7.5-11.1); PLATELET COUNT 253 10^3/uL (134-434); RBC 2.12 M/mm3 (3.60-5.2)
[2021-04-04 16:06] VITALS: BP 127/47; PULSE 81; TEMP 98.3
[2021-04-04 16:20] LABS: WHITE BLOOD COUNT 8.6 K/mm3 (4.0-10.0)
[2021-04-04 17:07] LABS: HEMOGLOBIN 6.8 GM/dL (10.7-15.3)
== END 2021-04-04 15:30 | disposition home or self-care (01) ==
LOC: JONCBLOOD 07:02
PROVIDERS: ATTEND Internal Medicine Hematology & Oncology
PROC: 30233N1 Transfusion of Nonautologous Red Blood Cells into Peripheral Vein, Percutaneous Approach (ICD-10-PCS; principal; 2021-04-04)
DX: D57.1 Sickle-cell disease without crisis (principal)
CPT/HCPCS: 36415; 36430; 85025; 85027; 86850; 86900; 86901; 86922; P9058

== ENCOUNTER 2021-04-12 07:22 | Day surgery (SDC) | payer OTHER ==
[2021-04-12 10:04] LABS: BASO % 1.1 % (0-2.0); EOS % 4.3 % (0-4.5); HEMATOCRIT 17.1 % (32.4-45.2); LYMPH % 18.6 % (8-40); MCHC 35.7 g/dl (32.0-36.0); MEAN CELL VOLUME 89.6 fl (80-96); MEAN PLT VOLUME 9.1 fl (7.5-11.1); MONO % 17.8 % (3.8-10.2); NEUT % 58.2 % (42.8-82.8); PLATELET COUNT 186 10^3/uL (134-434); RBC 1.91 M/mm3 (3.60-5.2); RDW 28.9 % (11.6-15.6); RETICULOCYTES 3.58 % (0.5-1.5); WHITE BLOOD COUNT 8.1 K/mm3 (4.0-10.0)
[2021-04-12 10:11] LABS: HEMOGLOBIN 6.1 GM/dL (10.7-15.3)
[2021-04-12 10:24] LABS: BLOOD UREA NITROGEN 21.8 mg/dL (7-18); CALCIUM 8.9 mg/dL (8.5-10.1); MAGNESIUM 1.5 mg/dL (1.8-2.4)
[2021-04-12 10:29] LABS: BILIRUBIN,TOTAL 6.3 mg/dL (0.2-1)
[2021-04-12 11:39] LABS: ANISOCYTOSIS 2+; MACROCYTOSIS 2+; PLATELET ESTIMATE NORMAL; SICKELED CELLS 3+
[2021-04-12] MEDS ORDERED: MAGNESIUM 2GM/50ML STERILE WATER IVPB IVPB ONE (12:15)
[2021-04-12] MEDS ORDERED: traMADol HCL 50 MG TABLET PO ONE (13:00)
[2021-04-12 18:42] LABS: HEMATOCRIT 21.6 % (32.4-45.2); HEMOGLOBIN 7.7 GM/dL (10.7-15.3); MCH 32.6 pg (25.7-33.7); MCHC 35.7 g/dl (32.0-36.0); MEAN CELL VOLUME 91.4 fl (80-96); MEAN PLT VOLUME 9.4 fl (7.5-11.1); PLATELET COUNT 181 10^3/uL (134-434); RBC 2.36 M/mm3 (3.60-5.2); RDW 25.5 % (11.6-15.6); WHITE BLOOD COUNT 8.9 K/mm3 (4.0-10.0)
[2021-04-12 19:02] VITALS: BP 132/64; PULSE 18; TEMP 98
== END 2021-04-12 18:00 | disposition home or self-care (01) ==
LOC: JONCBLOOD 07:22
PROVIDERS: ATTEND Internal Medicine Hematology & Oncology
PROC: 30233N1 Transfusion of Nonautologous Red Blood Cells into Peripheral Vein, Percutaneous Approach (ICD-10-PCS; principal; 2021-04-12)
DX: D57.1 Sickle-cell disease without crisis (principal)
CPT/HCPCS: 36415; 36430; 80053; 83615; 83735; 85025; 85027; 85045; 86850; 86900; 86901; 86922; P9058

== ENCOUNTER 2021-07-27 08:20 | Day surgery (SDC) | payer OTHER ==
[2021-07-27 10:03] LABS: HEMATOCRIT 14.8 % (32.4-45.2); MCHC 36.1 g/dl (32.0-36.0); MEAN CELL VOLUME 118.9 fl (80-96); MEAN PLT VOLUME 9.5 fl (7.5-11.1); PLATELET COUNT 189 10^3/uL (134-434); RBC 1.25 M/mm3 (3.60-5.2); RDW 26.1 % (11.6-15.6); RETICULOCYTES 13.26 % (0.5-1.5); WHITE BLOOD COUNT 12.3 K/mm3 (4.0-10.0)
[2021-07-27 10:15] LABS: MAGNESIUM 1.5 mg/dL (1.8-2.4)
[2021-07-27 10:19] LABS: HEMOGLOBIN 5.4 GM/dL (10.7-15.3)
[2021-07-27] MEDS ORDERED: FUROSEMIDE 20 MG TABLET (FP) PO ONE (10:45)
[2021-07-27] MEDS ORDERED: POTASSIUM CHLORIDE TABS 20 MEQ TABLET.ER (FP) PO ONE (10:45)
[2021-07-27 11:02] LABS: ANISOCYTOSIS 2+; MACROCYTOSIS 2+
[2021-07-27 11:03] LABS: PLATELET ESTIMATE NORMAL; SICKELED CELLS 2+
[2021-07-27 11:04] LABS: CORRECTED WBC 9.39 K/mm3
[2021-07-27] MEDS ORDERED: traMADol HCL 50 MG TABLET PO PRN (11:10)
[2021-07-27 13:52] LABS: CALCIUM 8.7 mg/dL (8.5-10.1); CREATININE 1.3 mg/dL (0.55-1.3); TOT PROT 7.9 g/dl (6.4-8.2)
[2021-07-27 13:56] LABS: IRON SERUM 232 ug/dL (50-175); TOTAL IRON BINDING CAPACITY 333 ug/dL (250-450)
[2021-07-27 16:13] VITALS: BP 121/60; PULSE 87; TEMP 98.5
[2021-07-27 16:32] LABS: HEMATOCRIT 17.9 % (32.4-45.2); MCH 38.8 pg (25.7-33.7); MEAN CELL VOLUME 107.7 fl (80-96); MEAN PLT VOLUME 9.5 fl (7.5-11.1); PLATELET COUNT 168 10^3/uL (134-434); RBC 1.66 M/mm3 (3.60-5.2); RDW 29.6 % (11.6-15.6)
[2021-07-27 16:38] LABS: HEMOGLOBIN 6.4 GM/dL (10.7-15.3)
== END 2021-07-27 16:58 | disposition home or self-care (01) ==
LOC: JONCBLOOD 08:20
PROVIDERS: ATTEND Internal Medicine Hematology & Oncology
PROC: 30233H1 Transfusion of Nonautologous Whole Blood into Peripheral Vein, Percutaneous Approach (ICD-10-PCS; principal; 2021-07-27)
DX: D57.1 Sickle-cell disease without crisis (principal)
CPT/HCPCS: 36415; 36430; 80053; 82306; 82607; 82728; 83540; 83550; 83615; 83735; 85025; 85027; 85045; 86850; 86900; 86901; 86922; P9058

== ENCOUNTER 2021-07-29 07:36 | Day surgery (SDC) | payer OTHER ==
[2021-07-29] MEDS ORDERED: traMADol HCL 50 MG TABLET PO PRN (11:55)
[2021-07-29] MEDS ORDERED: POTASSIUM CHLORIDE TABS 20 MEQ TABLET.ER (FP) PO ONE (12:00)
[2021-07-29] MEDS ORDERED: FUROSEMIDE 20 MG TABLET (FP) PO ONE (12:00)
[2021-07-29 15:18] LABS: HEMATOCRIT 21.8 % (32.4-45.2); HEMOGLOBIN 8.1 GM/dL (10.7-15.3); MCH 37.8 pg (25.7-33.7); MCHC 37.3 g/dl (32.0-36.0); MEAN CELL VOLUME 101.5 fl (80-96); MEAN PLT VOLUME 8.8 fl (7.5-11.1); PLATELET COUNT 165 10^3/uL (134-434); RBC 2.15 M/mm3 (3.60-5.2); RDW 29.6 % (11.6-15.6)
[2021-07-29 16:11] LABS: ANISOCYTOSIS 2+; MACROCYTOSIS 2+; OVALOCYTE 2+; PLATELET ESTIMATE NORMAL
[2021-07-29 16:13] LABS: CORRECTED WBC 8.02 K/mm3; WHITE BLOOD COUNT 9.7 K/mm3 (4.0-10.0)
[2021-07-29 16:24] VITALS: BP 137/75; PULSE 82; TEMP 98.2
== END 2021-07-29 15:40 | disposition home or self-care (01) ==
LOC: JONCBLOOD 07:36
PROVIDERS: ATTEND Internal Medicine Hematology & Oncology
PROC: 30233H1 Transfusion of Nonautologous Whole Blood into Peripheral Vein, Percutaneous Approach (ICD-10-PCS; principal; 2021-07-29)
DX: D57.1 Sickle-cell disease without crisis (principal)
CPT/HCPCS: 36415; 36430; 85027

== ENCOUNTER 2021-09-16 11:54 | Emergency (ER) | payer OTHER ==
[2021-09-16 12:03] VITALS: BP 95/65; PULSE 94; TEMP 97.9; BMI 20.5
[2021-09-16] MEDS ORDERED: LIDOCAINE 5% TOPICAL PATCH TP ONE (13:56)
[2021-09-16] MEDS ORDERED: LIDOCAINE 5% TOPICAL PATCH ONE (14:01)
[2021-09-16] MEDS ORDERED: KETOROLAC TROMETHAMINE 30 MG/1 ML VIAL IM ONE (14:54)
[2021-09-16] MEDS ORDERED: KETOROLAC TROMETHAMINE 30 MG/1 ML VIAL ONE (15:04)
[2021-09-16] MEDS ORDERED: LIDOCAINE PATCH REMOVAL MC ONE (22:00)
== END 2021-09-16 15:14 | disposition home or self-care (01) ==
LOC: JERFT 11:54
PROC: 3E023GC Introduction of Other Therapeutic Substance into Muscle, Percutaneous Approach (ICD-10-PCS; principal; 2021-09-16)
DX: M54.50 Low back pain, unspecified (principal)
CPT/HCPCS: 72100-TC-FY; 72170-TC-FY; 99284-25

== ENCOUNTER 2021-10-21 07:36 | Day surgery (SDC) | payer OTHER ==
[2021-10-21 09:02] LABS: BASO % 1.6 % (0-2.0); HEMATOCRIT 12.9 % (32.4-45.2); LYMPH % 10.5 % (8-40); MCH 39.3 pg (25.7-33.7); MCHC 35.3 g/dl (32.0-36.0); MEAN CELL VOLUME 111.3 fl (80-96); MEAN PLT VOLUME 9.8 fl (7.5-11.1); MONO % 12.4 % (3.8-10.2); NEUT % 72.5 % (42.8-82.8); PLATELET COUNT 214 10^3/uL (134-434); RBC 1.16 M/mm3 (3.60-5.2); RDW 29.6 % (11.6-15.6); RETICULOCYTES 13.74 % (0.5-1.5)
[2021-10-21 09:04] LABS: WHITE BLOOD COUNT 13.5 K/mm3 (4.0-10.0)
[2021-10-21 09:08] LABS: HEMOGLOBIN 4.6 GM/dL (10.7-15.3)
[2021-10-21 09:16] LABS: ALBUMIN 2.7 g/dl (3.4-5.0); CALCIUM 8.5 mg/dL (8.5-10.1)
[2021-10-21 09:17] LABS: BLOOD UREA NITROGEN 44.9 mg/dL (7-18); MAGNESIUM 1.7 mg/dL (1.8-2.4)
[2021-10-21 09:18] LABS: URIC ACID 12.7 mg/dL (2.6-7.2)
[2021-10-21 09:19] LABS: BILIRUBIN,DIRECT 2.8 mg/dL (0.0-0.2); CREATININE 1.6 mg/dL (0.55-1.3)
[2021-10-21 09:20] LABS: BILIRUBIN,TOTAL 5.7 mg/dL (0.2-1)
[2021-10-21 09:21] LABS: TOT PROT 6.7 g/dl (6.4-8.2)
[2021-10-21] MEDS ORDERED: ACETAMINOPHEN 325 MG TABLET (FP) PO PRN ×2 (09:51→10:00)
[2021-10-21] MEDS ORDERED: oxyCODONE HCL 5 MG TABLET PO PRN ×2 (09:51→10:00)
[2021-10-21] MEDS ORDERED: FUROSEMIDE 40 MG TABLET (FP) PO ONE ×2 (10:00→14:45)
[2021-10-21] MEDS ORDERED: FUROSEMIDE 20 MG TABLET (FP) PO ONE (10:00)
[2021-10-21 10:31] LABS: ANISOCYTOSIS 2+; MACROCYTOSIS 1+; SICKELED CELLS 2+
[2021-10-21] MEDS ORDERED: POTASSIUM CHLORIDE TABS 20 MEQ TABLET.ER (FP) PO ONE (14:45)
[2021-10-21 16:38] VITALS: PULSE 75
[2021-10-21 19:30] LABS: BASO % 1.2 % (0-2.0); EOS % 2.5 % (0-4.5); HEMATOCRIT 22.9 % (32.4-45.2); HEMOGLOBIN 8.2 GM/dL (10.7-15.3); LYMPH % 11.7 % (8-40); MCH 34.7 pg (25.7-33.7); MCHC 35.7 g/dl (32.0-36.0); MEAN PLT VOLUME 9.2 fl (7.5-11.1); MONO % 11.5 % (3.8-10.2); NEUT % 73.1 % (42.8-82.8); PLATELET COUNT 221 10^3/uL (134-434); RBC 2.35 M/mm3 (3.60-5.2); RDW 25.2 % (11.6-15.6)
[2021-10-21 19:35] LABS: WHITE BLOOD COUNT 13.2 K/mm3 (4.0-10.0)
[2021-10-21 19:37] LABS: MEAN CELL VOLUME 97.4 fl (80-96)
[2021-10-24 07:50] VITALS: BP 143/67; TEMP 98.3
== END 2021-10-21 19:26 | disposition home or self-care (01) ==
LOC: JONCBLOOD 07:36
PROVIDERS: ATTEND Internal Medicine Hematology & Oncology
PROC: 30233H1 Transfusion of Nonautologous Whole Blood into Peripheral Vein, Percutaneous Approach (ICD-10-PCS; principal; 2021-10-21)
DX: D57.1 Sickle-cell disease without crisis (principal)
CPT/HCPCS: 36415; 36430; 80048; 80076; 82248; 82607; 82728; 83540; 83550; 83615; 83735; 84550; 85025; 85045; 86850; 86900; 86901; 86922; P9058

== ENCOUNTER 2021-11-11 06:34 | Day surgery (SDC) | payer OTHER ==
[2021-11-11 09:45] LABS: BASO % 0.9 % (0-2.0); HEMATOCRIT 15.6 % (32.4-45.2); LYMPH % 13.1 % (8-40); MCH 34.7 pg (25.7-33.7); MCHC 35.1 g/dl (32.0-36.0); MEAN PLT VOLUME 9.1 fl (7.5-11.1); MONO % 12.9 % (3.8-10.2); NEUT % 70.1 % (42.8-82.8); PLATELET COUNT 311 10^3/uL (134-434); RBC 1.58 M/mm3 (3.60-5.2); RDW 22.3 % (11.6-15.6); WHITE BLOOD COUNT 10.4 K/mm3 (4.0-10.0)
[2021-11-11 09:47] LABS: HEMOGLOBIN 5.5 GM/dL (10.7-15.3)
[2021-11-11] MEDS ORDERED: FUROSEMIDE 40 MG TABLET (FP) PO SCH (10:00)
[2021-11-11] MEDS ORDERED: POTASSIUM CHLORIDE TABS 20 MEQ TABLET.ER (FP) PO SCH (10:00)
[2021-11-11] MEDS ORDERED: FUROSEMIDE 20 MG TABLET (FP) PO SCH (10:00)
[2021-11-11 10:15] LABS: ANISOCYTOSIS 2+; MACROCYTOSIS 2+; SICKELED CELLS 1+; TARGET CELLS 1+
[2021-11-11 10:15] LABS: ALBUMIN 3.4 g/dl (3.4-5.0)
[2021-11-11 10:17] LABS: BILIRUBIN,DIRECT 3.4 mg/dL (0.0-0.2); URIC ACID 10.9 mg/dL (2.6-7.2)
[2021-11-11 10:18] LABS: CALCIUM 8.9 mg/dL (8.5-10.1); MAGNESIUM 1.8 mg/dL (1.8-2.4)
[2021-11-11 10:18] LABS: BILIRUBIN,TOTAL 7.6 mg/dL (0.2-1)
[2021-11-11 10:20] LABS: BILIRUBIN,TOTAL 7.5 mg/dL (0.2-1)
[2021-11-11 10:21] LABS: CREATININE 1.1 mg/dL (0.55-1.3)
[2021-11-11 10:31] VITALS: TEMP 98.9
[2021-11-11] MEDS ORDERED: oxyCODONE HCL 5 MG TABLET PO PRN ×2 (13:10→13:12)
[2021-11-11] MEDS ORDERED: ACETAMINOPHEN 325 MG TABLET (FP) PO PRN ×2 (13:11→13:13)
[2021-11-11 16:11] VITALS: BP 133/70; PULSE 83
[2021-11-11 21:16] LABS: HEMATOCRIT 22.5 % (32.4-45.2); HEMOGLOBIN 7.9 GM/dL (10.7-15.3); MCH 32.4 pg (25.7-33.7); MCHC 35.3 g/dl (32.0-36.0); MEAN PLT VOLUME 9.5 fl (7.5-11.1); PLATELET COUNT 284 10^3/uL (134-434); RBC 2.45 M/mm3 (3.60-5.2); RDW 20.9 % (11.6-15.6)
[2021-11-11 21:58] LABS: ANISOCYTOSIS 2+; MACROCYTOSIS 1+; SICKELED CELLS 1+
[2021-11-11 21:59] LABS: OVALOCYTE 1+; PLATELET ESTIMATE ADEQUATE
== END 2021-11-11 18:39 | disposition home or self-care (01) ==
LOC: JONCBLOOD 06:34
PROVIDERS: ATTEND Internal Medicine Hematology & Oncology
PROC: 30233H1 Transfusion of Nonautologous Whole Blood into Peripheral Vein, Percutaneous Approach (ICD-10-PCS; principal; 2021-11-11)
DX: D57.1 Sickle-cell disease without crisis (principal)
CPT/HCPCS: 36415; 36430; 80048; 80076; 82247; 82607; 82728; 83540; 83550; 83615; 83735; 84550; 85025; 85045; 86850; 86900; 86901; 86922; P9038; P9058

== ENCOUNTER 2022-01-20 09:33 | Day surgery (SDC) | payer OTHER ==
[2022-01-20 12:20] VITALS: RESP 18
[2022-01-20 12:39] LABS: HEMATOCRIT 17.5 % (32.4-45.2); MCH 32.8 pg (25.7-33.7); MCHC 36.8 g/dl (32.0-36.0); MEAN PLT VOLUME 9.1 fl (7.5-11.1); PLATELET COUNT 297 10^3/uL (134-434); RBC 1.97 M/mm3 (3.60-5.2); RDW 27.3 % (11.6-15.6); WHITE BLOOD COUNT 12.4 K/mm3 (4.0-10.0)
[2022-01-20 12:44] LABS: HEMOGLOBIN 6.5 GM/dL (10.7-15.3)
[2022-01-20 13:09] LABS: CALCIUM 9.5 mg/dL (8.5-10.1)
[2022-01-20 13:10] LABS: BLOOD UREA NITROGEN 54.4 mg/dL (7-18)
[2022-01-20 13:12] LABS: URIC ACID 11.5 mg/dL (2.6-7.2)
[2022-01-20 13:13] LABS: BILIRUBIN,DIRECT 1.9 mg/dL (0.0-0.2); CREATININE 1.4 mg/dL (0.55-1.3)
[2022-01-20 13:14] LABS: BILIRUBIN,TOTAL 6.8 mg/dL (0.2-1); TOT PROT 9.3 g/dl (6.4-8.2)
[2022-01-20 15:03] LABS: ANISOCYTOSIS 3+; MACROCYTOSIS 2+; SICKELED CELLS 2+
[2022-01-20 17:21] VITALS: BP 129/45; PULSE 71; TEMP 98.4
== END 2022-01-20 17:53 | disposition home or self-care (01) ==
LOC: JONCBLOOD 09:33
PROVIDERS: ATTEND Internal Medicine Hematology & Oncology
PROC: 30233H1 Transfusion of Nonautologous Whole Blood into Peripheral Vein, Percutaneous Approach (ICD-10-PCS; principal; 2022-01-20)
DX: D57.1 Sickle-cell disease without crisis (principal)
CPT/HCPCS: 36415; 36430; 80048; 80076; 82728; 83540; 83550; 83615; 84550; 85025; 86850; 86900; 86901; 86922; P9058